=== PATIENT | male | born 1990 | race Caucasian/White ===

== ENCOUNTER → 2018-03-19 09:07 | Outpatient (CLI) | payer OTHER, SELFPAY ==
--- NOTE | 2018-03-19 09:13 | RAD_ITS ---
STUDY: X-RAY - LEFT FOOT CLINICAL: Male, 27 years old. Rolled ankle 2 days ago. Lateral bruising. TECHNIQUE: view(s) of the foot. COMPARISON: None. FINDINGS: Normal talus, calcaneus, and tarsal bones. Normal visualized subtalar, talonavicular, calcaneocuboid, tarsal and tarsometatarsal articulations. Normal metatarsi. Normal metatarsophalangeal joint of the great toe. There is a bipartite fibula sesamoid. Normal interphalangeal joint of the great toe. Normal phalanges of the great toe. Normal second through fifth metatarsophalangeal joints. Normal interphalangeal joints and phalanges of the lesser toes. The soft tissue structures are unremarkable. RAD/Foot min 3 Views IMPRESSION: Normal x-ray examination of the foot. Electronically Signed: Claus Montero DO at 23:45 EDT Tel [phone], Service support ,
--- NOTE | 2018-03-19 09:13 | RAD_ITS ---
STUDY: X-RAY - LEFT ANKLE REASON FOR EXAM: Male, 27 years old. Rolled ankle 2 days ago. Lateral bruising. TECHNIQUE: 3 view(s) of the ankle. COMPARISON: Left foot, March 19, 2018. FINDINGS: Normal visualized distal tibia and fibula. There are small bony densities along the medial aspect of the talus near the tip of the medial malleolus which appear well-corticated. Normal tibiotalar articulation and ankle mortise. Normal visualized talus and calcaneus. The visualized subtalar, talonavicular, calcaneocuboid and tarsal articulations are normal. Soft tissue swelling about the ankle. RAD/Ankle min 3 Views IMPRESSION: Soft tissue swelling of the ankle. There are small bony densities along the medial malleolus thought to represent secondary ossicles versus old evulsion fractures. The possibility of a current avulsion fracture cannot be completely ruled out. Electronically Signed: Claus Montero DO at 23:47 EDT Tel [phone], Service support ,
== END ==
PROVIDERS: Family Provider Internal Medicine; PCP Internal Medicine; Visit Provider Physician Assistant
DX: S93.402A Sprain of unspecified ligament of left ankle, initial encounter (principal); S93.602A Unspecified sprain of left foot, initial encounter; X58.XXXA Exposure to other specified factors, initial encounter; Y93.9 Activity, unspecified; Y92.9 Unspecified place or not applicable; Y99.9 Unspecified external cause status
CPT/HCPCS: 73610; 73630

== ENCOUNTER → 2019-07-19 10:04 | Outpatient (CLI) | payer OTHER, SELFPAY ==
[2019-07-19 15:28] VITALS: BMI 29.5
== END ==
PROVIDERS: PCP Internal Medicine; Referring Provider Physician Assistant; Visit Provider Physician Assistant
DX: J02.9 Acute pharyngitis, unspecified (principal)
CPT/HCPCS: 87070; 87077; 87186

== ENCOUNTER 2019-09-10 23:53 | Emergency (ER) | payer OTHER, SELFPAY ==
[2019-08-19 17:26] VITALS: BMI 29.5
[2019-09-10 23:54] VITALS: BP 142/76; PULSE 127; RESP 20; TEMP 36.6; O2SAT 97; BMI 34.6
--- NOTE | 2019-09-11 00:01 | EKG12_ITS ---
Test Reason : DYSRHYTHMIA Blood Pressure : / mmHG Vent. Rate : 120 BPM Atrial Rate : 120 BPM P-R Int : 154 ms QRS Dur : 090 ms QT Int : 320 ms P-R-T Axes : 036 053 012 degrees QTc Int : 452 ms Sinus tachycardia Otherwise normal ECG Confirmed by ROLANDO QUEZADA, RAFI ([id number]), purchasing expeditor DEBORAH HOANG ([id number]) on 09/13/2019 1:50:20 PM Referred By: TL Confirmed By:KALYAN MARSHALL MD
--- NOTE | 2019-09-11 00:02 | ED.VIS.GEN ---
History of Present Illness Chief Complaint: Substance Abuse Informant: Patient Onset: Today Narrative: Patient brought by EMS from bar for palpitations after smoking for what is told a cigarette. This was at 11 PM. States he was drinking, states he smoked unfiltered cigarette for which he thought. Suddenly had palpitations racing heart and states feeling of impending doom. Nausea and vomiting. Denies any past medical history. Denies any illicit drug use. Allergy to pertussis. EMS EKG reviewed with sinus tachycardia in the 120s. Prior similar symptoms: No Past Medical History - Allergies and Home Meds Allergies/Adverse Reactions: Allergies PERTUSIS VAC Allergy (Uncoded 09/10/19 23:57) Hives Primary Care Physician: Sommer العراقي DO [Primary Care Provider] - Past Medical History: None Smoking Status: Never smoker Review of Systems General: Denies: Chills, Fever, Sweats Eyes: Denies: Visual changes - bilaterally, Diplopia ENT: Denies: Rhinorrhea, Sore throat Cardiovascular: Reports: Palpitations, Heart racing. Denies: Chest pain Respiratory: Denies: Dyspnea, Cough, Dyspnea on exertion Gastrointestinal: Reports: Nausea, Vomiting. Denies: Abdominal pain, Diarrhea, Melena, Hematochezia Genitourinary: Denies: Dysuria, Hematuria, Frequency Musculoskeletal: Denies: Back pain, Extremity Pain Skin: Denies: Rash, Wounds Neurological: Denies: Headache, Weakness, Numbness Physical Exam Vital Signs/Narrative: Vital Signs Temp Pulse Resp BP Pulse Ox 09/10/19 23:54 98 F 127 H 20 H 142/76 H 97 Inital Vital Signs reviewed: Yes General: Well nourished, Well developed, - - Anxious, nontoxic, cooperative following commands. Head: Normocephalic, Atraumatic Eyes: Perrl, EOMI ENT: Moist mucous membranes, No rhinorrhea Neck: Supple, Nontender Cardiovascular: Regular rate, Regular rhythm, No murmurs, Tachycardia Respiratory: No distress, CTA bilaterally, Chest nontender Abdomen: Soft, Nontender, Nondistended, Normal bowel sounds Back: Nontender, Normal Inspection Extremities: Nontender, No edema Skin: Normal color, No rash Neurological: Alert, Oriented x3, Cranial nerves II-XII grossly intact, Normal Strength, Normal Sensation Psychological: Normal affect, Normal Mood Diagnostic/Tx/Re-eval - Medical Decision Making Patient's history I suspect drug ingestion with a stimulant causing his palpitations and tachycardia. He is anxious. IV is placed IV fluids, Ativan given. Did initially order for tox screen for further evaluation however unable to collect. He was monitored heart rate improved to the low 100s, clinically was improving. He is clinically stable. He is not suicidal homicidal. He will be discharged with outpatient follow-up. All questions were answered. ED Disposition - Plan for ED Patient: Disposition: Home or Assisted Living Diagnosis: Palpitations, likely drug inhalation Instructions: Palpitations Referrals: Sommer العراقي DO [Primary Care Provider] - 5-7 Days Additional Instructions: Suspect you smoked drug stimulant causing symptoms.
[2019-09-11] MEDS: Ondansetron 4 MG/2 ML Vial IV (00:24)
[2019-09-11] MEDS: 0.9% Normal Saline 1,000 ML 1000 ML IV (00:24)
[2019-09-11] MEDS: LORazepam 2 MG/ML Syringe 1 MG IV (00:26)
[2019-09-11 02:33] VITALS: PULSE 104; RESP 16; O2SAT 96
[2019-09-11 03:31] VITALS: BP 145/70; PULSE 107; RESP 16; O2SAT 96
== END 2019-09-11 03:32 | disposition home or self-care (01) ==
PROVIDERS: Emergency Provider Emergency Medicine; PCP Internal Medicine
DX: R00.2 Palpitations (principal); R00.0 Tachycardia, unspecified
CPT/HCPCS: 93005; 96361; 96374; 96375; 99285; J7030; J2405

== ENCOUNTER → 2024-12-15 | Outpatient (CLI) | payer SELFPAY ==
--- NOTE | 2024-12-15 07:30 | CT_ITS ---
PROCEDURE: LIMITED CHEST CT CARDIAC ONLY 12/15/2024 REASON FOR EXAM: MIXED HYPERLIPIDEMIA TECHNIQUE: LIMITED CHEST CT CARDIAC ONLY One or more dose reduction techniques were used (e.g., Automated exposure control, adjustment of the mA and/or kV according to patient size, use of iterative reconstruction technique). RADIATION DOSE SUMMARY: CTDlvol: 12.19 mGy DLP: 219.42 mGycm COMPARISON: None FINDINGS: Mild right coronary artery calcification. The lungs are clear. Fatty infiltration of the liver. Small hiatal hernia. CT/Limited Chest CT Cardiac Only IMPRESSION: Mild degree of coronary artery calcification. Reading Location: [place] [id number]
--- NOTE | 2024-12-15 09:46 | CA.SCORE ---
Calcium Scoring Date of Study:: 12/15/24 Indications Indications: Hyperlipidemia Coronary Calcium Scoring: High-resolution Computed Tomographic imaging of the chest was performed on [12/15/2024], with particular attention paid to the coronary arteries. Images from the examination were analyzed for the presence and extent of coronary artery calcification , using coronary calcium quantification software. The patient tolerated the procedure well and there were no complications. The results of the coronary calcification analysis are provided below. Findings Coronary Artery Left Main (LM): 0 Left Anterior Descending (LAD): 0 Left Circumflex (LCX): 0 Right Coronary Artery (RCA): 0 Total Agatston Score: 0 Percentile Rankin% Calcium Scoring Interpretation: Different methods to categorize the overall amount of coronary plaque. Overall amount CAC SIS Visual of coronary plaque P1 Mild -100 <2 1-2 vessels with mild amount of plaque P2 Moderate 101-300 3-4 1-2 vessels with moderate amount, 3 vessels with mild amount of plaque P3 Severe 301-999 5-7 3 vessels with moderate amount, 1 vessel with severe amount of plaque P4 Extensive >1000 >8 2-3 vessels with severe amount of plaque Conclusion: No atherosclerotic plaque
== END | disposition home or self-care (01) ==
LOC: CT 07:28
PROVIDERS: PCP Internal Medicine; Referring Provider Internal Medicine; Visit Provider Internal Medicine
DX: E78.2 Mixed hyperlipidemia (principal)
CPT/HCPCS: 75571; 76380

== ENCOUNTER → 2025-05-16 | Outpatient (CLI) | payer OTHER, SELFPAY ==
--- OUTSIDE RECORDS SUMMARY | 2025-05-16 19:18 | XMS RPT_ITS | CCD ---
Author Organization [facility] Team Providers Care Veterans Service Officer Name Role Phone Sommer العراقي Unavailable Dileep Kelley Unavailable Rosalba Cook Unavailable Lashae Solomon Unavailable Unavailable Lashae Stevens Unavailable Unavailable Magno Layne Unavailable Unavailable Unavailable Unavailable Sommer العراقي Unavailable Ruth Hope Unavailable Dileep Kelley Unavailable Rosalba Cook Unavailable Magno Knox Unavailable Unavailable [place] Unavailable Unavailable Unavailable Neda Baron Unavailable Unavailable Yessica Sims Unavailable Unavailable Sommer العراقي DO Unavailable Ruth Hope Unavailable Dr. Dileep Kelley Unavailable Rosalba Cook MD Unavailable Loraine FLORENCE Neda Unavailable Unavailable Magno Knox LPN Unavailable Unavailable Unavailable Unavailable Sommer العراقي DO Unavailable Sommer العراقي DO Attending Unavailable Sommer العراقي DO Referring Unavailable Sommer العراقي DO Consulting Unavailable Korina LUNA, Kayela Unavailable Unavailable Dr. Sommer العراقي DO Primary Care Provider Dr. Sommer العراقي DO Attending Provider Dr. Sommer العراقي DO Referring Provider Dr. Sommer العراقي DO Other Provider Angelina QUEZADA, Dr. Galaviz Attending Provider Sommer العراقي Primary Care Unavailable Guillaume Alfaro Attending Unavailable Sommer العراقي Referring Unavailable Sommer العراقي Consulting Unavailable Sommer العراقي Primary Care Unavailable Sommer العراقي Referring Unavailable Sommer العراقي Attending Unavailable Allergies Allergy Classification Reported Allergen(s) Allergy Type Date of Onset Reaction(s) Facility (15 sources) acellular pertussis vaccine, inactivated / diphtheria toxoid vaccine, inactivated / tetanus toxoid vaccine, inactivated; Translations: [DTP Toxoids Adsorbed *TOXOIDS*] Drug Allergy [facility] Work Phone: Comment on above: as childrash (1 source) Pertussis Vaccines Allergy to substance 2 [facility] (1 source) Pertussis Vaccine Drug Allergy 2 [facility] Repository Medications Current Medications Medication Drug Class(es) Dates Sig (Normalized) Sig (Original) amoxicillin 875 mg / clavulanate 125 mg oral tablet (17 sources) Penicillin-class Antibacterial Start: 08-01-2022 Amoxicillin-Pot Clavulanate 875-125 mg tablet Active 1 {tbl} PO TWICE A DAY August 01, 2022 1:00am Start: 06-24-2019 End: 07-19-2019 Amoxicillin-Pot Clavulanate 875-125 mg tablet Discontinued 1 {tbl} PO TWICE A DAY June 24, 2019 1:00am July 19, 2019 4:28pm Start: 03-27-2017 End: 04-10-2017 take 1 tablet by mouth twice daily at mealtime Amoxicillin-Pot Clavulanate 875-125 MG Oral Tablet 1 (one) Tablet BID for 14 days Quantity: 28 {Tablet} Refills: 0 Ordered: 27-Mar-2017 Lashae Solomon Start : 27-Mar-2017 End : 10-Apr-2017 Inactive Comments: Take with food. Comment on above: Take with food. Completed/Discontinued Medications Medication Drug Class(es) Dates Sig (Normalized) Sig (Original) amLODIPine 2.5 mg oral tablet (13 sources) Dihydropyridine Calcium Channel Karli Start: 03-28-2022 take 1 tablet by mouth once daily Norvasc 2.5 MG Oral Tablet 1 (one) Tablet qd for 0 days Quantity: 30 {Tablet} Refills: 4 Ordered: 28-Mar-2022 Dulce Maria DO, Sommer Dulce Maria DO, Sommer Start : 28-Mar-2022 Active Start: 10-09-2021 take 1 tablet by marianne th once daily Norvasc 2.5 MG Oral Tablet 1 (one) Tablet qd for 0 days Quantity: 30 {Tablet} Refills: 4 Ordered: 09-Oct-2021 Dulce Maria DO, Sommer Dulce Maria DO, Sommer Start : 09-Oct-2021 Active Start: 01-22-2021 take 1 tablet by marianne th once daily Norvasc 2.5 MG Oral Tablet 1 (one) Tablet qd for 0 days Quantity: 30 {Tablet} Refills: 4 Ordered: 22-Jan-2021 Dulce Maria DO, Sommer Dulce Maria DO, Sommer Start : 22-Jan-2021 Active Start: 08-18-2020 take 1 tablet by marianne th once daily Norvasc 2.5 MG Oral Tablet 1 (one) Tablet qd for 0 days Quantity: 30 {Tablet} Refills: 4 Ordered: 18-Aug-2020 Dulce Maria DO, Sommer Dulce Maria DO, Sommer Start : 18-Aug-2020 Active Start: 03-15-2020 take 1 tablet by marianne th once daily Norvasc 2.5 MG Oral Tablet 1 (one) Tablet qd for 0 days Quantity: 30 {Tablet} Refills: 4 Ordered: 15-Mar-2020 Dulce Maria DO, Sommer Dulce Maria DO, Sommer Start : 15-Mar-2020 Active busPIRone hydrochloride 15 mg oral tablet (9 sources) Start: 2021 End: 03-28-2022 take 1 tablet by mouth twice daily busPIRone HCl 15 MG Oral Tablet 1 (one) Tablet bid for 0 days Quantity: 60 {Tablet} Refills: 3 Ordered: 28-Mar-2022 Calvin Hui CMA Start : 23-Jul-2021 End : 28-Mar-2022 Inactive Start: 02-12-2021 take 1 tablet by marianne th twice daily busPIRone HCl 15 MG Oral Tablet 1 (one) Tablet bid for 0 days Quantity: 60 {Tablet} Refills: 3 Ordered: 12-Feb-2021 Dulce Maria DO, Sommer Dulce Maria DO, Sommer Start : 12-Feb-2021 Active Start: 11-08-2020 take 1 tablet by marianne th twice daily busPIRone HCl 15 MG Oral Tablet 1 (one) Tablet bid for 0 days Quantity: 60 {Tablet} Refills: 3 Ordered: 08-Nov-2020 Dulce Maria DO, Sommer Dulce Maria DO, Sommer Start : 08-Nov-2020 Active Start: 08-04-2020 take 1 tablet by marianne th twice daily busPIRone HCl 15 MG Oral Tablet 1 (one) Tablet bid for 0 days Quantity: 60 {Tablet} Refills: 3 Ordered: 04-Aug-2020 Neda Baron LPN Start : 04-Aug-2020 Active citalopram 20 mg oral tablet (20 sources) Serotonin Reuptake Inhibitor Start: 04-05-2022 take 1 tablet by mouth once daily at bedtime Citalopram Hydrobromide 20 MG Oral Tablet 1 (one) Tablet qhs for 90 days Quantity: 90 {Tablet} Refills: 3 Ordered: 05-Apr-2022 Dulce Maria DO, Sommer Dulce Maria DO, Sommer Start : 05-Apr-2022 Active Start: 12-21-2020 take 1 tablet by marianne th once daily at bedtime Citalopram Hydrobromide 20 MG Oral Tablet 1 (one) Tablet qhs for 90 days Quantity: 90 {Tablet} Refills: 3 Ordered: 21-Dec-2020 Dulce Maria DO, Sommer Dulce Maria DO, Sommer Start : 21-Dec-2020 Active Start: 08-04-2020 take 1 tablet by marianne th once daily at bedtime Citalopram Hydrobromide 20 MG Oral Tablet 1 (one) Tablet qhs for 0 days Quantity: 30 {Tablet} Refills: 6 Ordered: 04-Aug-2020 Dulce Maria DO, Sommer Dulce Maria DO, Sommer Start : 04-Aug-2020 Active Start: 05-12-2020 take 1 tablet by marianne th once daily at bedtime Citalopram Hydrobromide 20 MG Oral Tablet 1 (one) Tablet qhs for 0 days Quantity: 30 {Tablet} Refills: 6 Ordered: 12-May-2020 [place] CNP Start : 12-May-2020 Active Start: 11-29-2019 End: 05-12-2020 take 1 tablet by mouth once daily at bedtime Citalopram Hydrobromide 10 MG Oral Tablet 1 (one) Tablet qhs for 0 days Quantity: 90 {Tablet} Refills: 4 Ordered: 12-May-2020 [place] Start : 29-Nov-2019 End : 12-May-2020 Inactive Start: 08-18-2018 take 1 tablet by marianne th once daily at bedtime Citalopram Hydrobromide 10 MG Oral Tablet 1 (one) Tablet qhs for 0 days Quantity: 30 {Tablet} Refills: 1 Ordered: 18-Aug-2018 Sommer العراقي DO, DO, Kathleen Start : 18-Aug-2018 Active Start: 06-09-2018 take 1 tablet by marianne th once daily at bedtime Citalopram Hydrobromide 10 MG Oral Tablet 1 (one) Tablet qhs for 0 days Quantity: 30 {Tablet} Refills: 1 Ordered: 09-Jun-2018 Drea Quinn DO Start : 09-Jun-2018 Active Start: 03-19-2018 take 10 mg by mouth once daily Citalopram 20 mg tablet Active 10 mg PO DAILY March 19, 2018 12:00am doxycycline hyclate 100 mg oral capsule (1 source) Tetracycline-class Drug Start: 2019 End: 2019 take 1 capsule by mouth twice daily Doxycycline Hyclate 100 mg capsule Discontinued 100 mg PO TWICE A DAY 18 04July 23, 2019 1:00am August 01, 2019 1:00am 2019 12:29pm esomeprazole 20 mg delayed release oral tablet (15 sources) Proton Pump Inhibitor Start: 12-25-2017 End: 01-24-2018 take 1 tablet by mouth once daily before mealtime NexIUM 24HR 20 MG Oral Tablet Delayed Release 1 (one) Tablet PO Daily Take at least 30 before a meal. for 30 days Quantity: 30 {Tablet} Refills: 0 Ordered: 25-Dec-2017 Lashae Solomon Start : 25-Dec-2017 End : 24-Jan-2018 Inactive hydrOXYzine pamoate 25 mg oral capsule (16 sources) Antihistamine Start: 01-31-2017 End: 11-29-2019 take 1 capsule by mouth every eight hours as needed for anxiety Vistaril 25 MG Oral Capsule 1 (one) Capsule Capsule q 8 hr prn anxiety for 0 days Quantity: 60 {Capsule} Refills: 0 Ordered: 29-Nov-2019 Elza Dumont CMAin Start : 31-Jan-2017 End : 29-Nov-2019 Inactive Comments: may substitute generic Start: 12-25-2016 End: 03-19-2018 take 1 capsule by mouth four times daily as needed for anxiety Hydroxyzine Pamoate 25 MG capsule Discontinued 25 mg PO 4 TIMES DAILY NEEDED as needed for Anxiety December 25, 2016 12:00am March 19, 2018 9:09am Comment on above: may substitute gener ic loratadine 10 mg oral tablet (15 sources) Start: 8 End: 0 take 1 tablet by mouth once daily Claritin 10 MG Oral Tablet 1 (one) Tablet Tablet PO Daily for 0 days Quantity: 30 {Tablet} Refills: 0 Ordered: 29-Nov-2019 Elza Dumont CMAin Start : 18-Nov-2017 End : 29-Nov-2019 Inactive LORazepam 0.5 mg oral tablet (15 sources) Benzodiazepine Start: 0 End: 2 take 1 tablet by mouth once daily as needed LORazepam 0.5 MG Oral Tablet 1 (one) Tablet qd prn for 0 days Quantity: 5 {Tablet} Refills: 0 Ordered: 28-Mar-2022 Korina Calvin LUNA Start : 12-May-2020 End : 28-Mar-2022 Inactive Comments: [email or web address] rrs run Start: 12-26-2016 End: 11-29-2019 take 1 tablet by mouth once daily as needed LORazepam 0.5 MG Oral Tablet 1 (one) Tablet Tablet qd prn for 0 days Quantity: 5 {Tablet} Refills: 0 Ordered: 29-Nov-2019 Luigiambrose Elza LUNAin Start : 26-Dec-2016 End : 29-Nov-2019 Inactive Comments: five Comment on above: five [id number] s run oseltamivir 75 mg oral capsule (15 sources) Neuraminidase Inhibitor Start: 017 End: 017 take 1 capsule by mouth twice daily Tamiflu 75 MG Oral Capsule 1 (one) Capsule Capsule BID for 5 days Quantity: 10 {Capsule} Refills: 0 Ordered: 25-Mar-2017 Neda Baron LPN Start : 25-Mar-2017 End : 30-Mar-2017 Inactive sulfamethoxazole 800 mg / trimethoprim 160 mg oral tablet (1 source) Dihydrofolate Reductase Inhibitor Antibacterial, Sulfonamide Antimicrobial Start: End: Sulfamethoxazole-Tr imethoprim 800-160 mg tablet Discontinued 1 {tbl} PO TWICE A DAY July 22, 2019 1:00am August 19, 2019 6:14pm NEGATED: Highlighted row has not occurred!drug or medication (7 sources) No Known Histori rebecca Medications NEGATED: Highlighted row has not occurred!No Known Historical Medications (5 sources) No Known Histori rebecca Medications Problems Active Problems Problem Classification Problem Date Documented Da te Episodic/Chronic Acute bronchitis (1 source) Acute bronchitis; Translations: [Acute bronchitis, unspecified] 08-01-2022 Episodic Anxiety disorders (20 sources) Anxiety; Translations: [Anxiety] 12-25-2017 Chronic Comment on above: Burn's depression sc ore: 41- moderate depressionBeck anxiety index: 32- moderate anxietyPHQ-9: 16 Cardiac dysrhythmias (1 source) Palpitations; Translations: [Palpitations] 09-12-2019 Episodic Conditions associated with dizziness or vertigo (18 sources) Lightheadedness; Translations: [Lightheaded] 12-25-2017 Episodic Contraceptive and procreative management (20 sources) Patient encounter status; Translations: [Family planning] 09-18-2020 Episodic Disorders of lipid metabolism (2 sources) Mixed hyperlipidemia; Translations: [Mixed hyperlipidemia] Onset: Chronic Esophageal disorders (20 sources) Gastroesophageal reflux disease; Translations: [Acid reflux] 12-25-2017 Chronic Essential hypertension (15 sources) Benign hypertension; Translations: [HTN (hypertension), benign] 09-18-2020 Chronic Fever of unknown origin (20 sources) Fever with chills; Translations: [Fever and chills] Resolved: 8 09-12-2017 Episodic Headache; including migraine (20 sources) Headache; Translations: [Headache] Resolved: 8 09-12-2017 Episodic Influenza (6 sources) Influenza Malaise and fatigue (20 sources) Fatigue; Translations: [Fatigue] Resolved: 8 09-12-2017 Episodic Nutritional deficiencies (20 sources) Vitamin D deficiency; Translations: [Vitamin D deficiency] 05-12-2020 Chronic Nutritional deficiencies (20 sources) Cobalamin deficiency; Translations: [B12 deficiency] 12-25-2017 Episodic Other circulatory disease (20 sources) Elevated blood pressure; Translations: [Elevated blood pressure reading] Resolved: 1 05-12-2020 Episodic Other ear and sense organ disorders (19 sources) Impacted cerumen, bilateral; Translations: [Impacted cerumen of bilateral ears] Resolved: 8 09-12-2017 Episodic Comment on above: Will come back when feeling better to get ears irrigated. Other gastrointestinal disorders (18 sources) Burping; Translations: [Belching] Resolved: 0 12-25-2017 Episodic Other gastrointestinal disorders (20 sources) Heartburn; Translations: [Heartburn] 12-25-2017 Episodic Other lower respiratory disease (20 sources) Cough; Translations: [Cough] Resolved: 0 12-25-2017 Episodic Other lower respiratory disease (18 sources) Apnea; Translations: [Witnessed episode of apnea] 12-25-2017 Episodic Other lower respiratory disease (20 sources) Dyspnea; Translations: [SOB (shortness of breath)] Resolved: 7 02-21-2017 Episodic Other nervous system disorders (20 sources) Paresthesia; Translations: [Paresthesia] Resolved: 0 12-25-2017 Episodic Other nutritional; endocrine; and metabolic disorders (20 sources) Body mass index 30+ - obesity; Translations: [BMI 31.0-31.9,adult] Resolved: 2 09-12-2017 Chronic Other nutritional; endocrine; and metabolic disorders (7 sources) Body mass index 25-29 - overweight; Translations: [BMI 29.0-29.9,adult] Resolved: 8 09-12-2017 Episodic Other nutritional; endocrine; and metabolic disorders (4 sources) Overweight in adulthood with body mass index of 25 or more but less than 30; Translations: [BMI 29.0-29.9,adult] Resolved: 8 09-12-2017 Episodic Other skin disorders (2 sources) Alopecia areata; Translations: [Patchy loss of hair] 12-25-2017 Episodic Other skin disorders (20 sources) Loss of hair; Translations: [Patchy loss of hair] 05-12-2020 Episodic Comment on above: gre back but seals Other upper respiratory disease (18 sources) Allergic rhinitis due to pollen; Translations: [Seasonal allergic rhinitis due to pollen] 12-25-2017 Chronic Other upper respiratory disease (20 sources) Pain in throat Episodic Other upper respiratory disease (18 sources) Nasal discharge; Translations: [Nasal drainage] Resolved: 0 12-25-2017 Episodic Other upper respiratory disease (18 sources) Nasal sinus problem; Translations: [Sinus pressure] Resolved: 8 09-12-2017 Episodic Other upper respiratory infections (18 sources) Chronic sinusitis, unspecified; Translations: [Bacterial sinusitis] Resolved: 8 09-12-2017 Chronic Other upper respiratory infections (20 sources) Sore throat symptom; Translations: [Sore throat] 11-18-2017 Episodic Comment on above: Rapid strep done 03/01 6-negative, awaitng throat culture results. Residual codes; unclassified (18 sources) Generalized aches and pains; Translations: [Body aches] Resolved: 8 09-12-2017 Episodic Residual codes; unclassified (20 sources) Non-smoker; Translations: [Non-smoker] 09-18-2020 Episodic Residual codes; unclassified (6 sources) Influenza vaccination declined; Translations: [Influenza vaccination declined (Renamed from Refused influenza vaccine)] 03-28-2022 Episodic Sprains and strains (3 sources) Shoulder strain; Translations: [Strain of unspecified muscle, fascia and tendon at shoulder and upper arm level, right arm, initial encounter] 06-25-2019 Episodic Unclassified (20 sources) BMI 31.0-31.9,adult Unclassified (20 sources) Unclassified (20 sources) B12 deficiency Unclassified (20 sources) Patient encounter status; Translations: [Encounter for screening for lipid disorder] 12-25-2017 Unclassified (20 sources) Non-smoker; Translations: [Non-smoker] 12-25-2017 Unclassified (20 sources) Patchy loss of hair Unclassified (12 sources) Family planning Unclassified (12 sources) Witnessed episode of apnea Unclassified (20 sources) Elevated blood pressure reading Unclassified (20 sources) BMI 32.0-32.9,adult Unclassified (6 sources) HTN (hypertension), benign Unclassified (10 sources) Acid reflux Past or Other Problems Problem Classification Problem Date Documented Da te Episodic/Chronic Esophageal disorders (2 sources) Esophageal disorders Headache; including migraine (15 sources) Headache; including migraine Other ear and sense organ disorders (5 sources) Impacted cerumen of bilateral ears; Translations: [Bilateral impacted cerumen] Resolved: 09-12-2017 09-12-2017 Comment on above: Will come back when feeling better to get ears irrigated. Other nutritional; endocrine; and metabolic disorders (5 sources) Body mass index 25-29 - overweight; Translations: [BMI 29.0-29.9,adult] Resolved: 09-12-2017 09-12-2017 Chronic Residual codes; unclassified (2 sources) Increased body mass index; Translations: [BMI 29.0-29.9,adult] Resolved: 09-12-2017 09-12-2017 Episodic Unclassified (20 sources) Bilateral impacted cerumen Unclassified (12 sources) Body aches Unclassified (20 sources) BMI 30.0-30.9,adult Unclassified (12 sources) Sinusitis, bacterial Unclassified (12 sources) Lightheaded Unclassified (12 sources) BMI 29.0-29.9,adult Unclassified (12 sources) Sinus pressure Unclassified (12 sources) Belching Unclassified (12 sources) Seasonal allergic rhinitis due to pollen Unclassified (12 sources) Nasal drainage Unclassified (1 source) history of left shoulder repair 01-18-2022 Results Test Name Value Interpretation Reference Range Facility Coronary Angiography CTon Coronary Angiography [facility] Services [address] [place] [address] 12/15/24 0946 MR#: [id number] Acct: [id number] Name: SHEYLA LAWRENCE Rep #: [id number] : 1990 34 From: Guillaume Alfaro MD PCP: Dr. Sommer العراقي, DO Status:REG CLI Y Location: CT Calcium Scoring Date of Study:: 12/15/24 Indications Indications: Hyperlipidemia Coronary Calcium Scoring: High-resolution Computed Tomographic imaging of the chest was performed on [12/15/2024], with particular attention paid to the coronary arteries. Images from the examination were analyzed for the presence and extent of coronary artery calcification , using coronary calcium quantification software. The patient tolerated the procedure well and there were no complications. The results of the coronary calcification analysis are provided below. Findings Coronary Artery Left Main (LM): 0 Left Anterior Descending (LAD): 0 Left Circumflex (LCX): 0 Right Coronary Artery (RCA): 0 Total Agatston Score: 0 Percentile Rankin% Calcium Scoring Interpretation: Different methods to categorize the overall amount of coronary plaque. Overall amount CAC SIS Visual of coronary plaque P1 Mild -100 <2 1-2 vessels with mild amount of plaque P2 Moderate 101-300 3-4 1-2 vessels with moderate amount, 3 vessels with mild amount of plaque P3 Severe 301-999 5-7 3 vessels with moderate amount, 1 vessel with severe amount of plaque P4 Extensive >1000 >8 2-3 vessels with severe amount of plaque Conclusion: No atherosclerotic plaque 12/15/24 0948 Date Guillaume Alfaro MD Cosigner Signature (if applicable): Date CC: Dr. Guillaume Alfaro MD; Dr. Sommer العراقي DO Signed Normal [facility] Limited Chest CT Cardiac Onl yon 12-15-[address] Cardiac Only [facility] Imaging Services [address] [place] [id number] Cardiac Only MR#: [id number] Acct: [id number] Name: SHEYLA LAWRENCE Rep #: [id number] : 1990 M 34 From: Guicho montiel MD PCP: Dr. Sommer العراقي DO Status: REG CLI Study: Limited Chest CT Cardiac Only Date of Exam: Exam# [id number] Ordering Dr: Sommer العراقي DO PROCEDURE: LIMITED CHEST CT CARDIAC ONLY 12/15/2024 REASON FOR EXAM: MIXED HYPERLIPIDEMIA TECHNIQUE: LIMITED CHEST CT CARDIAC ONLY One or more dose reduction techniques were used (e.g., Automated exposure control, adjustment of the mA and/or kV according to patient size, use of iterative reconstruction technique). RADIATION DOSE SUMMARY: CTDlvol: 12.19 mGy DLP: 219.42 mGycm COMPARISON: None FINDINGS: Mild right coronary artery calcification. The lungs are clear. Fatty infiltration of the liver. Small hiatal hernia. CT/Limited Chest CT Cardiac Only IMPRESSION: Mild degree of coronary artery calcification. Reading Location: [place] [address] CC: Dr. Sommer العراقي DO Assistant Branch Operations Manager: Signed Normal [facility] CALCIFIDIOL ([id number]) VIT D 25 Ordered By: Airline Transport Pilot on 04-17-2022 25-hydroxyvitamin D [Mass/Vol] 31.8 ng/mL Normal 30.0-100.0 [facility]; [facility] Work Phone: Comment on above: Vitamin D deficiency has been defined by the [place] of[employer] and an Endocrine Society practice guideline as alevel of serum 25-OH vitamin D less than 20 ng/mL (1,2).The Endocrine Society went on to further define vitamin Dinsufficiency as a level between 21 and 29 ng/mL (2).1. IOM ([place] of [employer]). 2010. Dietary reference intakes for calcium and D. [place]: The National Academies Press.2. Sabrina MF, Lara [place], Gilmer JACOME, et al. Evaluation, treatment, and prevention of vitamin D deficiency: an Endocrine Society clinical practice guideline. JCEM. 2010; 96(7):1911-30. PATIENT WAS FASTINGP ERFORMED BY: [id number] [facility] [id number] CBC W/AUTO DIFF WBC (81181)O rdered By: Airline Transport Pilot on 04-17-2022 Basophils (Bld) [#/Vol] 0.0 10*3/uL Normal 0.0-0.2 [facility]; [facility] Work Phone: Comment on above: PATIENT WAS FASTINGP ERFORMED BY: [facility] [id number]Dublin [place] [id number] Basophils/100 WBC (Bld) 1 % Normal [facility]; [facility] Work Phone: Comment on above: PATIENT WAS FASTINGP ERFORMED BY: CB [facility] [id number]Dublin [place] [id number] Eosinophils (Bld) [#/Vol] 0.1 10*3/uL Normal 0.0-0.4 [facility]; [facility] Work Phone: Comment on above: PATIENT WAS FASTINGP ERFORMED BY: [facility] [id number]Dublin [place] [id number] Eosinophils/100 WBC (Bld) 1 % Normal [facility]; [facility] Work Phone: Comment on above: PATIENT WAS FASTINGP ERFORMED BY: [facility] [id number] [facility] [id number] Erythrocyte distribution width (RBC) [Ratio] 12.1 % Normal 11.6-15.4 [facility]; [facility] Work Phone: Comment on above: PATIENT WAS FASTINGP ERFORMED BY: [facility] [id number] RoadNovant Health [facility] Orthopaedic Hospitalin [place] [id number] Hematocrit (Bld) [Volume fraction] 49.4 % Normal 37.5-51.0 [facility]; [facility] Work Phone: Comment on above: PATIENT WAS FASTINGP ERFORMED BY: [facility] [id number]Dublin [place] [id number] Hemoglobin (Bld) [Mass/Vol] 17.0 g/dL Normal 13.0-17.7 [facility]; [facility] Work Phone: Comment on above: PATIENT WAS FASTINGP ERFORMED BY: CB [facility] [id number]Dublin [place] [id number] Immature granulocytes (Bld) [#/Vol] 0.0 10*3/uL Normal 0.0-0.1 [facility]; [facility] Work Phone: Comment on above: PATIENT WAS FASTINGP ERFORMED BY: BRUCE Lab[facility] Lazaro[address] [place] [id number] Immature granulocytes/100 WBC (Bld) 0 % Normal [facility]; [facility] Work Phone: Comment on above: PATIENT WAS FASTINGP ERFORMED BY: [facility] [id number] [place] [id number] Lymphocytes (Bld) [#/Vol] 1.7 10*3/uL Normal 0.7-3.1 [facility]; [facility] Work Phone: Comment on above: PATIENT WAS FASTINGP ERFORMED BY: BRUCE Cornelius [id number] [facility] [place] [id number] Lymphocytes/100 WBC (Bld) 39 % Normal [facility]; [facility] Work Phone: Comment on above: PATIENT WAS FASTINGP ERFORMED BY: [facility] Hnyzco[address] [facility]in [place] [id number] MCH (RBC) [Entitic mass] 30.4 pg Normal 26.6-33.0 [facility]; [facility] Work Phone: Comment on above: PATIENT WAS FASTINGP ERFORMED BY: [facility] Laevdm[address] [facility]blin [place] [id number] MCHC (RBC) [Mass/Vol] 34.4 g/dL Normal 31.5-35.7 [facility] prehensive Internal Medicine; [facility] Work Phone: Comment on above: PATIENT WAS FASTINGP ERFORMED BY: Labco Iqnuwy[address] [facility] HospitalDublin [place] [id number] MCV (RBC) [Entitic vol] 88 fL Normal 79-97 [facility]; [facility] Work Phone: Comment on above: PATIENT WAS FASTINGP ERFORMED BY: [facility] Ryqfzi5[address] RoadDublin [place] [id number] Monocytes (Bld) [#/Vol] 0.5 10*3/uL Normal 0.1-0.9 [facility]; [facility] Work Phone: Comment on above: PATIENT WAS FASTINGP ERFORMED BY: BRUCE [facility] Wwinsf3986 [address] RoadDublin [place] [id number] Monocytes/100 WBC (Bld) 13 % Normal [facility]; [facility] Work Phone: Comment on above: PATIENT WAS FASTINGP ERFORMED BY: CB [facility] Bbxlxi2842 [address] RoadDublin [place] [id number] Neutrophils (Bld) [#/Vol] 2.0 10*3/uL Normal 1.4-7.0 [facility]; [facility] Work Phone: Comment on above: PATIENT WAS FASTINGP ERFORMED BY: CB [facility] Lyardo2817 [address] RoadDublin [place] [id number] Neutrophils/100 WBC (Bld) 46 % Normal [facility]; [facility] Work Phone: Comment on above: PATIENT WAS FASTINGP ERFORMED BY: CB [facility] Bllohp7902 [address] RoadDublin [place] [id number] Platelets (Bld) [#/Vol] 236 10*3/uL Normal 150-450 [facility]; [facility] Work Phone: Comment on above: PATIENT WAS FASTINGP ERFORMED BY: CB [facility] Wpoyot3053 [address] RoadDublin [place] [id number] RBC (Bld) [#/Vol] 5.60 10*6/uL Normal 4.14-5.80 Compr ehensive Internal Medicine; [facility] Work Phone: Comment on above: PATIENT WAS FASTINGP ERFORMED BY: CB [facility] Cjeuce7989 [address] RoadDublin [place] [id number] WBC (Bld) [#/Vol] 4.3 10*3/uL Normal 3.4-10.8 Compre hensive Internal Medicine; [facility] Work Phone: Comment on above: PATIENT WAS FASTINGP ERFORMED BY: CB [facility] Cmnbka1148 [address] RoadDublin [place] [id number] GONORRHEA BY URINE ([id number])Or dered By: Airline Transport Pilot on 04-17-2022 C. trachomatis rRNA JEFF+probe Ql (Unsp spec) Negative Normal [facility]; [facility] Work Phone: Comment on above: PATIENT NOT FASTINGP ERFORMED BY: =G [facility] Hrhrqgwcak722 [facility] W [id number] Information: SRC:UR N. gonorrhoeae rRNA JEFF+probe Ql (Unsp spec) Negative Normal [facility]; [facility] Work Phone: Comment on above: PATIENT NOT FASTINGP ERFORMED BY: =G [facility] Qsgjnrmopb670 [facility] [place] [id number] Information: SRC:UR LIPID PANEL (97417)Ordered B y: Airline Transport Pilot on 04-17-2022 Cholesterol [Mass/Vol] 224 mg/dL Abnormal 100-199 Co cox northensive Internal Medicine; [facility] Work Phone: Comment on above: PATIENT WAS FASTINGP ERFORMED BY: BRUCE [facility] Izfsld0989 [address] RoadDublin [place] [id number] Cholesterol in HDL [Mass/Vol] 50 mg/dL Normal [facility]; [facility] Work Phone: Comment on above: PATIENT WAS FASTINGP ERFORMED BY: CB [facility] Jnygjl5024 [address] RoadDublin [place] [id number] Triglyceride [Mass/Vol] 100 mg/dL Normal 0-149 [facility]; [facility] Work Phone: Comment on above: PATIENT WAS FASTINGP ERFORMED BY: CB [facility] Iuwtcf1500 [address] RoadDublin [place] [id number] LIPID PANEL (72367) 18 mg/dL Normal 5-40 Compr ehensive Internal Medicine; [facility] Work Phone: Comment on above: PATIENT WAS FASTINGP ERFORMED BY: CB [facility] Azaoxa4027 [address] RoadDublin [place] [id number] LIPID PANEL (80815) 156 mg/dL Abnormal 0-99 Compr ehensive Internal Medicine; [facility] Work Phone: Comment on above: PATIENT WAS FASTINGP ERFORMED BY: CB [facility] Fxkrlr3107 [address] RoadDublin [place] [id number] LIPID PANEL (62959) 3.1 {ratio} Normal 0.0-3.6 [facility] Internal Medicine; [facility] Work Phone: Comment on above: LDL/HDL Ratio Men Wo men 1/2 Avg.Risk 1.0 1.5 Avg.Risk 3.6 3.2 2X Avg.Risk 6.2 5.0 3X Avg.Risk 8.0 6.1 PATIENT WAS FASTINGP ERFORMED BY: CB [facility] Qlqiam1632 [address] RoadDublin [place] [id number] METABOLIC PANEL, COMPREHENSI VE (70732)Ordered By: Airline Transport Pilot on 04-17-2022 Albumin [Mass/Vol] 4.7 g/dL Normal 4.0-5.0 [facility] Internal Medicine; [facility] Work Phone: Comment on above: PATIENT WAS FASTINGP ERFORMED BY: CB [facility] Vlqbin2420 [address] RoadDublin [place] [id number] Albumin/Globulin [Mass ratio] 2.0 {ratio} Normal 1.2-2.2 [facility]; [facility] Work Phone: Comment on above: PATIENT WAS FASTINGP ERFORMED BY: CB [facility] Juoglk4895 [address] RoadDublin [place] [id number] ALP [Catalytic activity/Vol] 90 U/L Normal 44-121 [facility]; [facility] Work Phone: Comment on above: PATIENT WAS FASTINGP ERFORMED BY: CB [facility] Bfkiye8408 [address] RoadDublin [place] [id number] ALT [Catalytic activity/Vol] 36 U/L Normal 0-44 [facility]; [facility] Work Phone: Comment on above: PATIENT WAS FASTINGP ERFORMED BY: CB [facility] Imokfb4678 [address] RoadDublin [place] [id number] AST [Catalytic activity/Vol] 46 U/L Abnormal 0-40 [facility]; [facility] Work Phone: Comment on above: PATIENT WAS FASTINGP ERFORMED BY: [facility] Pkmoqk4908 [address] RoadDublin [place] [id number] Bilirubin [Mass/Vol] 0.4 mg/dL Normal 0.0-1.2 Comp rehensive Internal Medicine; [facility] Work Phone: Comment on above: PATIENT WAS FASTINGP ERFORMED BY: CB [facility] Ofjtzg3897 [address] RoadDublin [place] [id number] Calcium [Mass/Vol] 9.3 mg/dL Normal 8.7-10.2 [facility] Internal [facility]; [facility] Work Phone: Comment on above: PATIENT WAS FASTINGP ERFORMED BY: [facility] Yzmwxf5881 [address] RoadDublin [place] [id number] Chloride [Moles/Vol] 102 mmol/L Normal 96-106 Comp rehensive Internal Medicine; [facility] Work Phone: Comment on above: PATIENT WAS FASTINGP ERFORMED BY: [facility] Szlmrr9265 [address] RoadDublin [place] [id number] CO2 [Moles/Vol] 24 mmol/L Normal 20-29 Com[facility]hen [facility]; [facility] Work Phone: Comment on above: PATIENT WAS FASTINGP ERFORMED BY: [facility] Tvozsw9621 [address] RoadDublin [place] [id number] Creatinine [Mass/Vol] 0.82 mg/dL Normal 0.76-1.27 [facility]erens[facility]; [facility] Work Phone: Comment on above: PATIENT WAS FASTINGP ERFORMED BY: [facility] Byarlm4622 [address] RoadDublin [place] [id number] GFR/1.73 sq M.predicted among non-blacks MDRD (S/P/Bld) [Vol rate/Area] 119 mL/min/{1.73_m2} Normal Comprehensi ve Internal Medicine; [facility] Work Phone: Comment on above: PATIENT WAS FASTINGP ERFORMED BY: [facility] Lothfc5711 [address] RoadDublin [place] [id number] Globulin (S) [Mass/Vol] 2.4 g/dL Normal 1.5-4.5 [facility] Internal Medicine; [facility] Work Phone: Comment on above: PATIENT WAS FASTINGP ERFORMED BY: BRUCE [facility]enssm [facility] Uscqtm3809 [facility] [id number] Glucose [Mass/Vol] 92 mg/dL Normal 70-99 [facility] Internal Medicine; [facility] Work Phone: Comment on above: PATIENT WAS FASTINGP ERFORMED BY: BRUCE LabHenry [facility]6370 [facility] [id number] Potassium [Moles/Vol] 4.5 mmol/L Normal 3.5-5.2 [facility]erens[facility]; [facility] Work Phone: Comment on above: PATIENT WAS FASTINGP ERFORMED BY: BRUCE [facility] Amftit4854 [facility] [id number] Protein [Mass/Vol] 7.1 g/dL Normal 6.0-8.5 [facility] Internal Medicine; [facility] Work Phone: Comment on above: PATIENT WAS FASTINGP ERFORMED BY: BRUCE [facility] Dadvmr4616 [facility] [id number] Sodium [Moles/Vol] 139 mmol/L Normal 134-144 [facility] Internal Medicine; [facility] Work Phone: Comment on above: PATIENT WAS FASTINGP ERFORMED BY: LabHenry [facility]6370 [facility] [id number] Urea nitrogen [Mass/Vol] 11 mg/dL Normal 6-20 [facility]; [facility] Work Phone: Comment on above: PATIENT WAS FASTINGP ERFORMED BY: BRUCE [facility]ss[facility] Wofpai5609 [facility] [id number] Urea nitrogen/Creatinine [Mass ratio] 13 mg/mg Normal 9-20 [facility]; [facility] Work Phone: Comment on above: PATIENT WAS FASTINGP ERFORMED BY: BRUCE Labcochika Pirevb9638 [address] RoadDublin [place] [id number] MICROALBUMINOrdered By: Syst em Nurse Educator on 04-17-2022 Albumin DL <= 20 mg/L (U) [Mass/Vol] mg/dL Normal [facility]; [facility] Work Phone: Comment on above: PATIENT WAS FASTINGP ERFORMED BY: BRUCE Labcochika Mydjas6486 [address] RoadDublin [place] [id number] Albumin/Creatinine (U) [Mass ratio] <5 Normal 0-29 [facility]; [facility] Work Phone: Comment on above: Normal: 0 - 29 Moder ately increased: 30 - 300 Severely increased: >300 PATIENT WAS FASTINGP ERFORMED BY: BRUCE Labmonique Wdhmzt4856 [address] RoadDublin [place] [id number] Creatinine (U) [Mass/Vol] 59.9 mg/dL Normal [facility]; [facility] Work Phone: Comment on above: PATIENT WAS FASTINGP ERFORMED BY: BRUCE Labmonique SalmonXtjwdy2721 [address] RoadDublin [place] [id number] URINALYSIS, W/ MICRO ([id number]) Ordered By: Airline Transport Pilot on 04-17-2022 Appearance (U) Clear Normal Comprehens charly Internal Medicine; [facility] Work Phone: Comment on above: PATIENT WAS FASTINGP ERFORMED BY: BRUCE Labmonique SalmonBmshll6760 [address] RoadDublin [place] [id number] Bilirubin Ql (U) Negative Normal Comprehe nsive Internal Medicine; [facility] Work Phone: Comment on above: PATIENT WAS FASTINGP ERFORMED BY: BRUCE [facility] Wfobri9585 [address] RoadDublin [place] [id number] Color (U) Yellow Normal [facility]; [facility] Work Phone: Comment on above: PATIENT WAS FASTINGP ERFORMED BY: BRUCE Labmonique Rpbkxd5910 [address] RoadDublin [place] [id number] Glucose Ql (U) Negative Normal Comprehens charly Internal Medicine; [facility] Work Phone: Comment on above: PATIENT WAS FASTINGP ERFORMED BY: BRUCE Salmonlin6370 [address] RoadDublin [place] [id number] Hemoglobin Ql (U) Negative Normal Compreh ensive Internal Medicine; [facility] Work Phone: Comment on above: PATIENT WAS FASTINGP ERFORMED BY: BRUCE Salmonlin6370 [address] RoadDublin [place] [id number] Ketones Ql (U) Negative Normal Comprehens charly Internal Medicine; [facility] Work Phone: Comment on above: PATIENT WAS FASTINGP ERFORMED BY: BRUCE Labmonique SalmonFbqxuy0581 [address] RoadDublin [place] [id number] Leukocyte esterase Test strip Ql (U) Trace Abnormal [facility]; [facility] Work Phone: Comment on above: PATIENT WAS FASTINGP ERFORMED BY: BRUCE Salmonlin6370 [address] RoadDublin [place] [id number] Microscopic observation LM Nom (Urine sed) See below: Normal [facility]; [facility] Work Phone: Comment on above: Microscopic was barb cated and was performed. PATIENT WAS FASTINGP ERFORMED BY: BRUCE Salmonlin6370 [address] RoadDublin [place] [id number] Nitrite Ql (U) Negative Normal Comprehens charly Internal Medicine; [facility] Work Phone: Comment on above: PATIENT WAS FASTINGP ERFORMED BY: BRUCE Salmonlin6370 [address] RoadDublin [place] [id number] pH (U) 7.5 [pH] Normal 5.0-7.5 [facility]; [facility] Work Phone: Comment on above: PATIENT WAS FASTINGP ERFORMED BY: BRUCE Labmonique SalmonVzbnka3792 [address] RoadDublin [place] [id number] Protein Ql (U) Negative Normal Comprehens charly Internal Medicine; [facility] Work Phone: Comment on above: PATIENT WAS FASTINGP ERFORMED BY: BRUCE Salmonlin6370 [address] RoadDublin [place] [id number] Specific gravity (U) [Rel density] 1.012 1 Normal 1.005-1.030 [facility]; [facility] Work Phone: Comment on above: PATIENT WAS FASTINGP ERFORMED BY: BRUCE Moneysoftryanne Khlgqo6770 [facility] [id number] Urobilinogen (U) [Mass/Vol] 0.2 mg/dL Normal 0.2-1.0 [facility]; [facility] Work Phone: Comment on above: PATIENT WAS FASTINGP ERFORMED BY: [employer] Grskbw0921 [facility] [id number] VITAMIN B-12 (CYANOCOBALAMIN ) (62212)Ordered By: Airline Transport Pilot on 04-17-2022 Cobalamin (Vitamin B12) [Mass/Vol] 413 pg/mL Normal 232-1245 [facility]; [facility] Work Phone: Comment on above: PATIENT WAS FASTINGP ERFORMED BY: [employer] Gaztbf8080 [facility] [id number] CALCIFEDIOL (90579)Ordered B y: Airline Transport Pilot on 09-14-2020 25-Hydroxyvitamin D2+25-Hydroxyvitamin D3 [Mass/Vol] 28.5 ng/mL Abnormal 30.0-100.0 [facility]; [facility] Work Phone: Comment on above: Vitamin D deficiency has been defined by the [place] [facility]cine and an Endocrine Society practice guideline as alevel of serum 25-OH vitamin D less than 20 ng/mL (1,2).The Endocrine Society went on to further define vitamin Dinsufficiency as a level between 21 and 29 ng/mL (2).1. IOM ([place] of Medicine). 2010. Dietary reference intakes for calcium and D. [place]: The National Academies Press.2. Sabrina MF, Lara ALDANA, Gilmer JACOME, et al. Evaluation, treatment, and prevention of vitamin D deficiency: an Endocrine Society clinical practice guideline. JCEM. 2010; 96(7):1911-30. PATIENT WAS FASTINGP ERFORMED BY: 3 day Blind[employer] Sffies2230 [facility] [id number] CBC W/AUTO DIFF WBC (51582)O rdered By: Airline Transport Pilot on 09-14-2020 Basophils (Bld) [#/Vol] 0.0 {x10E3/uL} Normal 0.0-0.2 [facility]; [facility] Work Phone: Comment on above: PATIENT WAS FASTINGP ERFORMED BY: LabHenry [facility]6370 [facility] [id number] Basophils (Bld) [#/Vol] 0.0 10*3/uL Normal 0.0-0.2 [facility]; [facility] Work Phone: Comment on above: PATIENT WAS FASTINGP ERFORMED BY: LabYolanda [place]ille 6638070 [facility] [id number] Basophils/100 WBC (Bld) 1 % Normal [facility]; [facility] Work Phone: Comment on above: PATIENT WAS FASTINGP ERFORMED BY: [facility]6370 [facility] [id number] Eosinophils (Bld) [#/Vol] 0.1 {x10E3/uL} Normal 0.0-0.4 [facility]; [facility] Work Phone: Comment on above: PATIENT WAS FASTINGP ERFORMED BY: LabHenry [facility]6370 [facility] [id number] Eosinophils (Bld) [#/Vol] 0.1 10*3/uL Normal 0.0-0.4 [facility]; [facility] Work Phone: Comment on above: PATIENT WAS FASTINGP ERFORMED BY: LabHenry [facility]6370 [facility] [id number] Eosinophils/100 WBC (Bld) 2 % Normal [facility]; [facility] Work Phone: Comment on above: PATIENT WAS FASTINGP ERFORMED BY: LabHenry [facility]6370 [facility] [id number] Erythrocyte distribution width (RBC) [Ratio] 12.4 % Normal 11.6-15.4 [facility]; [facility] Work Phone: Comment on above: PATIENT WAS FASTINGP ERFORMED BY: BRUCE Lazaro[address] [facility]in [place] [id number] Hematocrit (Bld) [Volume fraction] 46.9 % Normal 37.5-51.0 [facility]; [facility] Work Phone: Comment on above: PATIENT WAS FASTINGP ERFORMED BY: BRUCE Lazaro[address] [facility] [id number] Hemoglobin (Bld) [Mass/Vol] 16.4 g/dL Normal 13.0-17.7 [facility]; [facility] Work Phone: Comment on above: PATIENT WAS FASTINGP ERFORMED BY: BRUCE Lazaro[address] [facility] [id number] Immature granulocytes (Bld) [#/Vol] 0.0 {x10E3/uL} Normal 0.0-0.1 [facility]; [facility] Work Phone: Comment on above: PATIENT WAS FASTINGP ERFORMED BY: BRUCE Lazaro[address] [facility] [id number] Immature granulocytes (Bld) [#/Vol] 0.0 10*3/uL Normal 0.0-0.1 [facility]; [facility] Work Phone: Comment on above: PATIENT WAS FASTINGP ERFORMED BY: BRUCE Fish Akgqsq[address] [facility]in [place] [id number] Immature granulocytes/100 WBC (Bld) 0 % Normal [facility]; [facility] Work Phone: Comment on above: PATIENT WAS FASTINGP ERFORMED BY: BRUCE LabCochika SalmonUybzqg06[address] [facility]bl[facility] [place] [id number] Lymphocytes (Bld) [#/Vol] 1.7 {x10E3/uL} Normal 0.7-3.1 [facility]; [facility] Work Phone: Comment on above: PATIENT WAS FASTINGP ERFORMED BY: BRUCE LabCo Jipdpi1592 [facility] [id number] Lymphocytes (Bld) [#/Vol] 1.7 10*3/uL Normal 0.7-3.1 [facility] Internal Medicine; [facility] Work Phone: Comment on above: PATIENT WAS FASTINGP ERFORMED BY: BRUCE NguyenPemiscot Memorial [facility] Jedkpd5130 [facility] [id number] Lymphocytes/100 WBC (Bld) 38 % Normal [facility]; [facility] Work Phone: Comment on above: PATIENT WAS FASTINGP ERFORMED BY: [facility] Psfgxb0637 [facility] [id number] MCH (RBC) [Entitic mass] 29.9 pg Normal 26.6-33.0 [facility]; [facility] Work Phone: Comment on above: PATIENT WAS FASTINGP ERFORMED BY: [facility] Rlprmw9336 [facility] [id number] MCHC (RBC) [Mass/Vol] 35.0 g/dL Normal 31.5-35.7 [facility] prehensive Internal Medicine; [facility] Work Phone: Comment on above: PATIENT WAS FASTINGP ERFORMED BY: BRUCE NguyenPemiscot Memorial [facility] Systems Erwxbe5825 [facility] [id number] MCV (RBC) [Entitic vol] 86 fL Normal 79-97 [facility]; [facility] Work Phone: Comment on above: PATIENT WAS FASTINGP ERFORMED BY: [facility]6370 [facility] [id number] Monocytes (Bld) [#/Vol] 0.5 {x10E3/uL} Normal 0.1-0.9 [facility]; [facility] Work Phone: Comment on above: PATIENT WAS FASTINGP ERFORMED BY: LabHenry [facility]6370 [facility] [id number] Monocytes (Bld) [#/Vol] 0.5 10*3/uL Normal 0.1-0.9 [facility]; [facility] Work Phone: Comment on above: PATIENT WAS FASTINGP ERFORMED BY: [facility] Xqkxnx5575 [address] RoadDublin [place] [id number] Monocytes/100 WBC (Bld) 10 % Normal [facility]; [facility] Work Phone: Comment on above: PATIENT WAS FASTINGP ERFORMED BY: [facility] Mxzrlx6587 [address] RoadDublin [place] [id number] Neutrophils (Bld) [#/Vol] 2.1 {x10E3/uL} Normal 1.4-7.0 [facility]; [facility] Work Phone: Comment on above: PATIENT WAS FASTINGP ERFORMED BY: [facility] Rocnma8966 [address] RoadDublin [place] [id number] Neutrophils (Bld) [#/Vol] 2.1 10*3/uL Normal 1.4-7.0 [facility]; [facility] Work Phone: Comment on above: PATIENT WAS FASTINGP ERFORMED BY: [facility] Eaufkv7634 [address] RoadDublin [place] [id number] Neutrophils/100 WBC (Bld) 49 % Normal [facility]; [facility] Work Phone: Comment on above: PATIENT WAS FASTINGP ERFORMED BY: [facility] Tzqgtr3323 [address] RoadDublin [place] [id number] Platelets (Bld) [#/Vol] 241 {x10E3/uL} Normal 150-450 [facility]; [facility] Work Phone: Comment on above: PATIENT WAS FASTINGP ERFORMED BY: [facility] Ajjceh0717 [address] RoadDublin [place] [id number] Platelets (Bld) [#/Vol] 241 10*3/uL Normal 150-450 [facility]; [facility] Work Phone: Comment on above: PATIENT WAS FASTINGP ERFORMED BY: [facility] Gnwzox4737 [address] RoadDublin [place] [id number] RBC (Bld) [#/Vol] 5.48 {x10E6/uL} Normal 4.14-5.80 Co mprehensive Internal Medicine; [facility] Work Phone: Comment on above: PATIENT WAS FASTINGP ERFORMED BY: BRUCE LabMonique Lazaro6[address] Roadblin [place] [id number] RBC (Bld) [#/Vol] 5.48 10*6/uL Normal 4.14-5.80 [facility]; [facility] Work Phone: Comment on above: PATIENT WAS FASTINGP ERFORMED BY: BRUCE LabMonique Lazaro6[address] Roadbl[address] [place] [id number] WBC (Bld) [#/Vol] 4.4 {x10E3/uL} Normal 3.4-10.8 [facility] Internal Medicine; [facility] Work Phone: Comment on above: PATIENT WAS FASTINGP ERFORMED BY: BRUCE LabMonique Lazaro[address] [place] [id number] WBC (Bld) [#/Vol] 4.4 10*3/uL Normal 3.4-10.8 [facility] Internal Medicine; [facility] Work Phone: Comment on above: PATIENT WAS FASTINGP ERFORMED BY: BRUCE LabMonique Lazaro[address] [facility]in [place] [id number] LIPID PANEL ([id number])Ordered B y: Airline Transport Pilot on 09-14-2020 Cholesterol [Mass/Vol] 248 mg/dL Abnormal 100-199 [facility] Internal Medicine; [facility] Work Phone: Comment on above: PATIENT WAS FASTINGP ERFORMED BY: BRUCE LabRyanne Kafmpl[address] [facility]in [place] [id number] Cholesterol in HDL [Mass/Vol] 49 mg/dL Normal [facility]; [facility] Work Phone: Comment on above: PATIENT WAS FASTINGP ERFORMED BY: BRUCE LabMonique SalmonZoaymx[address] [facility]bl[facility] [place] [id number] Cholesterol in LDL/Cholesterol in HDL [Mass ratio] 3.7 {ratio} Abnormal 0.0-3.6 [facility]; [facility] Work Phone: Comment on above: LDL/HDL Ratio Men Wo men 1/2 Avg.Risk 1.0 1.5 Avg.Risk 3.6 3.2 2X Avg.Risk 6.2 5.0 3X Avg.Risk 8.0 6.1 PATIENT WAS FASTINGP ERFORMED BY: BRUCE LabCochika Wdtbfi[address] RoadDublin [place] [id number] Triglyceride [Mass/Vol] 90 mg/dL Normal 0-149 [facility]; [facility] Work Phone: Comment on above: PATIENT WAS FASTINGP ERFORMED BY: BRUCE [facility] Wjyywo8841 [address] RoadDublin [place] [id number] LIPID PANEL (19757) 16 mg/dL Normal 5-40 [facility]; [facility] Work Phone: Comment on above: PATIENT WAS FASTINGP ERFORMED BY: BRUCE [facility] Xmhbme6397 [address] RoadDuin [place] [id number] LIPID PANEL (65092) 183 mg/dL Abnormal 0-99 [facility]; [facility] Work Phone: Comment on above: PATIENT WAS FASTINGP ERFORMED BY: BRUCE [facility] Jifvlg4651 [address] RoadDuin [place] [id number] LIPID PANEL (05226) 3.7 {ratio} Abnormal 0.0-3.6 [facility]; [facility] Work Phone: Comment on above: LDL/HDL Ratio Men Wo men 1/2 Avg.Risk 1.0 1.5 Avg.Risk 3.6 3.2 2X Avg.Risk 6.2 5.0 3X Avg.Risk 8.0 6.1 PATIENT WAS FASTINGP ERFORMED BY: BRUCE [facility] Drtutv3518 [address] RoadDublin [place] [id number] METABOLIC PANEL, COMPREHENSI VE (27034)Ordered By: Airline Transport Pilot on 09-14-2020 Albumin [Mass/Vol] 4.6 g/dL Normal 4.0-5.0 [facility]; [facility] Work Phone: Comment on above: PATIENT WAS FASTINGP ERFORMED BY: CB [facility] Hhlfbc4782 [address] RoadDublin [place] [id number] Albumin/Globulin [Mass ratio] 1.8 {ratio} Normal 1.2-2.2 [facility]; [facility] Work Phone: Comment on above: PATIENT WAS FASTINGP ERFORMED BY: BRUCE Lazaro6370 [address] RoadDublin [place] [id number] ALP [Catalytic activity/Vol] 89 [iU]/L Normal 39-117 [facility]; [facility] Work Phone: Comment on above: PATIENT WAS FASTINGP ERFORMED BY: BRUCE Salmonlin6370 [address] RoadDublin [place] [id number] ALP [Catalytic activity/Vol] 89 U/L Normal 39-117 [facility]; [facility] Work Phone: Comment on above: PATIENT WAS FASTINGP ERFORMED BY: BRUCE Kandice Lazaro[address] RoadDublin [place] [id number] ALT [Catalytic activity/Vol] 15 [iU]/L Normal 0-44 [facility]; [facility] Work Phone: Comment on above: PATIENT WAS FASTINGP ERFORMED BY: BRUCE Kandice Salmonlin[address] RoadDublin [place] [id number] ALT [Catalytic activity/Vol] 15 U/L Normal 0-44 [facility]; [facility] Work Phone: Comment on above: PATIENT WAS FASTINGP ERFORMED BY: BRUCE Salmonlin[address] RoadDublin [place] [id number] AST [Catalytic activity/Vol] 22 [iU]/L Normal 0-40 [facility]; [facility] Work Phone: Comment on above: PATIENT WAS FASTINGP ERFORMED BY: BRUCE Lab[facility] Ljcsyc1276 [address] RoadDublin [place] [id number] AST [Catalytic activity/Vol] 22 U/L Normal 0-40 [facility]; [facility] Work Phone: Comment on above: PATIENT WAS FASTINGP ERFORMED BY: BRUCE [facility] Yywndg8729 [address] RoadDublin [place] [id number] Bilirubin [Mass/Vol] 0.5 mg/dL Normal 0.0-1.2 Comp rehensive Internal Medicine; [facility] Work Phone: Comment on above: PATIENT WAS FASTINGP ERFORMED BY: CB [facility] Xvgpfc8412 [address] RoadDublin [place] [id number] Calcium [Mass/Vol] 9.3 mg/dL Normal 8.7-10.2 [facility]; [facility] Work Phone: Comment on above: PATIENT WAS FASTINGP ERFORMED BY: CB [facility] Apwfkp4212 [address] RoadDublin [place] [id number] Chloride [Moles/Vol] 104 mmol/L Normal 96-106 [facility] rehensive Internal Medicine; [facility] Work Phone: Comment on above: PATIENT WAS FASTINGP ERFORMED BY: [facility] Mytpaa6193 [address] RoadDublin [place] [id number] CO2 [Moles/Vol] 23 mmol/L Normal 20-29 [facility] Internal Medicine; [facility] Work Phone: Comment on above: PATIENT WAS FASTINGP ERFORMED BY: [facility] Dqiemo3060 [address] RoadDublin [place] [id number] Creatinine [Mass/Vol] 0.89 mg/dL Normal 0.76-1.27 [facility]; [facility] Work Phone: Comment on above: PATIENT WAS FASTINGP ERFORMED BY: [facility] Wgilov5026 [address] RoadDublin [place] [id number] GFR/1.73 sq M predicted among blacks CKD-EPI (S/P/Bld) [Vol rate/Area] 131 mL/min/1.73 Normal [facility]; [facility] Work Phone: Comment on above: PATIENT WAS FASTINGP ERFORMED BY: CB [facility] Pzfxhf0350 [address] RoadDublin [place] [id number] GFR/1.73 sq M predicted among non-blacks CKD-EPI (S/P/Bld) [Vol rate/Area] 113 mL/min/1.73 Normal [facility]; [facility] Work Phone: Comment on above: PATIENT WAS FASTINGP ERFORMED BY: BRUCE [facility] Wzzfxb0389 [address] RoadDublin [place] [id number] Globulin (S) [Mass/Vol] 2.5 g/dL Normal 1.5-4.5 [facility]; [facility] Work Phone: Comment on above: PATIENT WAS FASTINGP ERFORMED BY: CB [facility] Nfomho7158 [address] RoadDublin [place] [id number] Glucose [Mass/Vol] 95 mg/dL Normal 65-99 [facility]; [facility] Work Phone: Comment on above: PATIENT WAS FASTINGP ERFORMED BY: CB [facility] Hheutq3391 [address] RoadDublin [place] [id number] Potassium [Moles/Vol] 4.6 mmol/L Normal 3.5-5.2 [facility] prehensive Internal Medicine; [facility] Work Phone: Comment on above: PATIENT WAS FASTINGP ERFORMED BY: BRUCE [facility] Kexqsa0144 [address] RoadDublin [place] [id number] Protein [Mass/Vol] 7.1 g/dL Normal 6.0-8.5 [facility]; [facility] Work Phone: Comment on above: PATIENT WAS FASTINGP ERFORMED BY: [facility] Mswvxz3146 [address] RoadDublin [place] [id number] Sodium [Moles/Vol] 141 mmol/L Normal 134-144 [facility]; [facility] Work Phone: Comment on above: PATIENT WAS FASTINGP ERFORMED BY: CB [facility] Tjgpwd0516 [address] RoadDublin [place] [id number] Urea nitrogen [Mass/Vol] 12 mg/dL Normal 6-20 [facility]; [facility] Work Phone: Comment on above: PATIENT WAS FASTINGP ERFORMED BY: CB [facility] Nrbqag9248 [address] RoadDublin [place] [id number] Urea nitrogen/Creatinine [Mass ratio] 13 mg/mg Normal 9-20 [facility]; [facility] Work Phone: Comment on above: PATIENT WAS FASTINGP ERFORMED BY: BRUCE Kandice Lazaro6[address] RoadDublin [place] [id number] MICROALBUMINOrdered By: Syst em Nurse Educator on 09-14-2020 Albumin DL <= 20 mg/L (U) [Mass/Vol] mg/dL Normal [facility]; [facility] Work Phone: Comment on above: Verified by repeat analysis PATIENT WAS FASTINGP ERFORMED BY: BRUCE Kandice Gdptxe2522 [address] RoadDublin [place] [id number] Albumin DL <= 20 mg/L (U) [Mass/Vol] mg/dL Normal [facility]; [facility] Work Phone: Comment on above: Verified by repeat analysis PATIENT WAS FASTINGP ERFORMED BY: BRUCE Corneliuschika Xjevwc4918 [address] RoadDublin [place] [id number] Albumin/Creatinine (U) [Mass ratio] <5 Normal 0-29 [facility]; [facility] Work Phone: Comment on above: Normal: 0 - 29 Moder ately increased: 30 - 300 Severely increased: >300 PATIENT WAS FASTINGP ERFORMED BY: BRUCE Salmonlin6370 [address] RoadDublin [place] [id number] Creatinine (U) [Mass/Vol] 60.4 mg/dL Normal [facility]; [facility] Work Phone: Comment on above: PATIENT WAS FASTINGP ERFORMED BY: BRUCE LabRyannerp Nbflrp7994 [address] RoadDublin [place] [id number] VITAMIN B-12 (CYANOCOBALAMIN ) (66055)Ordered By: Airline Transport Pilot on 09-14-2020 Cobalamin (Vitamin B12) [Mass/Vol] 447 pg/mL Normal 232-1245 [facility]; [facility] Work Phone: Comment on above: PATIENT WAS FASTINGP ERFORMED BY: BRUCE [facility] Hagajc6585 [address] RoadDublin [place] [id number] CALCIFEDIOL (89579)Ordered B y: Airline Transport Pilot on 05-12-2020 25-Hydroxyvitamin D2+25-Hydroxyvitamin D3 [Mass/Vol] 28.0 ng/mL Abnormal 30.0-100.0 [facility] Work Phone: Comment on above: Vitamin D deficiency has been defined by the [place] of[place]icine and an Endocrine Society practice guideline as alevel of serum 25-OH vitamin D less than 20 ng/mL (1,2).The Endocrine Society went on to further define vitamin Dinsufficiency as a level between 21 and 29 ng/mL (2).1. IOM ([place] of Medicine). 2010. Dietary reference intakes for calcium and D. [place]: The National Academies Press.2. Sabrina MF, Lara ALDANA, Gilmer JACOME, et al. Evaluation, treatment, and prevention of vitamin D deficiency: an Endocrine Society clinical practice guideline. JCEM. 2010; 96(7):1911-30. PATIENT NOT FASTINGP ERFORMED BY: OBOOK LabMeijob[address] [facility] [place] [id number] CBC, Platelets & Auto Diff ( 72942)Ordered By: Airline Transport Pilot on 05-12-2020 Basophils (Bld) [#/Vol] 0.0 {x10E3/uL} Normal 0.0-0.2 [facility] Work Phone: Comment on above: PATIENT NOT FASTINGP ERFORMED BY: OBOOK [facility] Bipbsv[address] Gamzoo MediaDublin [place] [id number] Basophils (Bld) [#/Vol] 0.0 10*3/uL Normal 0.0-0.2 [facility]; [facility] Work Phone: Comment on above: PATIENT NOT FASTINGP ERFORMED BY: OBOOK [facility] Bmoxpq8519 [address] RoadDublin [place] [id number] Basophils/100 WBC (Bld) 1 % Normal [facility] Work Phone: Comment on above: PATIENT NOT FASTINGP ERFORMED BY: OBOOK [facility] Rogmii[address] Gamzoo MediaDublin [place] [id number] Eosinophils (Bld) [#/Vol] 0.0 {x10E3/uL} Normal 0.0-0.4 [facility] Work Phone: Comment on above: PATIENT NOT FASTINGP ERFORMED BY: BRUCE [facility] Gafcir5634 [address] RoadDublin [place] [id number] Eosinophils (Bld) [#/Vol] 0.0 10*3/uL Normal 0.0-0.4 [facility]; [facility] Work Phone: Comment on above: PATIENT NOT FASTINGP ERFORMED BY: CB [facility] Wjnaqx6341 [address] RoadDublin [place] [id number] Eosinophils/100 WBC (Bld) 0 % Normal [facility] Work Phone: Comment on above: PATIENT NOT FASTINGP ERFORMED BY: BRUCE [facility] Wehsmu6450 [address] RoadD[place] [id number] Erythrocyte distribution width (RBC) [Ratio] 12.2 % Normal 11.6-15.4 [facility] Work Phone: Comment on above: PATIENT NOT FASTINGP ERFORMED BY: CB [facility] Gurdtj3159 [address] RoadDuin [place] [id number] Hematocrit (Bld) [Volume fraction] 48.1 % Normal 37.5-51.0 [facility] Work Phone: Comment on above: PATIENT NOT FASTINGP ERFORMED BY: CB [facility] Wvgcsm0770 [address] RoadDublin [place] [id number] Hemoglobin (Bld) [Mass/Vol] 16.9 g/dL Normal 13.0-17.7 [facility] Work Phone: Comment on above: PATIENT NOT FASTINGP ERFORMED BY: CB [facility] Ayjsoq4533 [address] RoadDublin [place] [id number] Immature granulocytes (Bld) [#/Vol] 0.0 {x10E3/uL} Normal 0.0-0.1 [facility] Work Phone: Comment on above: PATIENT NOT FASTINGP ERFORMED BY: CB [facility] Khpdti6544 [address] RoadDublin [place] [id number] Immature granulocytes (Bld) [#/Vol] 0.0 10*3/uL Normal 0.0-0.1 [facility]; [facility] Work Phone: Comment on above: PATIENT NOT FASTINGP ERFORMED BY: BRUCE LabC[facility] LazaroSegpdf[address] [facility]in [place] [id number] Immature granulocytes/100 WBC (Bld) 0 % Normal [facility] Work Phone: Comment on above: PATIENT NOT FASTINGP ERFORMED BY: BRUCE [facility] Kxhimg[address] [facility] [id number] Lymphocytes (Bld) [#/Vol] 1.1 {x10E3/uL} Normal 0.7-3.1 [facility] Work Phone: Comment on above: PATIENT NOT FASTINGP ERFORMED BY: BRUCE [facility] Dlserf[address] [facility] [id number] Lymphocytes (Bld) [#/Vol] 1.1 10*3/uL Normal 0.7-3.1 [facility]; [facility] Work Phone: Comment on above: PATIENT NOT FASTINGP ERFORMED BY: [facility] Sfjqtg2988 [facility] [id number] Lymphocytes/100 WBC (Bld) 33 % Normal [facility] Internal Medicine Work Phone: Comment on above: PATIENT NOT FASTINGP ERFORMED BY: BRUCE [facility] Cbtjgm7298 [facility] [id number] MCH (RBC) [Entitic mass] 30.4 pg Normal 26.6-33.0 [facility] Internal Medicine Work Phone: Comment on above: PATIENT NOT FASTINGP ERFORMED BY: LabCoMountainside HospitalFupcpf[address] [facility] [id number] MCHC (RBC) [Mass/Vol] 35.1 g/dL Normal 31.5-35.7 [facility] Internal Medicine Work Phone: Comment on above: PATIENT NOT FASTINGP ERFORMED BY: LabCoMountainside HospitalTscjmf[address] [facility] [id number] MCV (RBC) [Entitic vol] 87 fL Normal 79-97 [facility] Work Phone: Comment on above: PATIENT NOT FASTINGP ERFORMED BY: CB [facility] Wkphkg9065 [address] RoadDublin [place] [id number] Monocytes (Bld) [#/Vol] 0.7 {x10E3/uL} Normal 0.1-0.9 [facility] Work Phone: Comment on above: PATIENT NOT FASTINGP ERFORMED BY: CB [facility] Hkqyic2037 [address] RoadDublin [place] [id number] Monocytes (Bld) [#/Vol] 0.7 10*3/uL Normal 0.1-0.9 [facility]; [facility] Work Phone: Comment on above: PATIENT NOT FASTINGP ERFORMED BY: CB [facility] Mqppud2545 [address] RoadDublin [place] [id number] Monocytes/100 WBC (Bld) 22 % Normal [facility] Work Phone: Comment on above: PATIENT NOT FASTINGP ERFORMED BY: CB [facility] Rmucph2406 [address] RoadDublin [place] [id number] Morphology Andrae (Bld) [Interp] Note: Normal [facility] Work Phone: Comment on above: Verified by microsco pic examination. PATIENT NOT FASTINGP ERFORMED BY: CB [facility] Ubrnrd2387 [address] RoadDublin [place] [id number] Neutrophils (Bld) [#/Vol] 1.5 {x10E3/uL} Normal 1.4-7.0 [facility] Work Phone: Comment on above: PATIENT NOT FASTINGP ERFORMED BY: CB [facility] Urleth4896 [address] RoadDublin [place] [id number] Neutrophils (Bld) [#/Vol] 1.5 10*3/uL Normal 1.4-7.0 [facility]; [facility] Work Phone: Comment on above: PATIENT NOT FASTINGP ERFORMED BY: CB [facility] Gqlavg7929 [address] RoadDublin [place] [id number] Neutrophils/100 WBC (Bld) 44 % Normal [facility] Work Phone: Comment on above: PATIENT NOT FASTINGP ERFORMED BY: CB [facility] Xxtvjj9708 [address] RoadDublin [place] [id number] Platelets (Bld) [#/Vol] 249 {x10E3/uL} Normal 150-450 [facility] Work Phone: Comment on above: Platelets appear clu mped. PATIENT NOT FASTINGP ERFORMED BY: CB [facility] Xxkatw9329 [address] RoadDublin [place] [id number] Platelets (Bld) [#/Vol] 249 10*3/uL Normal 150-450 [facility]; [facility] Work Phone: Comment on above: Platelets appear clu mped. PATIENT NOT FASTINGP ERFORMED BY: CB [facility] Yfvboo7609 [address] RoadDublin [place] [id number] RBC (Bld) [#/Vol] 5.56 {x10E6/uL} Normal 4.14-5.80 [facility] Internal Medicine Work Phone: Comment on above: PATIENT NOT FASTINGP ERFORMED BY: CB [facility] Tvgmug5317 [address] RoadDublin [place] [id number] RBC (Bld) [#/Vol] 5.56 10*6/uL Normal 4.14-5.80 [facility] Internal Medicine; [facility] Work Phone: Comment on above: PATIENT NOT FASTINGP ERFORMED BY: CB [facility] Hecxqo9777 [address] RoadDublin [place] [id number] WBC (Bld) [#/Vol] 3.4 {x10E3/uL} Normal 3.4-10.8 [facility] Internal Medicine Work Phone: Comment on above: PATIENT NOT FASTINGP ERFORMED BY: CB [facility] Ylbhfi0716 [address] RoadDublin [place] [id number] WBC (Bld) [#/Vol] 3.4 10*3/uL Normal 3.4-10.8 [facility] Internal Medicine; [facility] Work Phone: Comment on above: PATIENT NOT FASTINGP ERFORMED BY: CB [facility] Cwcigo3369 [address] RoadDublin [place] [id number] Metabolic Panel, Comprehensi chivo (03574)Ordered By: Airline Transport Pilot on 05-12-2020 Albumin [Mass/Vol] 4.7 g/dL Normal 4.0-5.0 [facility] Internal Medicine Work Phone: Comment on above: PATIENT NOT FASTINGP ERFORMED BY: CB [facility] Ynczjt7970 [address] RoadDublin [place] [id number] Albumin/Globulin [Mass ratio] 1.7 {ratio} Normal 1.2-2.2 [facility] Work Phone: Comment on above: PATIENT NOT FASTINGP ERFORMED BY: CB [facility] Xpzglr1945 [address] RoadDublin [place] [id number] ALP [Catalytic activity/Vol] 104 [iU]/L Normal 39-117 [facility] Work Phone: Comment on above: PATIENT NOT FASTINGP ERFORMED BY: CB [facility] Fmjwkm9536 [address] RoadDublin [place] [id number] ALP [Catalytic activity/Vol] 104 U/L Normal 39-117 [facility]; [facility] Work Phone: Comment on above: PATIENT NOT FASTINGP ERFORMED BY: CB [facility] Uqiuod9832 [address] RoadDublin [place] [id number] ALT [Catalytic activity/Vol] 31 [iU]/L Normal 0-44 [facility] Work Phone: Comment on above: PATIENT NOT FASTINGP ERFORMED BY: CB [facility] Wopdmr1245 [address] RoadDublin [place] [id number] ALT [Catalytic activity/Vol] 31 U/L Normal 0-44 [facility]; [facility] Work Phone: Comment on above: PATIENT NOT FASTINGP ERFORMED BY: CB [facility] Tptckd1677 [address] RoadDublin [place] [id number] AST [Catalytic activity/Vol] 39 [iU]/L Normal 0-40 [facility] Work Phone: Comment on above: PATIENT NOT FASTINGP ERFORMED BY: CB [facility] Fmdqko3661 [address] RoadDublin [place] [id number] AST [Catalytic activity/Vol] 39 U/L Normal 0-40 [facility]; [facility] Work Phone: Comment on above: PATIENT NOT FASTINGP ERFORMED BY: CB [facility] Kfsjjf6988 [address] RoadDublin [place] [id number] Bilirubin [Mass/Vol] 0.6 mg/dL Normal 0.0-1.2 Comp rehensive Internal Medicine Work Phone: Comment on above: PATIENT NOT FASTINGP ERFORMED BY: CB [facility] Wdbvdx4143 [address] RoadDublin [place] [id number] Calcium [Mass/Vol] 9.9 mg/dL Normal 8.7-10.2 [facility] Internal Medicine Work Phone: Comment on above: PATIENT NOT FASTINGP ERFORMED BY: CB [facility] Ckadak1144 [address] RoadDublin [place] [id number] Chloride [Moles/Vol] 102 mmol/L Normal 96-106 [facility] Work Phone: Comment on above: PATIENT NOT FASTINGP ERFORMED BY: CB [facility] Srihag1830 [address] RoadDublin [place] [id number] CO2 [Moles/Vol] 22 mmol/L Normal 20-29 [facility] Internal Medicine Work Phone: Comment on above: PATIENT NOT FASTINGP ERFORMED BY: CB [facility] Ajfcih4832 [address] RoadDublin [place] [id number] Creatinine [Mass/Vol] 0.99 mg/dL Normal 0.76-1.27 [facility] Work Phone: Comment on above: PATIENT NOT FASTINGP ERFORMED BY: CB [facility] Ssuyid9406 [address] RoadDublin [place] [id number] GFR/1.73 sq M predicted among blacks CKD-EPI (S/P/Bld) [Vol rate/Area] 117 mL/min/1.73 Normal [facility] Work Phone: Comment on above: PATIENT NOT FASTINGP ERFORMED BY: CB [facility] Mrzklx4581 [address] RoadDublin [place] [id number] GFR/1.73 sq M predicted among non-blacks CKD-EPI (S/P/Bld) [Vol rate/Area] 101 mL/min/1.73 Normal [facility] Internal Medicine Work Phone: Comment on above: PATIENT NOT FASTINGP ERFORMED BY: CB [facility] Coohfq0722 [address] RoadDublin [place] [id number] Globulin (S) [Mass/Vol] 2.7 g/dL Normal 1.5-4.5 [facility] Internal Medicine Work Phone: Comment on above: PATIENT NOT FASTINGP ERFORMED BY: CB [facility] Hanxad8576 [address] RoadDublin [place] [id number] Glucose [Mass/Vol] 83 mg/dL Normal 65-99 [facility] Internal Medicine Work Phone: Comment on above: PATIENT NOT FASTINGP ERFORMED BY: CB [facility] Xinjqg3029 [address] RoadDublin [place] [id number] Potassium [Moles/Vol] 4.2 mmol/L Normal 3.5-5.2 [facility] Internal Medicine Work Phone: Comment on above: PATIENT NOT FASTINGP ERFORMED BY: CB [facility] Kyzutj3660 [address] RoadDublin [place] [id number] Protein [Mass/Vol] 7.4 g/dL Normal 6.0-8.5 [facility] Internal Medicine Work Phone: Comment on above: PATIENT NOT FASTINGP ERFORMED BY: CB [facility] Xjvehc0898 [address] RoadDublin [place] [id number] Sodium [Moles/Vol] 139 mmol/L Normal 134-144 [facility] Internal Medicine Work Phone: Comment on above: PATIENT NOT FASTINGP ERFORMED BY: CB [facility] Gbxuvn3767 [address] RoadDublin [place] [id number] Urea nitrogen [Mass/Vol] 12 mg/dL Normal 6-20 [facility] Internal Medicine Work Phone: Comment on above: PATIENT NOT FASTINGP ERFORMED BY: CB [facility] Mizmsx8801 [address] RoadDublin [place] [id number] Urea nitrogen/Creatinine [Mass ratio] 12 mg/mg Normal 9-20 [facility] Work Phone: Comment on above: PATIENT NOT FASTINGP ERFORMED BY: CB [facility] Ixrimw4844 [address] RoadDublin [place] [id number] TSH ([id number])Ordered By: Tagbrande m Nurse Educator on 05-12-2020 TSH Qn 1.070 {uIU/mL} Normal 0.450-4.500 [facility] Internal [facility] Work Phone: Comment on above: PATIENT NOT FASTINGP ERFORMED BY: CB [facility] Fardxb3583 [address] RoadDublin [place] [id number] VITAMIN B12 AND FOLATES (826 07)Ordered By: Airline Transport Pilot on 05-12-2020 Cobalamin (Vitamin B12) [Mass/Vol] 463 pg/mL Normal 232-1245 [facility] Work Phone: Comment on above: PATIENT NOT FASTINGP ERFORMED BY: CB [facility] Zuvnlq0417 [address] RoadDublin [place] [id number] Folate [Mass/Vol] 13.0 ng/mL Normal Compreh ensive Internal Medicine Work Phone: Comment on above: A serum folate marcelino ntration of less than 3.1 ng/mL isconsidered to represent clinical deficiency. PATIENT NOT FASTINGP ERFORMED BY: OBOOK [facility] Fdpfzo4552 [address] RoadDublin [place] [id number] Rapid Strep Test, Office (05 388)Ordered By: Magno Knox on 11-18-2017 S. pyogenes Ag EIA Ql (Throat) Negative Normal [facility]; [facility] Work Phone: Rapid Strep Test, Office (03 282)Ordered By: Magno Layne on 11-18-2017 S. pyogenes Ag IA Ql (Unsp spec) Negative Normal [facility] Work Phone: THROAT CULTURE (13101)on Bacteria identified Respiratory culture Nom (Unsp spec) Final report Normal [facility] Work Phone: Comment on above: PATIENT NOT FASTINGP ERFORMED BY: BRUCE [facility] Bkqsxf6193 [address] RoadDublin [place] [id number] Information: SRC:TH Bacteria identified Respiratory culture Nom (Unsp spec) RRF Normal [facility] Work Phone: Comment on above: Routine respiratory idalia PATIENT NOT FASTINGP ERFORMED BY: BRUCE [facility] Xjwvkp6945 [address] RoadDublin [place] [id number] Information: SRC:TH LIPID PANEL (61884)on 2017 Cholesterol in HDL mass conc 38 mg/dL Abnormal [facility] Work Phone: Comment on above: PATIENT WAS FASTINGP ERFORMED BY: BRUCE LabCochika Jngjln0314 [address] RoadDublin [place] [id number] Cholesterol in VLDL mass conc VLDLCH Normal 5-40 [facility] Work Phone: Comment on above: The calculation for the VLDL cholesterol is not valid whentriglyceride level is >400 mg/dL.Triglyceride result indicated is too high for an accurate LDLcholesterol estimation. PATIENT WAS FASTINGP ERFORMED BY: BRUCE [facility] Uklawa6071 [address]oddard RoadDublin [place] [id number] Cholesterol mass conc 223 mg/dL Abnormal 100-199 Com prehensive Internal Medicine Work Phone: Comment on above: PATIENT WAS FASTINGP ERFORMED BY: BRUCE [facility] Pyaaml4751 [address] RoadDublin [place] [id number] Triglyceride mass conc 434 mg/dL Abnormal 0-149 Co cox northensive Internal Medicine Work Phone: Comment on above: PATIENT WAS FASTINGP ERFORMED BY: BRUCE [facility] Yckzsq2178 [address]oddard RoadDublin [place] [id number] VITAMIN B-12 (CYANOCOBALAMIN ) (45919)on 10-09-2017 Cobalamin (Vitamin B12) mass conc 454 pg/mL Normal 232-1245 [facility] Work Phone: Comment on above: PATIENT WAS FASTINGP ERFORMED BY: CB [facility] Uzlqjt9719 [address]ard RoadDublin [place] [id number] Influenza A&B Viral Culture (46503)on 03-25-2017 FLUV identified Org specific cx Nom (Unsp spec) FLUABN Normal [facility] Work Phone: Comment on above: Negative:No Influenz a A or B detected. PATIENT NOT FASTINGP ERFORMED BY: BRUCE 3 day Blinds Nwafqm[address] [facility] MediaAt[facility] Health Hunters[facility] [id number] Rapid Flu (61903 x 2)Ordered By: Neda Baron on 03-25-2017 FLUAV Ag IA Ql (Throat) neg a/b Normal [facility] Work Phone: Rapid Strep Test, Office ([phone])Ordered By: Neda Baron on 03-25-2017 S. pyogenes Ag EIA Ql (Throat) Negative Normal [facility]; [facility] Work Phone: S. pyogenes Ag IA Ql (Unsp spec) Negative Normal [facility] Work Phone: THROAT CULTURE (31215)on Bacteria identified Respiratory culture Nom (Unsp spec) Final report Abnormal [facility] Work Phone: Comment on above: PATIENT NOT FASTINGP ERFORMED BY: BRUCE 3 day Blinds Xumii [facility] [id number] Information: SRC:NL SRC:TH Bacteria identified Respiratory culture Nom (Unsp spec) BETAGC Abnormal [facility] Work Phone: Comment on above: Beta hemolytic Strep tococcus, group CLight growthPenicillin and ampicillin are drugs of choice for treatment ofbeta-hemolytic streptococcal infections. Susceptibility testing ofpenicillins and other beta-lactam agents approved by the FDA fortreatment of beta-hemolytic streptococcal infections need not beperformed routinely because nonsusceptible isolates are extremelyrare in any beta-hemolytic streptococcus and have not been reportedfor Streptococcus pyogenes (group A). (CLSI 2010) PATIENT NOT FASTINGP ERFORMED BY: 3 day Blinds Ztlpmi4926 [facility] [id number] Information: SRC:NL SRC:TH CBC & PLATELETS (AUTO) (8502 7)on 02-21-2017 Erythrocyte distribution width Auto Ratio (RBC) 13.0 % Normal 12.3-15.4 [facility] Work Phone: Erythrocyte distribution width Ratio (RBC) 13.0 % Normal 12.3-15.4 [facility] Work Phone: Comment on above: PATIENT NOT FASTINGP ERFORMED BY: BRUCE [facility] Lzaqqy1207 [facility] [id number] BY: [address] [id number] Hematocrit Auto Volume Fraction (Bld) 48.9 % Normal 37.5-51.0 [facility] Work Phone: Hematocrit Volume Fraction (Bld) 48.9 % Normal 37.5-51.0 [facility] Work Phone: Comment on above: PATIENT NOT FASTINGP ERFORMED BY: BRUCE [facility] Wtsyvn9169 [facility] [id number] BY: [address] [id number] Hemoglobin mass conc (Bld) 16.9 g/dL Normal 12.6-17.7 [facility] Work Phone: Comment on above: PATIENT NOT FASTINGP ERFORMED BY: BRUCE [facility] Zxvpqv5957 [facility] [id number] BY: [address] [id number] MCH Auto Entitic mass (RBC) 30.3 pg Normal 26.6-33.0 [facility] Internal Medicine Work Phone: MCH Entitic mass (RBC) 30.3 pg Normal 26.6-33.0 [facility] Internal Medicine Work Phone: Comment on above: PATIENT NOT FASTINGP ERFORMED BY: BRUCE [facility] Havrcq4962 [facility] [id number] BY: [address] [id number] MCHC Auto mass conc (RBC) 34.6 g/dL Normal 31.5-35.7 [facility] Work Phone: MCHC mass conc (RBC) 34.6 g/dL Normal 31.5-35.7 Comp rehensive Internal Medicine Work Phone: Comment on above: PATIENT NOT FASTINGP ERFORMED BY: BRUCE [employer] Kjzniy0634 [facility] [id number] BY: [address] [id number] MCV Auto Entitic volume (RBC) 88 fL Normal 79-97 [facility] Work Phone: MCV Entitic volume (RBC) 88 fL Normal 79-97 [facility] Work Phone: Comment on above: PATIENT NOT FASTINGP ERFORMED BY: BRUCE [employer] Cziqka8635 [facility] [id number] BY: [address] [id number] Platelets #/vol (Bld) 241 {x10E3/uL} Normal 150-379 [facility] Work Phone: Comment on above: PATIENT NOT FASTINGP ERFORMED BY: BRUCE [address] [id number] BY: [address] [id number] Platelets Auto #/vol (Bld) 241 {x10E3/uL} Normal 150-379 [facility] Work Phone: RBC #/vol (Bld) 5.58 {x10E6/uL} Normal 4.14-5.80 Comp rehensive Internal Medicine Work Phone: Comment on above: PATIENT NOT FASTINGP ERFORMED BY: BRUCE [facility] HospitalM[facility] Software[address] [id number] BY: [address] [id number] RBC Auto #/vol (Bld) 5.58 {x10E6/uL} Normal 4.14-5.80 [facility] Work Phone: WBC #/vol (Bld) 4.4 {x10E3/uL} Normal 3.4-10.8 [facility] Work Phone: Comment on above: PATIENT NOT FASTINGP ERFORMED BY: BRUCE [facility] Mqauhn4750 [facility] [id number] BY: [address] [id number] WBC Auto #/vol (Bld) 4.4 {x10E3/uL} Normal 3.4-10.8 [facility] Work Phone: CBC & PLATELETS (AUTO) (0898 8)Ordered By: Airline Transport Pilot on 02-21-2017 Platelets (Bld) [#/Vol] 241 10*3/uL Normal 150-379 [facility]; [facility] Work Phone: Comment on above: PATIENT NOT FASTINGP ERFORMED BY: BRUCE [facility] Lmxejp1840 [facility] [id number] BY: [employer] [id number] RBC (Bld) [#/Vol] 5.58 10*6/uL Normal 4.14-5.80 [facility] Internal Medicine; [facility] Work Phone: Comment on above: PATIENT NOT FASTINGP ERFORMED BY: BRUCE [facility] Txtoqv4596 [facility] [id number] BY: [address] [id number] WBC (Bld) [#/Vol] 4.4 10*3/uL Normal 3.4-10.8 [facility] Internal Medicine; [facility] Work Phone: Comment on above: PATIENT NOT FASTINGP ERFORMED BY: BRUCE [facility] Pniejj4806 [facility] [id number] BY: [address] [id number] FERRITIN (49992)on 7 Ferritin mass conc 194 ng/mL Normal 30-400 [facility] Internal Medicine Work Phone: Comment on above: PATIENT NOT FASTINGP ERFORMED BY: CB [facility] Jusveh0536 [address] RoadDublin [place] [id number] BY: Lab[address] [id number] IRON (92578)on 02-21-2017 Iron mass conc 121 ug/dL Normal 38-169 Comprehens charly Internal Medicine Work Phone: Comment on above: PATIENT NOT FASTINGP ERFORMED BY: CB [facility] Amubsa5141 [address] RoadDublin [place] [id number] BY: Lab[address] [id number] Metabolic Panel, Comprehcobalt rehabilitation (tbi) hospitali ve (99971)on 02-21-2017 Albumin mass conc 4.9 g/dL Normal 3.5-5.5 Compreh [facility] Internal Medicine Work Phone: Comment on above: PATIENT NOT FASTINGP ERFORMED BY: CB [facility] Nvywkj7024 [address] RoadDublin [place] [id number] BY: Lab[address] [id number] Albumin/Globulin mass ratio 1.9 {ratio} Normal 1.2-2.2 [facility] Internal Medicine Work Phone: Comment on above: PATIENT NOT FASTINGP ERFORMED BY: CB [facility] Foyrnm0466 [address] RoadDublin [place] [id number] BY: [facility] [address] [id number] ALP enzyme act/vol 88 [iU]/L Normal 39-117 [facility] Internal Medicine Work Phone: Comment on above: PATIENT NOT FASTINGP ERFORMED BY: CB [facility] Irxuwe9879 [address] RoadDublin [place] [id number] BY: Lab[address] [id number] ALT enzyme act/vol 9 [iU]/L Normal 0-44 [facility] Internal Medicine Work Phone: Comment on above: PATIENT NOT FASTINGP ERFORMED BY: CB [facility] Kovxhh9094 [address] RoadDublin [place] [id number] BY: [facility] [address] [id number] AST enzyme act/vol 19 [iU]/L Normal 0-40 Compre [facility] Internal Medicine Work Phone: Comment on above: PATIENT NOT FASTINGP ERFORMED BY: CB [facility] Dmhjhn7613 [address] RoadDublin [place] [id number] BY: LabCo[address] [id number] Bilirubin mass conc 0.5 mg/dL Normal 0.0-1.2 Compr ensive Internal Medicine Work Phone: Comment on above: PATIENT NOT FASTINGP ERFORMED BY: CB [facility] Vraiof5124 [address] RoadDublin [place] [id number] BY: LabCo[address] [id number] Calcium mass conc 9.7 mg/dL Normal 8.7-10.2 Compreh [facility] hospitalive Internal Medicine Work Phone: Comment on above: PATIENT NOT FASTINGP ERFORMED BY: CB [facility] Kvbgbf0744 [address] RoadDublin [place] [id number] BY: [facility] [address] [id number] Chloride molar conc 99 mmol/L Normal 96-106 Compr ensive Internal Medicine Work Phone: Comment on above: PATIENT NOT FASTINGP ERFORMED BY: CB [facility] Yadsmy7975 [address] RoadDublin [place] [id number] BY: [facility] [address] [id number] CO2 molar conc 23 mmol/L Normal 18-29 Comprehens charly Internal Medicine Work Phone: Comment on above: PATIENT NOT FASTINGP ERFORMED BY: CB [facility] Xktgqx3659 [address] RoadDublin [place] [id number] BY: [address] [id number] Creatinine mass conc 0.88 mg/dL Normal 0.76-1.27 Comp [facility] centerensive Internal Medicine Work Phone: Comment on above: PATIENT NOT FASTINGP ERFORMED BY: CB [facility] Rsijxo8140 [facility] [id number] BY: [address] [id number] GFR/1.73 sq M predicted among blacks CKD-EPI vol rate/area (S/P/Bld) 135 mL/min/1.73 Normal [facility] Work Phone: Comment on above: PATIENT NOT FASTINGP ERFORMED BY: CB [facility] Yhgjkw2559 [facility] [id number] BY: [employer] [id number] GFR/1.73 sq M predicted among non-blacks CKD-EPI vol rate/area (S/P/Bld) 117 mL/min/1.73 Normal Comprehensiv e Internal Medicine Work Phone: Comment on above: PATIENT NOT FASTINGP ERFORMED BY: CB [facility] Rdukrg2078 [facility] [id number] BY: [address] [id number] Globulin Calculated mass conc (S) 2.6 g/dL Normal 1.5-4.5 [facility] Work Phone: Globulin mass conc (S) 2.6 g/dL Normal 1.5-4.5 Co cox northensive Internal Medicine Work Phone: Comment on above: PATIENT NOT FASTINGP ERFORMED BY: CB [facility] Tuuztb8735 [facility] [id number] BY: [employer] [id number] Glucose mass conc 88 mg/dL Normal 65-99 Compreh ensive Internal Medicine Work Phone: Comment on above: PATIENT NOT FASTINGP ERFORMED BY: CB [facility] Itbcvf0707 [address] RoadDublin [place] [id number] BY: [facility] [address] [id number] Potassium molar conc 4.5 mmol/L Normal 3.5-5.2 Comp rehensive Internal Medicine Work Phone: Comment on above: PATIENT NOT FASTINGP ERFORMED BY: CB [facility] Aibiar8669 [address] RoadNovant Health Charlotte Orthopaedic Hospitalin [place] [id number] BY: LabCo[address] [id number] Protein mass conc 7.5 g/dL Normal 6.0-8.5 Compreh ensive Internal Medicine Work Phone: Comment on above: PATIENT NOT FASTINGP ERFORMED BY: CB [facility] Nwgjjo3101 Stoddard RoadDuin [place] [id number] BY: LabCo[address] [id number] Sodium molar conc 142 mmol/L Normal 134-144 Compreh ensive Internal Medicine Work Phone: Comment on above: PATIENT NOT FASTINGP ERFORMED BY: CB [facility] Bjlxab1702 [address] [facility]in [place] [id number] BY: Lab[address] [id number] Urea nitrogen mass conc 13 mg/dL Normal 6-20 [facility] Work Phone: Comment on above: PATIENT NOT FASTINGP ERFORMED BY: CB [facility] Wizqyq9[address] [facility]in [place] [id number] BY: LabCo[address] [id number] Urea nitrogen/Creatinine mass ratio 15 mg/mg Normal 9-20 [facility] Work Phone: Comment on above: PATIENT NOT FASTINGP ERFORMED BY: CB [facility] Vzfgpx035[address] [facility] [id number] BY: Lab[address] [id number] Metabolic Panel, Comprehensi ve (65819)Ordered By: Airline Transport Pilot on 02-21-2017 ALP [Catalytic activity/Vol] 88 U/L Normal 39-117 [facility]; [facility] Work Phone: Comment on above: PATIENT NOT FASTINGP ERFORMED BY: BRUCE [facility] Mscfqi[address] [facility] [id number] BY: Lab[address] [id number] ALT [Catalytic activity/Vol] 9 U/L Normal 0-44 [facility]; [facility] Work Phone: Comment on above: PATIENT NOT FASTINGP ERFORMED BY: [facility] Opmrgx[address] [facility] [id number] BY: [address] [id number] AST [Catalytic activity/Vol] 19 U/L Normal 0-40 [facility]; [facility] Work Phone: Comment on above: PATIENT NOT FASTINGP ERFORMED BY: BRUCE [facility] Eumcuc4718 [facility] [id number] BY: [address] [id number] Methymalonic Acid, Serum (83 921)on 02-21-2017 Methylmalonate molar conc 194 nmol/L Normal 0-378 [facility] Work Phone: Comment on above: PATIENT NOT FASTINGP ERFORMED BY: [facility] Afbceu7422 [facility] [id number] BY: [address] [id number] T3, FREE (TRIDOTHYRONINE) (1 8667)on 02-21-2017 T3 free mass conc 4.3 pg/mL Normal 2.0-4.4 Compreh ensive Internal Medicine Work Phone: Comment on above: PATIENT NOT FASTINGP ERFORMED BY: [facility] Woadqq[address] [facility] [id number] BY: [employer] [id number] T4, FREE (THYROXINE) (89281) on 02-21-2017 T4 free mass conc 1.39 ng/dL Normal 0.82-1.77 Compreh ensive Internal Medicine Work Phone: Comment on above: PATIENT NOT FASTINGP ERFORMED BY: [facility] Iwruag[address] [facility] [id number] BY: [address] [id number] TSH (89556)on 02-21-2017 Thyrotropin Qn 1.360 {uIU/mL} Normal 0.450-4.500 Compr [facility] Internal Medicine Work Phone: Comment on above: PATIENT NOT FASTINGP ERFORMED BY: 3 day BlindsMountainside HospitalWkdsre0851 [facility] [id number] BY: [employer] [id number] VITAMIN B12 AND FOLATES (826 07)on 02-21-2017 Cobalamin (Vitamin B12) mass conc 365 pg/mL Normal 211-946 [facility] Work Phone: Comment on above: PATIENT NOT FASTINGP ERFORMED BY: 3 day BlindsMountainside HospitalYeovki5965 [facility] [id number] BY: [address] [id number] Folate mass conc 11.9 ng/mL Normal Comprehe ive Internal Medicine Work Phone: Comment on above: A serum folate marcelino ntration of less than 3.1 ng/mL isconsidered to represent clinical deficiency. PATIENT NOT FASTINGP ERFORMED BY: 3 day Blinds Bxyulm4275 [facility] [id number] BY: [address] [id number] Serum Protein Electrophoresi s (SPEP) (41161)on 12-26-2016 Albumin mass conc 4.5 g/dL Abnormal 2.9-4.4 Compreh ensive Internal Medicine Work Phone: Comment on above: PATIENT NOT FASTINGP ERFORMED BY: CB [facility] Sjktnn7258 [address] RoadDublin [place] [id number] Albumin/Globulin mass ratio 1.7 {ratio} Normal 0.7-1.7 [facility] Work Phone: Comment on above: PATIENT NOT FASTINGP ERFORMED BY: CB [facility] Qmltvk9200 [address] Roadblin [place] [id number] Alpha 1 globulin Elph mass conc 0.2 g/dL Normal 0.0-0.4 [facility] Work Phone: Comment on above: PATIENT NOT FASTINGP ERFORMED BY: CB [facility] Citapl4805 [address]oddard RoadNovant Health Charlotte Orthopaedic Hospitalin [place] [id number] Alpha 2 globulin Elph mass conc 0.7 g/dL Normal 0.4-1.0 [facility] Work Phone: Comment on above: PATIENT NOT FASTINGP ERFORMED BY: CB [facility] Pwqofr3352 Stoddard RoadNovant Health Charlotte Orthopaedic Hospitalin [place] [id number] Beta globulin Elph mass conc 1.0 g/dL Normal 0.7-1.3 [facility] Work Phone: Comment on above: PATIENT NOT FASTINGP ERFORMED BY: CB [facility] Rtjypf2110 [address] Roadblin [place] [id number] Gamma globulin Elph mass conc 0.8 g/dL Normal 0.4-1.8 [facility] Work Phone: Comment on above: PATIENT NOT FASTINGP ERFORMED BY: CB [facility] Pneyvs3293 [address] Roadblin [place] [id number] Globulin Calculated mass conc (S) 2.7 g/dL Normal 2.2-3.9 [facility] Work Phone: Globulin mass conc (S) 2.7 g/dL Normal 2.2-3.9 Co [facility] Internal Medicine Work Phone: Comment on above: PATIENT NOT FASTINGP ERFORMED BY: CB [facility] Datoag7270 [address] RoadDublin [place] [id number] Laboratory comment Andrae (Report) SPRCS Normal [facility] Work Phone: Comment on above: Protein electrophore sis scan will follow via computer, mail, orcourier delivery. PATIENT NOT FASTINGP ERFORMED BY: CB [facility] Zbyqhx6934 [address] RoadDublin [place] [id number] Protein mass conc 7.2 g/dL Normal 6.0-8.5 Compreh ensive Internal Medicine Work Phone: Comment on above: PATIENT NOT FASTINGP ERFORMED BY: CB [facility] Qjhfqh5369 [address] RoadDublin [place] [id number] Protein.monoclonal Elph mass conc Not Observed Normal [facility] Work Phone: Comment on above: PATIENT NOT FASTINGP ERFORMED BY: CB [facility] Titynt3343 [address] RoadDublin [place] [id number] VITAMIN B-12 (CYANOCOBALAMIN ) (09117)on 12-26-2016 Cobalamin (Vitamin B12) mass conc 385 pg/mL Normal 211-946 [facility] Work Phone: Comment on above: PATIENT NOT FASTINGP ERFORMED BY: CB [facility] Vpgifj3325 [address] RoadDublin [place] [id number] Vital Signs Date Time Vital Sign Value Performing Clinician Facility 03-28-2022 11:56-0400 Body height 175.26 cm [facility]; [facility] Work Phone: 03-28-2022 11:56-0400 Body mass index (BMI) [Ratio] 33.13 kg/m2 [facility]; [facility] Work Phone: 03-28-2022 11:56-0400 Body surface area Derived from formula 2.17 m2 [facility]; [facility] Work Phone: 03-28-2022 11:56-0400 Body temperature 97.1 [degF] [facility] Comprehensiv e Internal Medicine; [facility] Work Phone: 03-28-2022 11:56-0400 Body weight 101.78 kg Calvin Hui [facility]; [facility] Work Phone: 03-28-2022 11:56-0400 Diastolic blood pressure 80 mm[Hg] Calvin Hui [facility]; [facility] Work Phone: Comment on above: Patient Position: Sitting; Cuff Location : Left Arm; Cuff Size: Standard 03-28-2022 11:56-0400 Heart rate 73 /min Calvin Hui [facility]; [facility] Work Phone: Comment on above: Pattern: Regular 03-28-2022 11:56-0400 Respiratory rate 16 /min Calvin Hui [facility] Comprehensiv e Internal Medicine; [facility] Work Phone: Comment on above: Pattern: Unlabored 03-28-2022 11:56-0400 SaO2% (BldA) [Mass fraction] 96 % Calvin Hui [facility]; [facility] Work Phone: Comment on above: Room air 03-28-2022 11:56-0400 Systolic blood pressure 138 mm[Hg] Calvin Hui [facility]; [facility] Work Phone: Comment on above: Patient Position: Sitting; Cuff Location : Left Arm; Cuff Size: Standard 09-18-2020 10:17-0400 BMI (Body Mass Index) 31.01 kg/m2 Neda Baron [facility]; [facility] Work Phone: Comment on above: pt did not report 09-18-2020 10:17-0400 Body weight 95.27 kg Neda Childresstl [facility]; [facility] Work Phone: Comment on above: pt did not report 09-18-2020 10:17-0400 BSA (Body Surface Area) 2.11 m2 Neda Slarb ELECTROPHYSIOLOGY TECHNOLOGIST [facility]; [facility] Work Phone: Comment on above: pt did not report 09-18-2020 10:17-0400 Height 175.26 cm Neda Slarb ELECTROPHYSIOLOGY TECHNOLOGIST [facility]; [facility] Work Phone: Comment on above: pt did not report 08-04-2020 10:34-0500 BMI (Body Mass Index) 31.01 kg/m2 Neda Slarb ELECTROPHYSIOLOGY TECHNOLOGIST [facility]; [facility] Work Phone: Comment on above: pt repoprted 08-04-2020 10:34-0500 Body weight 95.27 kg Neda Slarb ELECTROPHYSIOLOGY TECHNOLOGIST [facility]; [facility] Work Phone: Comment on above: pt repoprted 08-04-2020 10:34-0500 BP Diastolic 98 mm[Hg] Neda Slarb ELECTROPHYSIOLOGY TECHNOLOGIST [facility]; [facility] Work Phone: Comment on above: Patient Position: Sitting; Cuff Location : Left Arm; Cuff Size: Standard pt repoprted 08-04-2020 10:34-0500 BP Systolic 146 mm[Hg] Neda Slarb ELECTROPHYSIOLOGY TECHNOLOGIST [facility]; [facility] Work Phone: Comment on above: Patient Position: Sitting; Cuff Location : Left Arm; Cuff Size: Standard pt repoprted 08-04-2020 10:34-0500 BSA (Body Surface Area) 2.11 m2 Neda Slarb ELECTROPHYSIOLOGY TECHNOLOGIST [facility]; [facility] Work Phone: Comment on above: pt repoprted 08-04-2020 10:34-0500 Height 175.26 cm Neda Slarb ELECTROPHYSIOLOGY TECHNOLOGIST [facility]; [facility] Work Phone: Comment on above: pt repoprted 08-04-2020 10:34-0500 Pulse (Heart Rate) 100 /min Neda Slarb ELECTROPHYSIOLOGY TECHNOLOGIST Comprehensiv e Internal Medicine; [facility] Work Phone: Comment on above: Pattern: Regular pt repoprted 07-17-2020 10:46-0500 BMI (Body Mass Index) 31.01 kg/m2 Sommer Hollowayon DO Work Phone: [facility]; [facility] Work Phone: Comment on above: vs taken by pt as this is phone encounte r due to covid 07-17-2020 10:46-0500 Body weight 95.27 kg Sommer العراقي DO Work Phone: [facility]; [facility] Work Phone: Comment on above: vs taken by pt as this is phone encounte r due to covid 07-17-2020 10:46-0500 BP Diastolic 84 mm[Hg] Sommer Dulce Maria DO Work Phone: [facility]; [facility] Work Phone: Comment on above: Patient Position: Sitting vs taken by pt as th is is phone encounter due to covid 07-17-2020 10:46-0500 BP Systolic 128 mm[Hg] Sommer Hollowayon DO Work Phone: Comprehensive Internal Medicine; [facility] Work Phone: Comment on above: Patient Position: Sitting vs taken by pt as th is is phone encounter due to covid 07-17-2020 10:46-0500 BSA (Body Surface Area) 2.11 m2 Sommer Hollowayon DO Work Phone: [facility]; [facility] Work Phone: Comment on above: vs taken by pt as this is phone encounte r due to covid 07-17-2020 10:46-0500 Height 175.26 cm Sommer العراقي DO Work Phone: [facility]; [facility] Work Phone: Comment on above: vs taken by pt as this is phone encounte r due to covid 05-12-2020 09:10-0500 BMI (Body Mass Index) 31.01 kg/m2 Magno Knox LPN [facility] Work Phone: 05-12-2020 09:10-0500 Body Temperature 96.9 [degF] Magno Knox LPN [facility] Work Phone: Comment on above: Method: Infrared 05-12-2020 09:10-0500 Body weight 95.27 kg Magno Knox LPN [facility] Internal Medicine Work Phone: 05-12-2020 09:10-0500 BP Diastolic 80 mm[Hg] Magno Knox ELECTROPHYSIOLOGY TECHNOLOGIST [facility] Internal Medicine Work Phone: Comment on above: Patient Position: Sitting; Cuff Location : Left Arm; Cuff Size: Standard 05-12-2020 09:10-0500 BP Systolic 132 mm[Hg] Magno Knox [facility] Internal Medicine Work Phone: Comment on above: Patient Position: Sitting; Cuff Location : Left Arm; Cuff Size: Standard 05-12-2020 09:10-0500 BSA (Body Surface Area) 2.11 m2 Magno Knox [facility] Internal Medicine Work Phone: 05-12-2020 09:10-0500 Height 175.26 cm Magno Knox [facility] Internal Medicine Work Phone: 05-12-2020 09:10-0500 Pulse (Heart Rate) 91 /min Magno Knox LPN [facility] Work Phone: Comment on above: Pattern: Regular 05-12-2020 09:10-0500 Pulse Oximetry 99 % Sommer العراقي [facility] Internal Medicine Work Phone: Comment on above: Room air 05-12-2020 09:10-0500 Respiratory Rate 16 /min Magno Knox [facility] Internal Medicine Work Phone: Comment on above: Pattern: Unlabored 05-12-2020 09:10-0500 SaO2% (BldA) [Mass fraction] 99 % Magno Knox [facility] Internal Medicine; [facility] Work Phone: Comment on above: Room air 03-15-2020 15:44-0400 BMI (Body Mass Index) 32.52 kg/m2 Yessica Sims [facility] Internal Medicine Work Phone: 03-15-2020 15:44-0400 Body weight 99.91 kg Yessica Sims [facility] Internal Medicine Work Phone: 03-15-2020 15:44-0400 BSA (Body Surface Area) 2.15 m2 Yessica Sims [facility] Internal Medicine Work Phone: 03-15-2020 15:44-0400 Height 175.26 cm Yessica Levi ELECTROPHYSIOLOGY TECHNOLOGIST [facility] Work Phone: 03-15-2020 15:42-0400 BMI (Body Mass Index) 32.52 kg/m2 Sommer Dulce Maria DO Work Phone: [facility] Work Phone: 03-15-2020 15:42-0400 Body weight 99.91 kg Sommer Dulce Maria DO Work Phone: [facility] Work Phone: 03-15-2020 15:42-0400 BP Diastolic 72 mm[Hg] Sommer Dulce Maria DO Work Phone: [facility] Work Phone: Comment on above: Patient Position: Sitting 03-15-2020 15:42-0400 BP Systolic 130 mm[Hg] Sommer Dulce Maria DO Work Phone: [facility] Work Phone: Comment on above: Patient Position: Sitting 03-15-2020 15:42-0400 BSA (Body Surface Area) 2.15 m2 Sommer Dulce Maria DO Work Phone: [facility] Work Phone: 03-15-2020 15:42-0400 Height 175.26 cm Sommer Dulce Maria DO Work Phone: [facility] Work Phone: 12-13-2019 14:56-0400 BMI (Body Mass Index) 32.52 kg/m2 Lashae Stevens RN [facility] Work Phone: Comment on above: Vital signs not obtained d/t call or vir tual visit 12-13-2019 14:56-0400 Body weight 99.91 kg Lashae Stevens RN [facility] Work Phone: Comment on above: Vital signs not obtained d/t call or vir tual visit 12-13-2019 14:56-0400 BSA (Body Surface Area) 2.15 m2 Lashae Stevens RN [facility] Work Phone: Comment on above: Vital signs not obtained d/t call or vir tual visit 12-13-2019 14:56-0400 Height 175.26 cm Lashae Stevens RN [facility] Work Phone: Comment on above: Vital signs not obtained d/t call or vir tual visit 11-29-2019 15:47-0400 BMI (Body Mass Index) 32.52 kg/m2 Argenis Dumont ECONOMIC ADVISER [facility] Work Phone: 11-29-2019 15:47-0400 Body Temperature 96.4 [degF] Argenis Dumont CMA [facility] Work Phone: Comment on above: Method: Temporal 11-29-2019 15:47-0400 Body weight 99.91 kg Argenis Dumont CMA [facility] Work Phone: 11-29-2019 15:47-0400 BP Diastolic 100 mm[Hg] Argenis Dumont [facility] Work Phone: Comment on above: Patient Position: Sitting; Cuff Location : Left Arm; Cuff Size: Standard 11-29-2019 15:47-0400 BP Systolic 158 mm[Hg] Argenis Dumont [facility] Work Phone: Comment on above: Patient Position: Sitting; Cuff Location : Left Arm; Cuff Size: Standard 11-29-2019 15:47-0400 BSA (Body Surface Area) 2.15 m2 Argenis Dumont [facility] Work Phone: 11-29-2019 15:47-0400 Height 175.26 cm Argenis Dumont [facility] Work Phone: 11-29-2019 15:47-0400 Pulse (Heart Rate) 108 /min Argenis Dumont CMA Comprehens charly Internal Medicine Work Phone: Comment on above: Pattern: Regular 11-29-2019 15:47-0400 Pulse Oximetry 98 % Sommer العراقي [facility] Work Phone: Comment on above: Room air 11-29-2019 15:47-0400 Respiratory Rate 16 /min Argenis Dumont CMA Com[facility] Work Phone: Comment on above: Pattern: Unlabored 11-29-2019 15:47-0400 SaO2% (BldA) [Mass fraction] 98 % Argenis Tim LUNA [facility]; [facility] Work Phone: Comment on above: Room air 12-25-2017 09:53-0400 BMI (Body Mass Index) 31.93 kg/m2 Lashae Stevens RN [facility] Work Phone: 12-25-2017 09:53-0400 Body Temperature 97.7 [degF] Lashae Stevens RN [facility] Work Phone: Comment on above: Method: Temporal 12-25-2017 09:53-0400 Body weight 98.09 kg Lashae Stevens RN [facility] Work Phone: 12-25-2017 09:53-0400 BP Diastolic 88 mm[Hg] Lashae Stevens RN [facility] Work Phone: Comment on above: Patient Position: Sitting; Cuff Location : Left Arm; Cuff Size: Large 12-25-2017 09:53-0400 BP Systolic 142 mm[Hg] Lashae Stevens RN [facility] Work Phone: Comment on above: Patient Position: Sitting; Cuff Location : Left Arm; Cuff Size: Large 12-25-2017 09:53-0400 BSA (Body Surface Area) 2.14 m2 Lashae Stevens RN [facility] Work Phone: 12-25-2017 09:53-0400 Height 175.26 cm Lashae Setvens RN [facility] Work Phone: 12-25-2017 09:53-0400 Pulse (Heart Rate) 89 /min Lashae Stevens RN [facility] Work Phone: Comment on above: Pattern: Regular 12-25-2017 09:53-0400 Pulse Oximetry 97 % Sommer العراقي [facility] Work Phone: Comment on above: Room air 12-25-2017 09:53-0400 Respiratory Rate 17 /min Lashae Stevens RN [facility] Work Phone: Comment on above: Pattern: Labored 12-25-2017 09:53-0400 SaO2% (BldA) [Mass fraction] 97 % Lashae Stevens RN [facility]; [facility] Work Phone: Comment on above: Room air 12-25-2017 09:53-0400 Weight 98.09 kg Sommer Dulce Maria [facility] Work Phone: 11-18-2017 11:25-0400 BMI (Body Mass Index) 31.93 kg/m2 Magno Knox LPN [facility] Work Phone: 11-18-2017 11:25-0400 Body Temperature 97 [degF] Magno Knox LPN [facility] Work Phone: 11-18-2017 11:25-0400 Body weight 98.09 kg Magno Knox LPN [facility] Work Phone: 11-18-2017 11:25-0400 BP Diastolic 78 mm[Hg] Magno Knox LPN [facility] Work Phone: Comment on above: Patient Position: Sitting; Cuff Location : Left Arm; Cuff Size: Standard 11-18-2017 11:25-0400 BP Systolic 118 mm[Hg] Magno Knox LPN [facility] Internal Medicine Work Phone: Comment on above: Patient Position: Sitting; Cuff Location : Left Arm; Cuff Size: Standard 11-18-2017 11:25-0400 BSA (Body Surface Area) 2.14 m2 Magno Knox LPN [facility] Work Phone: 11-18-2017 11:25-0400 Height 175.26 cm Magno Knox LPN [facility] Work Phone: 11-18-2017 11:25-0400 Pulse (Heart Rate) 75 /min Magno Knox LPN [facility] Work Phone: Comment on above: Pattern: Regular 11-18-2017 11:25-0400 Pulse Oximetry 97 % Sommer العراقي [facility] Internal Medicine Work Phone: Comment on above: Room air 11-18-2017 11:25-0400 SaO2% (BldA) [Mass fraction] 97 % Magno Knox LPN [facility]; [facility] Work Phone: Comment on above: Room air 11-18-2017 11:25-0400 Weight 98.09 kg Sommer العراقي [facility] Work Phone: 09-17-2017 15:17-0400 BMI (Body Mass Index) 31.93 kg/m2 Lashae Stevens RN [facility] Work Phone: 09-17-2017 15:17-0400 Body weight 98.09 kg Lashae Stevens RN [facility] Work Phone: 09-17-2017 15:17-0400 BP Diastolic 90 mm[Hg] Lashae Stevens RN [facility] Work Phone: Comment on above: Patient Position: Sitting; Cuff Location : Left Arm; Cuff Size: Large 09-17-2017 15:17-0400 BP Systolic 128 mm[Hg] Lashae Stevens RN [facility] Work Phone: Comment on above: Patient Position: Sitting; Cuff Location : Left Arm; Cuff Size: Large 09-17-2017 15:17-0400 BSA (Body Surface Area) 2.14 m2 Lashae Stevens RN [facility] Work Phone: 09-17-2017 15:17-0400 Height 175.26 cm Lashae Stevens RN [facility] Work Phone: 09-17-2017 15:17-0400 Pulse (Heart Rate) 82 /min Lashae Stevens RN [facility] Work Phone: Comment on above: Pattern: Regular 09-17-2017 15:17-0400 Pulse Oximetry 98 % Sommer اعلراقي [facility] Work Phone: Comment on above: Room air 09-17-2017 15:17-0400 Respiratory Rate 18 /min Lashae Stevens RN [facility] Work Phone: Comment on above: Pattern: Unlabored 09-17-2017 15:17-0400 SaO2% (BldA) [Mass fraction] 98 % Lashae Stevens RN [facility]; [facility] Work Phone: Comment on above: Room air 09-17-2017 15:17-0400 Weight 98.09 kg Sommer العراقي [facility] Medicine Work Phone: 03-27-2017 14:49-0400 BMI (Body Mass Index) 30.2 kg/m2 Neda Slarb ELECTROPHYSIOLOGY TECHNOLOGIST [facility] Work Phone: 03-27-2017 14:49-0400 Body Temperature 98.5 [degF] Neda Slarb ELECTROPHYSIOLOGY TECHNOLOGIST [facility] Work Phone: Comment on above: Method: Oral 03-27-2017 14:49-0400 Body weight 92.76 kg Neda Slarb ELECTROPHYSIOLOGY TECHNOLOGIST [facility] Work Phone: 03-27-2017 14:49-0400 BP Diastolic 80 mm[Hg] Neda Slarb ELECTROPHYSIOLOGY TECHNOLOGIST [facility] Work Phone: Comment on above: Patient Position: Sitting; Cuff Location : Left Arm; Cuff Size: Standard 03-27-2017 14:49-0400 BP Systolic 116 mm[Hg] Neda Slarb ELECTROPHYSIOLOGY TECHNOLOGIST [facility] Work Phone: Comment on above: Patient Position: Sitting; Cuff Location : Left Arm; Cuff Size: Standard 03-27-2017 14:49-0400 BSA (Body Surface Area) 2.09 m2 Neda Slarb ELECTROPHYSIOLOGY TECHNOLOGIST [facility] Work Phone: 03-27-2017 14:49-0400 Height 175.26 cm Neda Slarb ELECTROPHYSIOLOGY TECHNOLOGIST [facility] Work Phone: 03-27-2017 14:49-0400 Pulse (Heart Rate) 80 /min Neda Slarb ELECTROPHYSIOLOGY TECHNOLOGIST [facility] Work Phone: Comment on above: Pattern: Regular 03-27-2017 14:49-0400 Pulse Oximetry 97 % Sommer العراقي [facility] Medicine Work Phone: Comment on above: Room air 03-27-2017 14:49-0400 Respiratory Rate 16 /min Neda Slarb ELECTROPHYSIOLOGY TECHNOLOGIST [facility] Work Phone: Comment on above: Pattern: Unlabored 03-27-2017 14:49-0400 SaO2% (BldA) [Mass fraction] 97 % Neda Slarb ELECTROPHYSIOLOGY TECHNOLOGIST [facility]; [facility] Work Phone: Comment on above: Room air 03-27-2017 14:49-0400 Weight 92.76 kg Sommer العراقي [facility] Work Phone: 03-25-2017 11:30-0400 BMI (Body Mass Index) 30.2 kg/m2 Lashae Stevens RN [facility] Work Phone: 03-25-2017 11:30-0400 Body Temperature 99.3 [degF] Lasahe Stevens RN [facility] Work Phone: Comment on above: Method: Temporal 03-25-2017 11:30-0400 Body weight 92.76 kg Lashae Stevens RN [facility] Work Phone: 03-25-2017 11:30-0400 BP Diastolic 78 mm[Hg] Lashae Stevens RN [facility] Work Phone: Comment on above: Patient Position: Sitting; Cuff Location : Left Arm; Cuff Size: Large 03-25-2017 11:30-0400 BP Systolic 118 mm[Hg] Lashae Stevens RN [facility] Work Phone: Comment on above: Patient Position: Sitting; Cuff Location : Left Arm; Cuff Size: Large 03-25-2017 11:30-0400 BSA (Body Surface Area) 2.09 m2 Lashae Stevens RN [facility] Work Phone: 03-25-2017 11:30-0400 Height 175.26 cm Lashae Stevens RN [facility] Work Phone: 03-25-2017 11:30-0400 Pulse (Heart Rate) 88 /min Lashae Stevens RN [facility] Work Phone: Comment on above: Pattern: Regular 03-25-2017 11:30-0400 Pulse Oximetry 98 % Sommer العراقي [facility] Work Phone: Comment on above: Room air 03-25-2017 11:30-0400 Respiratory Rate 18 /min Lashae Stevens RN [facility] Work Phone: Comment on above: Pattern: Unlabored 03-25-2017 11:30-0400 SaO2% (BldA) [Mass fraction] 98 % Lashae Stevens RN [facility]; [facility] Work Phone: Comment on above: Room air 03-25-2017 11:30-0400 Weight 92.76 kg Sommer العراقي [facility] Work Phone: 02-21-2017 07:51-0400 BMI (Body Mass Index) 30.2 kg/m2 Lashae Stevens RN [facility] Work Phone: 02-21-2017 07:51-0400 Body weight 92.76 kg Lashae Stevens RN [facility] Work Phone: 02-21-2017 07:51-0400 BP Diastolic 80 mm[Hg] Lashae Stevens RN [facility] Work Phone: Comment on above: Patient Position: Sitting; Cuff Location : Left Arm; Cuff Size: Large 02-21-2017 07:51-0400 BP Systolic 122 mm[Hg] Lashae Stevens RN [facility] Work Phone: Comment on above: Patient Position: Sitting; Cuff Location : Left Arm; Cuff Size: Large 02-21-2017 07:51-0400 BSA (Body Surface Area) 2.09 m2 Lashae Stevens RN [facility] Work Phone: 02-21-2017 07:51-0400 Height 175.26 cm Lashae Stevens RN [facility] Work Phone: 02-21-2017 07:51-0400 Pulse (Heart Rate) 70 /min Lashae Stevens RN [facility] Work Phone: Comment on above: Pattern: Regular 02-21-2017 07:51-0400 Pulse Oximetry 98 % Sommer العراقي [facility] Work Phone: Comment on above: Room air 02-21-2017 07:51-0400 Respiratory Rate 18 /min Lashae Stevens RN [facility] Work Phone: Comment on above: Pattern: Unlabored 02-21-2017 07:51-0400 SaO2% (BldA) [Mass fraction] 98 % Lashae Stevens RN [facility]; [facility] Work Phone: Comment on above: Room air 02-21-2017 07:51-0400 Weight 92.76 kg Sommer العراقي [facility] Work Phone: 01-31-2017 07:01-0400 BMI (Body Mass Index) 29.72 kg/m2 Lashae Stevens RN [facility] Work Phone: 01-31-2017 07:01-0400 Body weight 91.29 kg Lashae Stevens RN [facility] Work Phone: 01-31-2017 07:01-0400 BP Diastolic 80 mm[Hg] Lashae Stevens RN [facility] Work Phone: Comment on above: Patient Position: Sitting; Cuff Location : Left Arm; Cuff Size: Large 01-31-2017 07:01-0400 BP Systolic 110 mm[Hg] Lashae Stevens RN [facility] Work Phone: Comment on above: Patient Position: Sitting; Cuff Location : Left Arm; Cuff Size: Large 01-31-2017 07:01-0400 BSA (Body Surface Area) 2.07 m2 Lashae Stevens RN [facility] Work Phone: 01-31-2017 07:01-0400 Height 175.26 cm Lashae Stevens RN [facility] Work Phone: 01-31-2017 07:01-0400 Pulse (Heart Rate) 64 /min Lashae Stevens RN [facility] Work Phone: Comment on above: Pattern: Regular 01-31-2017 07:01-0400 Pulse Oximetry 98 % Sommer العراقي [facility] Work Phone: Comment on above: Room air 01-31-2017 07:01-0400 Respiratory Rate 18 /min Lashae Stevens RN [facility] Work Phone: Comment on above: Pattern: Unlabored 01-31-2017 07:01-0400 SaO2% (BldA) [Mass fraction] 98 % Lashae Stevens RN [facility]; [facility] Work Phone: Comment on above: Room air 01-31-2017 07:01-0400 Weight 91.29 kg Sommer العراقي [facility] Work Phone: 12-26-2016 11:03-0400 BMI (Body Mass Index) 28.57 kg/m2 Lashae Stevens RN [facility] Work Phone: 12-26-2016 11:03-0400 Body weight 87.77 kg Lashae Stevens RN [facility] Work Phone: 12-26-2016 11:03-0400 BP Diastolic 82 mm[Hg] Lashae Stevens RN [facility] Work Phone: Comment on above: Patient Position: Sitting; Cuff Location : Left Arm; Cuff Size: Large 12-26-2016 11:03-0400 BP Systolic 126 mm[Hg] Lashae Stevens RN [facility] Work Phone: Comment on above: Patient Position: Sitting; Cuff Location : Left Arm; Cuff Size: Large 12-26-2016 11:03-0400 BSA (Body Surface Area) 2.04 m2 Lashae Stevens RN [facility] Work Phone: 12-26-2016 11:03-0400 Height 175.26 cm Lashae Stevens RN [facility] Work Phone: 12-26-2016 11:03-0400 Pulse (Heart Rate) 92 /min Lashae Stevens RN [facility] Work Phone: Comment on above: Pattern: Regular 12-26-2016 11:03-0400 Pulse Oximetry 96 % Sommer Hollowayon [facility] Work Phone: Comment on above: Room air 12-26-2016 11:03-0400 Respiratory Rate 18 /min Lashae Stevens RN [facility] Work Phone: Comment on above: Pattern: Unlabored 12-26-2016 11:03-0400 SaO2% (BldA) [Mass fraction] 96 % Lashae Stevens RN [facility]; [facility] Work Phone: Comment on above: Room air 12-26-2016 11:03-0400 Weight 87.77 kg Sommer العراقي [facility] Work Phone: Encounters Encounter Date Encounter Type Care Provider Facility Start: 12-15-2024 ambulatory Sommer العراقي Facilit y:[facility] Start: 12-15-2024 Non-patient / Non-visit Dr. Guillaume Alfaro MD -[facility] Start: 12-15-2024 End: 12-15-[address] Sommer العراقي DO Work Phone: [facility] Work Phone: Start: 12-15-2024 End: 12-15-[address] Sommer العراقي DO -Cat Scan [facility] Work Phone: Start: 12-15-2024 End: 12-15-2024 ambulatory Sommer Hollowayon Facility:[facility] Start: 03-28-2022 End: 03-28-2022 Office outpatient visit 25 minutes Sommer العراقي DO Work Phone: [facility] Start: 03-11-2022 ambulatory Sommer العراقي DO Comp rehensive Internal Med Start: 09-18-2020 End: 09-18-2020 Office outpatient visit 10 minutes Sommer العراقي [facility] Start: 08-04-2020 End: 08-07-2020 Office outpatient visit 10 minutes Sommer العراقي [facility] Start: 07-17-2020 End: 07-17-2020 Office outpatient visit 15 minutes Sommer العراقي [facility] Start: 05-12-2020 End: 05-12-2020 Office outpatient visit 15 minutes Sommer العراقي [facility] Start: 03-15-2020 End: 03-15-2020 Office outpatient visit 10 minutes Sommer العراقي [facility] Start: 12-13-2019 End: 12-13-2019 Office outpatient visit 10 minutes Sommer العراقي [facility] Start: 11-29-2019 End: 11-29-2019 Office outpatient visit 15 minutes Sommer العراقي [facility] Start: 12-25-2017 End: 12-25-2017 Office outpatient visit 15 minutes Sommer العراقي [facility] Start: 11-18-2017 End: 11-18-2017 Office outpatient visit 15 minutes Sommer العراقي [facility] Start: 09-17-2017 End: 09-17-2017 Office outpatient visit 25 minutes Sommer Santizo Internal [facility] Start: 09-12-2017 End: 09-12-2017 Admission Note Sommer Santizo Complaint Coordinator al Medicine Start: 04-03-2017 End: 04-03-2017 Office outpatient visit 5 minutes Sommer Santizo [facility] Start: 03-27-2017 End: 03-27-2017 Office outpatient visit 15 minutes Sommer Santizo [facility] Start: 03-25-2017 End: 03-25-2017 Office outpatient visit 15 minutes Sommer Santizo [facility] Start: 03-17-2017 End: 03-17-2017 Office outpatient visit 5 minutes Sommer Santizo [facility] Start: 03-05-2017 End: 03-07-2017 Office outpatient visit 5 minutes Sommer Santizo [facility] Start: 02-21-2017 End: 02-21-2017 Office outpatient visit 15 minutes Sommer Santizo [facility] Start: 01-31-2017 End: 01-31-2017 Office outpatient visit 15 minutes Sommer Santizo [facility] Start: 12-26-2016 End: 12-26-2016 Office outpatient new 30 minutes Sommer Santizo Internal [facility] Procedures Date Procedure Procedure Detail Performing Clinician Start: 12-15-2024 CT angiography of coronary arteries Dr. Sommer العراقي DO Work Phone: Start: 08-01-2022 End: 08-01-2022 Urgent Care Visit Report Procedure Note: See Note; NOTES: [facility] [address] [place], [place] [id number] OFFICE VISIT Date of Service: 08/01/22 MR#: [id number] Acct: [id number] Name: SHEYLA LAWRENCE Rep #: [id number] : [id number] Provider: HAILEY white Age/Sex: 32/M Location: [facility] Status: Signed Intake Vital Signs 08/01/22 13:24 08/01/22 13:36 Height 5 ft 10 in BP 142/82 H Blood Pressure Location Lt brachial Position Sitting Respiration 14 Pulse 74 Pulse Source Monitor Temp 97.8 F Temp Source Temporal Pulse Oximetry (%) 98 Oxygen Delivery Method room air Intake Visit Reasons: COLD SYMPTOMS X 2WEEKS Chief Complaint: Sore throat, cough Allergies Pertussis Vaccines Allergy (Verified 02/20/22 10:48) Hives [facility] Medical History (Updated 08/01/22 @ 14:15 by HAILEY Pa) Acute bronchitis, unspecified Acute sinusitis, unspecified Anxiety History of back strain History of broken collarbone history of left shoulder repair Social History (Updated 08/19/19 @ 17:35 by HAILEY Pa) Smoking Status: Never smoker alcohol intake: current alcohol intake frequency: a few times a month HPI HPI Chief Complaint: Sore throat, cough Details: SHEYLA LAWRENCE, is a 32 M who presents to the office today for initial evaluation approximately 2- week history of progressively worsening forehead/facial pressure with purulent productive cough. New chills appreciated over the last 24 to 48 hours as well. No complaints of chest pressure/shortness of breath/dyspnea on exertion. Non-smoker. No close contacts with similar complaints. No [id number] products taken to assist. No other associated symptoms and no alleviating/aggravating factors. ROS Const Constitutional: No other (As above) Exam Const General: cooperative, healthy appearing and no acute distress Nutritional Appearance: average body habitus Orientation: alert, awake and oriented x3 HENMT Head: normal to inspection Ears: hearing grossly normal bilaterally, external ears normal, TM's normal bilaterally and EAC's normal Nose: external nose normal, nares normal, septum normal and no nasal discharge Face and sinus: normal facial exam, face symmetric and sinus tenderness frontal and maxillary Mouth: oral mucosae normal, lip normal, tongue normal and oropharynx normal Throat: posterior oropharynx normal, tonsils normal, uvula midline and no postnasal drainage Eyes General: appearance normal, both eyes and all related structures Neck Neck: normal visual inspection, full ROM, no meningeal signs, supple and lymphadenopathy (Bilateral anterior cervical lymph node swelling/tender to palpation) Neck mass: No Thyroid: thyroid normal Chest Chest palpation inspection: normal inspection of the chest Resp Effort Inspection: normal respiratory effort, able to speak in complete sentences and cough Quality of cough: wet (Nonproductive in office today.) Auscultation: Bilateral: Clear to Auscultation Cardio Palpation: normal PMI Rate: regular rate Rhythm: regular rhythm Heart Sounds: S1 normal, S2 normal, no gallops, no murmurs and no rubs Pulses: radial pulses present GI Inspection: normal to inspection Palpation: soft and no hepatosplenomegaly Skin General: no rashes or lesions noted Neuro General: patient alert, patient awake, patient oriented x3 and gait normal Cognition: normal cognition Speech: speech normal Gait: normal gait Motor: muscle tone normal throughout Sensory Exam: no sensory deficits noted Psych Appearance: grossly normal Mental Status: mental status grossly normal Mood: congruent mood Affect: normal affect Speech and Movement: speech and movement normal Attitude: cooperative Thought Process: normal Thought Content: normal Judgment: judgment good Coding Level of Care Code Off vis,est,level 3 Diagnoses Acute sinusitis, unspecified J01.90 Acute bronchitis, unspecified J20.9 Assessment and Plan Assessment and Plan (1) Acute sinusitis, unspecified: Status: Acute (2) Acute bronchitis, unspecified: Status: Acute Plan: Augmentin as prescribed today. Supportive measures as instructed today. Follow-up with PCP in 3 to 5 days should symptoms not improve, sooner should symptoms worsen or any other concerns develop. Patient states acknowledging understanding all the above. This note was generated with [employer] dictation software. It may contain incorrect words, spelling, and punctuation that were not noted in checking the note before signing. Medications: New amoxicillin-pot clavulanate 875-125 mg 1 TAB PO BID 20 tabs 0RF 08/01/22 1415 <Electronically signed by Efrain HART> Date Efrain HART Cosigner Signature: Date (if applicable) CC: Sommer العراقي DO Work Phone: Start: 09-13-2019 End: 09-13-2019 12 lead ECG Comments: See Note; NOTES: [facility] Cardiovascular Services [address] [place] [id number] 12 Lead EKG 09/11/19 0010 MR#: [id number] Acct: [id number] Name: SHEYLA LAWRENCE Rep #: [id number] : 1990 29 From: Jose D Allen MD Attending Dr: Status: DEP ER Ordering Dr: Denis Hitchcock DO Date: 09/11/19 Location: ED Sex: M C Admitted: Test Reason : DYSRHYTHMIA Blood Pressure : / mmHG Vent. Rate : 120 BPM Atrial Rate : 120 BPM P-R Int : 154 ms QRS Dur : 090 ms QT Int : 320 ms P-R-T Axes : 036 053 012 degrees QTc Int : 452 ms Sinus tachycardia Otherwise normal ECG Confirmed by ROLANDO QUEZADA, RAFI ([id number]), photography editor DEBORAH HOANG ([id number]) on 09/13/2019 1:50:20 PM Referred By: TL Confirmed By:KALYAN ALLEN MD 09/13/19 1350 Date Jose D Allen MD CC: Sommer العراقي DO; Denis Hitchcock Signed Sommer العراقي Start: 09-11-2019 End: 09-11-2019 Emergency Department Summary Comments: See Note; NOTES: [facility] Medical Records Department [address] [place] [id number] Emergency Department Summary 09/11/19 0002 MR#: [id number] Acct: [id number] Name: SHEYLA LAWRENCE Rep #: [id number] : 1990 29 From: Denis Joya PCP: Sommer العراقي DO Status: REG ER History of Present Illness Chief Complaint: Substance Abuse Informant: Patient Onset: Today Narrative: Patient brought by EMS from bar for palpitations after smoking for what is told a cigarette. This was at 11 PM. States he was drinking, states he smoked unfiltered cigarette for which he thought. Suddenly had palpitations racing heart and states feeling of impending doom. Nausea and vomiting. Denies any past medical history. Denies any illicit drug use. Allergy to pertussis. EMS EKG reviewed with sinus tachycardia in the 120s. Prior similar symptoms: No Past Medical History - Allergies and Home Meds Allergies/Adverse Reactions: Allergies PERTUSIS VAC Allergy (Uncoded 09/10/19 23:57) Hives Primary Care Physician: Sommer العراقي DO [Primary Care Provider] - Past Medical History: None Smoking Status: Never smoker Review of Systems General: Denies: Chills, Fever, Sweats Eyes: Denies: Visual changes - bilaterally, Diplopia ENT: Denies: Rhinorrhea, Sore throat Cardiovascular: Reports: Palpitations, Heart racing. Denies: Chest pain Respiratory: Denies: Dyspnea, Cough, Dyspnea on exertion Gastrointestinal: Reports: Nausea, Vomiting. Denies: Abdominal pain, Diarrhea, Melena, Hematochezia Genitourinary: Denies: Dysuria, Hematuria, Frequency Musculoskeletal: Denies: Back pain, Extremity Pain Skin: Denies: Rash, Wounds Neurological: Denies: Headache, Weakness, Numbness Physical Exam Vital Signs/Narrative: Vital Signs 09/10/19 23:54 98 F 127 H 20 H 142/76 H 97 Inital Vital Signs reviewed: Yes General: Well nourished, Well developed, - - Anxious, nontoxic, cooperative following commands. Head: Normocephalic, Atraumatic Eyes: Perrl, EOMI ENT: Moist mucous membranes, No rhinorrhea Neck: Supple, Nontender Cardiovascular: Regular rate, Regular rhythm, No murmurs, Tachycardia Respiratory: No distress, CTA bilaterally, Chest nontender Abdomen: Soft, Nontender, Nondistended, Normal bowel sounds Back: Nontender, Normal Inspection Extremities: Nontender, No edema Skin: Normal color, No rash Neurological: Alert, Oriented x3, Cranial nerves II-XII grossly intact, Normal Strength, Normal Sensation Psychological: Normal affect, Normal Mood Diagnostic/Tx/Re-eval - Medical Decision Making Patient's history I suspect drug ingestion with a stimulant causing his palpitations and tachycardia. He is anxious. IV is placed IV fluids, Ativan given. Did initially order for tox screen for further evaluation however unable to collect. He was monitored heart rate improved to the low 100s, clinically was improving. He is clinically stable. He is not suicidal homicidal. He will be discharged with outpatient follow-up. All questions were answered. ED Disposition - Plan for ED Patient: Disposition: Home or Assisted Living Diagnosis: Palpitations, likely drug inhalation Instructions: Palpitations Referrals: Sommer العراقي DO [Primary Care Provider] - 5-7 Days Additional Instructions: Suspect you smoked drug stimulant causing symptoms. What to do if you have Problems For any increased pain, shortness of breath, bleeding, nausea or vomiting, chest pain, or any unexpected problems, contact your Primary Care Provider. Call [facility] ([phone]) or report to the closest Emergency Room. Call 911 if necessary. 09/11/19 0241 <Electronically signed by Denis Joya> Date Denis Joya Cosigner Signature (If Indicated): Date CC: Sommer العراقي DO ADDENDUM by Denis Hitchcock on 09/11/19 at 0242 EKG: Sinus rate of 120, no ST or T wave changes. 09/11/19 0242 Date Denis Hitchcock DO cc: Sommer العراقي DO * Signed Sommer العراقي Start: 08-19-2019 End: 08-19-2019 Urgent Care Visit Report Comments: See Note; NOTES: [facility] [address] [place] [address] OFFICE VISIT Date of Service: 08/19/19 MR#: [id number] Acct: [id number] Name: SHEYLA LAWRENCE Scott Rep #: [id number] : 1990 Provider: Efrain HART Age/Sex: 29/M Location: [facility] Status: Signed Intake Vital Signs08/19/19 BMI 29.5 08/19/19 Height 5 ft 10 in 08/19/19 Weight: 206 lb 08/19/19 BMI 29.5 Intake Visit Reasons: cough, sore throat, headache Chief Complaint: Sore throat, cough 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 Accompanied by: SELF Is patient in pain?: No Allergies PERTUSIS VAC Allergy (Uncoded 08/19/19 17:14) Hives Medications citalopram 20 mg tablet 20 mg PO DAILY 03/19/18 [History Confirmed 07/02/19] [facility] Medical History Anxiety (Acute) History of back strain (Acute) History of broken collarbone (Acute) history of left shoulder repair (Acute) Social History (Updated 08/19/19 @ 17:35 by HAILEY Parrish) Smoking Status: Current every day smoker alcohol intake: current alcohol intake frequency: a few times a month HPI HPI Chief Complaint: Sore throat, cough Details: SHEYLA LAWRENCE, is a 29 M who presents to the office today for initial evaluation 2-day history of mild headache, myalgias, chills, intermittently dry and moist productive transudate of cough. Mild sore throat due to postnasal drip patient notes. No complaints of fever, sweats, rash, chest pressure/shortness of breath/wheeze, difficulty swallowing/drooling. Patient notes he is currently getting his house assessed for mold as both he and his have been sick several times over the last 2 to 3 years and is concerned this may be the culprit as he states. He is a non-smoker, noting no other members in household with similar complaints. He has taken no pyup-izj-[id number] products to assist with symptoms. He notes no other associated symptoms and no other alleviating or aggravating factors. ROS Const Constitutional: No other (ROS negative x14 other than as noted above) Exam Const General: cooperative, healthy appearing, comfortable, no acute distress Nutritional Appearance: well nourished Orientation: alert, awake, oriented x3 HENMT Head: normal to inspection Ears: hearing grossly normal bilaterally, external ears normal, TM's normal bilaterally, EAC's normal Nose: external nose normal, nares normal, septum normal, nasal discharge clear bilaterally Face and sinus: normal facial exam, sinuses nontender, face symmetric Mouth: oral mucosae normal, lip normal, tongue normal, oropharynx normal Teeth and gingiva: dentition normal, gingiva normal Throat: posterior oropharynx normal, tonsils normal, uvula midline, no postnasal drainage Eyes General: appearance normal, both eyes and all related structures Neck Neck: normal visual inspection, full ROM, no lymphadenopathy, no meningeal signs, supple Neck mass: No Thyroid: thyroid normal Lymphatic: no lymphadenopathy noted Chest Chest palpation AND inspection: normal inspection of the chest Resp Effort AND Inspection: normal respiratory effort, able to speak in complete sentences, symmetric chest movement, cough Quality of cough: dry Auscultation: Bilateral: Clear to Auscultation Cardio Palpation: normal PMI Rate: regular rate Rhythm: regular rhythm Heart Sounds: S1 normal, S2 normal, no gallops, no murmurs, no rubs Pulses: radial pulses present GI Inspection: normal to inspection Skin General: no rashes or lesions noted Neuro General: alert, awake, oriented x3, gait normal Cognition: normal cognition Speech: speech normal Gait: normal gait Motor: muscle tone normal throughout Sensory Exam: no sensory deficits noted Psych Appearance: grossly normal Mental Status: mental status grossly normal Mood: congruent mood Affect: normal affect Speech and Movement: speech and movement normal Attitude: cooperative Thought Process: normal Thought Content: normal Judgment: judgment good Results POC FLU A AND B Office Flu A AND B Negative FLU A AND B Last Edit by Kerry Doran on 08/19/19 17:34 Assessment AND Plan Problems 1. URI (upper respiratory infection) J06.9 Plan Rapid flu test today was negative. Clear fluids, rest, Advil/Tylenol/Claritin as needed for symptomatic relief. Follow-up with PCP in 5 to 7 days should symptoms not improve, sooner should symptoms worsen or any other concerns develop. Patient states acknowledging understanding all the above. This note was generated with [employer] dictation software. It may contain incorrect words, spelling, and punctuation that were not noted in checking the note before signing. Orders Orders: Coding Level of Care Code Off vis,est,level 3 Diagnoses URI (upper respiratory infection) J06.9 08/19/19 1668 <Electronically signed by Efrain HART> Date Efrain HART Cosigner Signature: Date (if applicable) CC: Sommer العراقي Start: 07-19-2019 End: 07-21-2019 Urgent Care Visit Report Comments: See Note; NOTES: [facility] [address] [place] [address] [address] [place] [address] OFFICE VISIT Date of Service: 07/19/19 MR#: [id number] Acct: [id number] Name: SHEYLA LAWRENCE Rep #: [id number] : 1990 Provider: Efrain HART Age/Sex: 28/M Location: [facility] Status: Signed Intake Vital Signs07/19/19 BMI 29.5 07/19/19 Height 5 ft 10 in 07/19/19 Weight: 206 lb 07/19/19 BMI 29.5 07/19/19 BP 148/98 H Intake Visit Reasons: SORE THROAT, COUGH Chief Complaint: Sore throat, cough Allergies PERTUSIS VAC Allergy (Uncoded 07/19/19 15:28) Hives Medications citalopram 20 mg tablet 20 mg PO DAILY 03/19/18 [History Confirmed 07/02/19] [facility] Medical History Anxiety (Acute) History of back strain (Acute) History of broken collarbone (Acute) history of left shoulder repair (Acute) Social History (Updated 07/19/19 @ 16:00 by HAILEY Parrish) Smoking Status: Current every day smoker alcohol intake: current alcohol intake frequency: a few times a month HPI HPI Chief Complaint: Sore throat, cough Details: SHEYLA LAWRENCE, is a 28 M who presents to the office today for initial evaluation 4-day history of sore throat, cough. Patient states he feels his throat is very uncomfortable particularly with swallowing, stating he recently removed a tonsillolith from the right tonsillar pillar and has had localized aching discomfort since. He notes no complaints of fever, chills, sweats, myalgias, headache, difficulty swallowing/drooling. He notes his cough is dry and nonproductive. He has taken no mlib-khg-[id number] products to assist with symptoms. He notes no other associated symptoms no other alleviating or aggravating factors. ROS Const Constitutional: No other (ROS negative x14 other than as noted above) Exam Const General: cooperative, healthy appearing, comfortable, no acute distress Nutritional Appearance: overweight Orientation: alert, awake, oriented x3 HENMT Head: normal to inspection Ears: hearing grossly normal bilaterally, external ears normal, TM's normal bilaterally, EAC's normal Nose: external nose normal, nares normal, septum normal, no nasal discharge Face and sinus: normal facial exam, sinuses nontender, face symmetric Mouth: oral mucosae normal, lip normal, tongue normal, oropharynx normal Teeth and gingiva: dentition normal, gingiva normal Throat: posterior oropharynx normal, uvula midline, abnormal tonsil bilaterally erythema (Rapid strep test today was negative); Negative for no exudates or no hypertrophy, no postnasal drainage Eyes General: appearance normal, both eyes and all related structures Neck Neck: normal visual inspection, full ROM, no lymphadenopathy, no meningeal signs, supple Neck mass: No Thyroid: thyroid normal Lymphatic: no lymphadenopathy noted Chest Chest palpation AND inspection: normal inspection of the chest Resp Effort AND Inspection: normal respiratory effort, able to speak in complete sentences, symmetric chest movement, no cough (No unsolicited cough appreciated during today's exam) Auscultation: Bilateral: Clear to Auscultation Cardio Palpation: normal PMI Rate: tachycardic Rhythm: regular rhythm Heart Sounds: S1 normal, S2 normal, no gallops, no murmurs, no rubs Pulses: radial pulses present GI Inspection: normal to inspection Palpation: soft, no hepatosplenomegaly Skin General: no rashes or lesions noted Neuro General: alert, awake, oriented x3, gait normal Cognition: normal cognition Speech: speech normal Gait: normal gait Motor: muscle tone normal throughout Sensory Exam: no sensory deficits noted Psych Appearance: grossly normal Mental Status: mental status grossly normal Mood: congruent mood Affect: normal affect Speech and Movement: speech and movement normal Attitude: cooperative Thought Process: normal Thought Content: normal Judgment: judgment good Results POC Rapid Strep A Office Rapid Strep A Negative Last Edit by John Hightower on 07/19/19 15:32 Assessment AND Plan Problems 1. Pharyngitis J02.9 Plan Rapid strep test today was negative therefore throat culture sent to lab for further evaluation. Clear fluids, rest, Advil/Tylenol as needed for symptomatic relief. Salt water gargles as needed. Follow-up with PCP in 5 to 7 days should symptoms not improve, ED sooner should symptoms worsen or other concerns develop. Patient states acknowledging understanding all the above. This note was generated with [employer] software. It may contain incorrect words, spelling, and punctuation that were not noted in checking the note before signing. Orders Orders: Coding Level of Care Code Off vis,est,level 3 Diagnoses Pharyngitis J02.9 07/19/19 1600 <Electronically signed by Efrain HART> Date Efrain HART Cosigner Signature: Date (if applicable) CC: Sommer Dulce Maria Start: 07-02-2019 End: 07-02-2019 Urgent Care Visit Report Comments: See Note; NOTES: [facility] [address] [place], [place] [id number] OFFICE VISIT Date of Service: 07/02/19 MR#: [id number] Acct: [id number] Name: MELINDASHEYLA M Rep #: [id number] : 1990 Provider: Corey HART Age/Sex: 28/M Location: [facility] Status: Signed Intake Vital Signs07/02/19 BMI 29.5 07/02/19 Height 5 ft 10 in 07/02/19 Weight: 206 lb 07/02/19 BMI 29.5 07/02/19 BP 132/84 H 07/02/19 Blood Pressure Location Lt brachial 07/02/19 Position Sitting Intake Visit Reasons: Strain Shoulder, Right MCTV Chief Complaint: BWC Allergies PERTUSIS VAC Allergy (Uncoded 07/02/19 07:47) Hives Medications citalopram 20 mg tablet 20 mg PO DAILY 03/19/18 [History Confirmed 07/02/19] amoxicillin 875 mg-potassium clavulanate 125 mg tablet 1 tab PO BID #20 tab 06/24/19 [Rx Confirmed 07/02/19] [facility] Medical History Anxiety (Acute) History of back strain (Acute) History of broken collarbone (Acute) history of left shoulder repair (Acute) Social History (Updated 07/02/19 @ 07:51 by HAILEY Davila) Smoking Status: Current every day smoker alcohol intake: current alcohol intake frequency: a few times a month HPI HPI Chief Complaint: [facility] Details: SHEYLA LAWRENCE, is a 28 M who presents to the office today for follow-up of a work-related injury which occurred on 06/25/2019. On that date the patient was diagnosed with right shoulder strain. Patient states today that most of his pain has resolved and claims a 1 out of 10 pain at worst. He denies any numbness, tingling or loss of range of motion to the right shoulder or arm. He has been using ibuprofen and a heating pad which does help with the ache. No other associated symptoms or alleviating/aggravating factors. ROS Const Constitutional: Positive for other (6 system ROS completed with pertinent findings in the HPI otherwise normal.) Exam Const General: cooperative, healthy appearing Resp Effort AND Inspection: normal respiratory effort Auscultation: Bilateral: Clear to Auscultation Cardio Palpation: normal PMI Rate: regular rate Rhythm: regular rhythm Skin General: no rashes or lesions noted Neuro General: alert, CN's II-XI intact bilaterally Extrem General: normal to inspection, full ROM, normal capillary refill, no joint enlargement Psych Appearance: grossly normal Mental Status: mental status grossly normal Assessment AND Plan Problems 1. Strain of right shoulder, initial encounter S46.795W Plan [employer] filled out releasing patient back to work today without restrictions. Patient advised he no longer needs to follow-up here unless he should have an exacerbation of symptoms or new concerns. Patient verbalized understanding and agreement with all the above. Coding Level of Care Code Off vis,est,level 3 Diagnoses Strain of right shoulder, initial encounter S46.530N Encounter type: initial encounter 07/02/19 0752 <Electronically signed by Corey HART> Date Corey HART Cosignpaty Signature: Date (if applicable) CC: Sommer العراقي Start: 06-25-2019 End: 06-25-2019 Urgent Care Visit Report Comments: See Note; NOTES: [facility] [address] [place] [address] [address] [place] [address] OFFICE VISIT Date of Service: 06/25/19 MR#: [id number] Acct: [id number] Name: SHEYLA LAWRENCE Rep #: [id number] : 1990 Provider: Corey HART Age/Sex: 28/M Location: [facility] Status: Signed Intake Vital Signs06/25/19 BMI 29.5 06/25/19 Height 5 ft 10 in Intake Visit Reasons: R SHOULDER Accompanied by: self Is patient in pain?: Yes (R shoulder) Pain scale (1-10): 4 Allergies PERTUSIS VAC Allergy (Uncoded 06/25/19 15:09) Hives Medications citalopram 20 mg tablet 20 mg PO DAILY 03/19/18 [History Confirmed 06/25/19] amoxicillin 875 mg-potassium clavulanate 125 mg tablet 1 tab PO BID #20 tab 06/24/19 [Rx Confirmed 06/25/19] [facility] Medical History Anxiety (Acute) History of back strain (Acute) History of broken collarbone (Acute) history of left shoulder repair (Acute) Social History (Updated 06/25/19 @ 15:39 by HAILEY Davila) Smoking Status: Current every day smoker alcohol intake: current alcohol intake frequency: a few times a month HPI HPI Details: SHEYLA LAWRENCE, is a 28 M who presents to the office today for complaint of right shoulder pain which started today while at work. Patient states that he was lifting his bladder up over his head to the top of his truck and started experiencing right shoulder pain and stiffness. Patient states that the shoulder pain travels up to the bottom of his right neck. He denies numbness, tingling or loss of range of motion. He has had no previous injuries to the shoulder. No other associated symptoms or alleviating/aggravating factors. ROS Const Constitutional: Positive for other (6 system ROS completed with pertinent findings in the HPI otherwise normal.) Exam Const General: cooperative, healthy appearing Neck Neck: full ROM, no lymphadenopathy Resp Effort AND Inspection: normal respiratory effort Auscultation: Bilateral: Clear to Auscultation Cardio Palpation: normal PMI Rate: regular rate Rhythm: regular rhythm Skin General: no rashes or lesions noted Neuro General: alert, CN's II-XI intact bilaterally Extrem General: full ROM, normal capillary refill, normal exam except as noted, no joint enlargement Other: Muscle spasm to palpation over the right trapezius with pain to the same. Patient able to touch the top of his head with a negative Apley scratch and crossarm test. Psych Appearance: grossly normal Mental Status: mental status grossly normal Assessment AND Plan Problems 1. Strain of right shoulder, initial encounter S46.911A Status Acute Plan First report of injury form and [employer] filled out releasing patient back to work today with restrictions of no lifting/pushing/pulling greater than 20 pounds with the right arm and no over shoulder height or below knee level work. Patient advised of symptomatic management techniques as well as range of motion stretches. Advised to follow-up here in 1 week for reevaluation or sooner should his symptoms worsen or he develop new concerns. Patient advised of potential red flags and when appropriate to report to the ED. Patient verbalized understanding and agreement with all the above. Coding Level of Care Code Off vis,est,level 3 Diagnoses Strain of right shoulder, initial encounter S46.919N Encounter type: initial encounter 06/25/19 7289 <Electronically signed by Corey HART> Date Corey HART Cosigner Signature: Date (if applicable) CC: Sommer العراقي Start: 06-24-2019 End: 06-24-2019 Urgent Care Visit Report Comments: See Note; NOTES: [facility] [address] [place] [address] [address] [place] [id number] OFFICE VISIT Date of Service: 06/24/19 MR#: [id number] Acct: [id number] Name: SHEYLA LAWRENCE Rep #: [id number] : 1990 Provider: Efrain HART Age/Sex: 28/M Location: [facility] Status: Signed Intake Vital Signs06/24/19 Height 5 ft 10 in 06/24/19 Weight: 206 lb 06/24/19 BMI 29.5 06/24/19 BP 134/88 H Intake Visit Reasons: Sinus infection Chief Complaint: sinus congestion and cough 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 Accompanied by: self Is patient in pain?: No Allergies PERTUSIS VAC Allergy (Uncoded 06/24/19 17:45) Hives Medications citalopram 20 mg tablet 20 mg PO DAILY 03/19/18 [History Confirmed 06/24/19] amoxicillin 875 mg-potassium clavulanate 125 mg tablet 1 tab PO BID #20 tab 06/24/19 [Rx Confirmed 06/24/19] PFSH Medical History Anxiety (Acute) History of back strain (Acute) History of broken collarbone (Acute) history of left shoulder repair (Acute) Social History (Updated 06/24/19 @ 17:52 by HAILEY Parrish) Smoking Status: Current every day smoker alcohol intake: current alcohol intake frequency: a few times a month HPI HPI Chief Complaint: sinus congestion and cough Details: SHEYLA LAWRENCE, is a 28 M who presents to the office today for initial evaluation approximate 1 week history progressive worsening facial pressure, postnasal drip, cough, chills. No complaints of fever, sweats, rash, chest pressure/shortness of breath/wheeze, difficulty swallowing/drooling. He is taken no [id number]-oczykot products to assist with symptoms. He notes no other associated symptoms no other alleviating or aggravating factors. ROS Const Constitutional: No other (ROS negative x14 other than as noted above) Exam Const General: cooperative, healthy appearing, comfortable, no acute distress Nutritional Appearance: average body habitus Orientation: alert, awake, oriented x3 HENMT Head: normal to inspection Ears: hearing grossly normal bilaterally, external ears normal, TM's normal bilaterally, EAC's normal Nose: external nose normal, nares normal, septum normal, no nasal discharge Face and sinus: normal facial exam, face symmetric, sinus tenderness frontal Teeth and gingiva: dentition normal, gingiva normal Throat: posterior oropharynx normal, tonsils normal, uvula midline, postnasal drainage (Scant purulent) Eyes General: appearance normal, both eyes and all related structures Neck Neck: normal visual inspection, full ROM, no lymphadenopathy, no meningeal signs, supple Neck mass: No Thyroid: thyroid normal Lymphatic: no lymphadenopathy noted Chest Chest palpation AND inspection: normal inspection of the chest Resp Effort AND Inspection: normal respiratory effort, able to speak in complete sentences, symmetric chest movement, cough Quality of cough: wet (Nonproductive in office today) Auscultation: Bilateral: Clear to Auscultation Cardio Palpation: normal PMI Rate: regular rate Rhythm: regular rhythm Heart Sounds: S1 normal, S2 normal, no gallops, no murmurs, no rubs Pulses: radial pulses present GI Inspection: normal to inspection Palpation: soft, no hepatosplenomegaly Skin General: no rashes or lesions noted Neuro General: alert, awake, oriented x3, gait normal Cognition: normal cognition Speech: speech normal Gait: normal gait Motor: muscle tone normal throughout Sensory Exam: no sensory deficits noted Psych Appearance: grossly normal Mental Status: mental status grossly normal Mood: congruent mood Affect: normal affect Speech and Movement: speech and movement normal Attitude: cooperative Thought Process: normal Thought Content: normal Judgment: judgment good Assessment AND Plan 1. Bronchitis J40 2. Acute sinusitis, unspecified J01.90 Plan Augmentin as prescribed today. Clear fluids, rest, Advil/Tylenol as needed for symptomatic relief. Avoid tobacco smoke exposure. Follow-up PCP in 3 to 5 days should symptoms not improve, sooner should symptoms worsen or any other concerns develop. Patient states acknowledging understanding all the above. This note was generated with [employer].comation software. It may contain incorrect words, spelling, and punctuation that were not noted in checking the note before signing. Plan Detail Other Medications New: Coding Level of Care Code Off vis,est,level 3 Diagnoses Bronchitis J40 Acute sinusitis, unspecified J01.90 06/24/19 5915 <Electronically signed by Efrain HART> Date Efrain HART Cosigner Signature: Date (if applicable) CC: Sommer العراقي Start: 03-26-2018 End: 03-26-2018 Urgent Care Visit Report Comments: See Note; NOTES: [facility] [address] [place] [address] OFFICE VISIT Date of Service: 03/26/18 MR#: [id number] Acct: [id number] Name: SHEYLA LAWRENCE Rep #: [id number] : 1990 Provider: Efrain HART Age/Sex: 27/M Location: [facility] Status: Signed Intake Vital Signs03/26/18 Height 5 ft 10 in 03/26/18 Weight: 206 lb 03/26/18 Body Mass Index (BMI) 29.5 03/26/18 Blood Pressure 112/70 Intake Visit Reasons: ANKLE SPRAIN 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 Accompanied by: self Is patient in pain?: Yes Allergies PERTUSIS VAC Allergy (Uncoded 03/26/18 08:16) Hives Medications citalopram 20 mg tablet 20 mg PO DAILY 03/19/18 [History Confirmed 03/26/18] [facility] Medical History Anxiety (Acute) History of back strain (Acute) History of broken collarbone (Acute) history of left shoulder repair (Acute) Social History Smoking Status: Current every day smoker alcohol intake: current alcohol intake frequency: a few times a month HPI HPI Details: SHEYLA LAWRENCE, is a 27 M who presents to the office today for follow-up status post left ankle/foot sprains. Patient notes since his last evaluation here at the clinic, he has been compliant with stirrup splint use as well as home range of motion exercises. He notes his symptoms are essentially resolved and would like to be released to return to work without restrictions at this time. He notes no locking or giving way of the same. He notes no other associated symptoms and no other alleviating or aggravating factors. ROS Const Constitutional: No other (ROS negative x10 other than as noted above) Exam Const General: cooperative, healthy appearing, no acute distress Nutritional Appearance: average body habitus Orientation: alert, awake, oriented x3 HENMT Head: normal to inspection, atraumatic, normocephalic Chest Chest palpation AND inspection: normal inspection of the chest Resp Effort AND Inspection: normal respiratory effort, able to speak in complete sentences, symmetric chest movement Cardio Rate: regular rate Pulses: radial pulses present, posterior tibial pulses present, dorsalis pedis pulses present Skin General: no rashes or lesions noted Neuro General: alert, awake, oriented x3, gait normal Cognition: normal cognition Speech: speech normal Gait: normal gait Motor: muscle tone normal throughout Sensory Exam: no sensory deficits noted Extrem General: normal to inspection, full ROM, normal capillary refill, no joint enlargement Psych Appearance: grossly normal Mental Status: mental status grossly normal Mood: congruent mood Affect: normal affect Speech and Movement: speech and movement normal Attitude: cooperative Thought Process: normal Thought Content: normal Judgment: judgment good Assessment AND Plan Problems 1. Left ankle sprain S93.402A 2. Sprain of left foot S93.602A Plan Released to return to work without restrictions at this time, recommending continuing home range of motion exercises as previously instructed for another month. Patient states acknowledging understanding all the above. This note was generated with [employer] dictation software. It may contain incorrect words, spelling, and punctuation that were not noted in checking the note before signing. Coding Level of Care Code Off vis,est,level 3 Diagnoses Left ankle sprain S93.402A Sprain of left foot S93.602A 03/26/18 0825 <Electronically signed by Efrain HART> Date Efrain HART [facility] Signature: Date (if applicable) CC: Sommer Dulce Maria Start: 03-19-2018 End: 03-23-2018 Ankle min 3 Views Comments: See Note; NOTES: [facility] Imaging Services [address] [place] [address] Ankle min 3 Views MR#: [id number] Acct: [id number] Name: SHEYLA LAWRENCE Rep #: [id number] : 1990 M 27 From: Claus Montero DO PCP: Sommer العراقي DO Status: REG CLI Study: Ankle min 3 Views Date of Exam: 03/19/18 Exam# [id number] Ordering Dr: Efrain Mueller STUDY: X-RAY - LEFT ANKLE REASON FOR EXAM: Male, 27 years old. Rolled ankle 2 days ago. Lateral bruising. TECHNIQUE: 3 view(s) of the ankle. COMPARISON: Left foot, March 19, 2018. FINDINGS: Normal visualized distal tibia and fibula. There are small bony densities along the medial aspect of the talus near the tip of the medial malleolus which appear well-corticated. Normal tibiotalar articulation and ankle mortise. Normal visualized talus and calcaneus. The visualized subtalar, talonavicular, calcaneocuboid and tarsal articulations are normal. Soft tissue swelling about the ankle. RAD/Ankle min 3 Views IMPRESSION: Soft tissue swelling of the ankle. There are small bony densities along the medial malleolus thought to represent secondary ossicles versus old evulsion fractures. The possibility of a current avulsion fracture cannot be completely ruled out. Electronically Signed: Claus Montero DO at 23:47 EDT Tel [phone], Service support , CC: Sommer العراقي DO; Efrain HART Assistant Branch Operations Manager: Signed [place] Work Phone: Start: 03-19-2018 End: 03-23-2018 Foot min 3 Views Comments: See Note; NOTES: [facility] Imaging Services [address] [place] [address] Foot min 3 Views MR#: [id number] Acct: [id number] Name: SHEYLA LAWRENCE Rep #: [id number] : 1990 M 27 From: Claus Montero DO PCP: Sommer العراقي DO Status: REG CLI Study: Foot min 3 Views Date of Exam: 03/19/18 Exam# [id number] Ordering Dr: Efrain Mueller STUDY: X-RAY - LEFT FOOT CLINICAL: Male, 27 years old. Rolled ankle 2 days ago. Lateral bruising. TECHNIQUE: view(s) of the foot. COMPARISON: None. FINDINGS: Normal talus, calcaneus, and tarsal bones. Normal visualized subtalar, talonavicular, calcaneocuboid, tarsal and tarsometatarsal articulations. Normal metatarsi. Normal metatarsophalangeal joint of the great toe. There is a bipartite fibula sesamoid. Normal interphalangeal joint of the great toe. Normal phalanges of the great toe. Normal second through fifth metatarsophalangeal joints. Normal interphalangeal joints and phalanges of the lesser toes. The soft tissue structures are unremarkable. RAD/Foot min 3 Views IMPRESSION: Normal x-ray examination of the foot. Electronically Signed: Claus Montero DO at 23:45 EDT Tel [phone], Service support , CC: Sommer العراقي DO; Efrain HART Assistant Branch Operations Manager: Signed [place] Work Phone: Operative procedure on shoulder Neda Baron Comment on above: lt 2011 Operative procedure on shoulder Calvin Hui JEREMY Comment on above: lt 2011 Shoulder Surgery Lashae pennington Comment on above: lt 2011 Shoulder Surgery Magno Silva s Comment on above: lt 2011 Shoulder Surgery Yessica Perez s Comment on above: 2011 Plan of Treatment Date Care Activity Detail Author Start: 03-28-2022 Procedure Education Eprescribed prescriptions (G8553) [facility] Work Phone: Start: 03-28-2022 Provider Instructions for Treatment [facility]; [facility] Work Phone: Start: 03-28-2022 Iadna chlamydia trachomatis amplified probe tq CHLAMYDIA BY URINE (41812) [facility]; [facility] Work Phone: Start: 03-28-2022 Iadna neisseria gonorrhoeae amplified probe tq GONORRHEA BY URINE (35000) [facility]; [facility] Work Phone: Start: 03-28-2022 Cyanocobalamin vitamin b-12 VITAMIN B-12 (CYANOCOBALAMIN) (52349) [facility]; [facility] Work Phone: Start: 03-28-2022 25 hydroxy includes fractions if performed CALCIFIDIOL (93198) VIT D 25 [facility]; [facility] Work Phone: Start: 03-28-2022 Urnls dip stick/tablet reagent auto microscopy URINALYSIS, W/ MICRO (09361) [facility]; [facility] Work Phone: Start: 03-28-2022 Urine albumin quantitative MICROALBUMIN: CREATININE RATIO (79157) AND (81838) [facility]; [facility] Work Phone: Start: 03-28-2022 Comprehensive metabolic panel METABOLIC PANEL, COMPREHENSIVE (47848) [facility]; [facility] Work Phone: Start: 03-28-2022 Lipid panel LIPID PANEL (89348) [facility]; [facility] Work Phone: Start: 03-28-2022 Blood count complete auto&auto difrntl wbc CBC W/AUTO DIFF WBC (77638) [facility]; [facility] Work Phone: Start: 09-18-2020 Provider Instructions for Treatment Continue Current Prescription(s) [facility]; [facility] Work Phone: Start: 08-04-2020 Procedure Education Eprescribed prescriptions (G8553) [facility]; [facility] Work Phone: Start: 08-04-2020 Provider Instructions for Treatment Follow up in 4 weeks [facility]; [facility] Work Phone: Start: 07-17-2020 Procedure Education Eprescribed prescriptions (G8553) [facility]; [facility] Work Phone: Start: 07-17-2020 Provider Instructions for Treatment [facility]; [facility] Work Phone: Start: 05-12-2020 Procedure Education Eprescribed prescriptions (G8553) [facility] Work Phone: Start: 05-12-2020 Provider Instructions for Treatment [facility] Work Phone: Start: 05-12-2020 TSH Qn TSH (13153) [facility] Work Phone: Start: 05-12-2020 Blood count complete auto&auto difrntl wbc CBC, Platelets & Auto Diff (98342) [facility] Work Phone: Start: 05-12-2020 Comprehensive metabolic panel Metabolic Panel, Comprehensive (63617) [facility] Work Phone: Start: 05-12-2020 25 hydroxy includes fractions if performed CALCIFEDIOL (75101) [facility] Work Phone: Start: 05-12-2020 Cobalamin (Vitamin B12) [Mass/Vol] VITAMIN B12 AND FOLATES (75048) [facility] Work Phone: Start: 03-15-2020 Procedure Education Eprescribed prescriptions (G8553) [facility] Work Phone: Start: 03-15-2020 Provider Instructions for Treatment [facility] Work Phone: Start: 12-13-2019 Provider Instructions for Treatment [facility] Work Phone: Start: 11-29-2019 Comprehensive metabolic panel METABOLIC PANEL, COMPREHENSIVE (04305) [facility] Work Phone: Start: 11-29-2019 Blood count complete auto&auto difrntl wbc CBC W/AUTO DIFF WBC (48982) [facility] Work Phone: Start: 11-29-2019 Lipid panel LIPID PANEL (53716) [facility] Work Phone: Start: 11-29-2019 Assay of thyroid stimulating hormone tsh TSH (81078) [facility]; [facility] Work Phone: Start: 11-29-2019 TSH Qn TSH (90233) [facility] Work Phone: Start: 11-29-2019 Cobalamin (Vitamin B12) [Mass/Vol] VITAMIN B-12 (CYANOCOBALAMIN) (21251) [facility] Work Phone: Start: 11-29-2019 Cyanocobalamin vitamin b-12 VITAMIN B-12 (CYANOCOBALAMIN) (22760) [facility]; [facility] Work Phone: Start: 11-29-2019 Procedure Education Eprescribed prescriptions (G8553) [facility] Work Phone: Start: 11-29-2019 Provider Instructions for Treatment [facility] Work Phone: Start: 12-25-2017 Patient Education Heartburn *: gerd [facility] Work Phone: Start: 12-25-2017 Provider Instructions for Treatment Follow up if no improvement or if symptoms worsen [facility] Work Phone: Start: 11-18-2017 Procedure Education Eprescribed prescriptions (G8553) [facility] Work Phone: Start: 11-18-2017 Provider Instructions for Treatment Follow up if no improvement or if symptoms worsen [facility] Work Phone: Start: 09-17-2017 Provider Instructions for Treatment Reviewed Lab [facility] Work Phone: Start: 03-27-2017 Patient Education Sinusitis *: sinus infection [facility] Work Phone: Start: 03-27-2017 Procedure Education Eprescribed prescriptions (G8553) [facility] Work Phone: Start: 03-27-2017 Provider Instructions for Treatment Follow up if no improvement or if symptoms worsen [facility] Work Phone: Start: 03-25-2017 Patient Education Flu (Influenza) *: flu shot [facility] Work Phone: Start: 03-25-2017 Procedure Education Eprescribed prescriptions (G8553) [facility] Work Phone: Start: 03-25-2017 Provider Instructions for Treatment Follow up if no improvement or if symptoms worsen [facility] Work Phone: Start: 01-31-2017 Patient Education Anxiety: emotional health [facility] Work Phone: Start: 12-26-2016 Provider Instructions for Treatment [facility] Work Phone: [facility] Work Phone: [facility] Work Phone: [facility] Work Phone: [facility] Work Phone: [facility] Work Phone[facility] Work Phone: [facility] Work Phone: [facility] Work Phone: [facility] Work Phone: [facility] Work Phone: Payers Date Payer Category Payer Self-pay 2024 Unknown [id number] 2017 Unknown [id number] 1990 Unknown [id number] Unknown Unknown [id number] Unknown AUBREY [id number] Unknown [id number] Unknown [id number] Social History Date Type Detail Facility Alcohol Use: Former smoker [facility] Work Phone: Caffeine Use [facility] Work Phone: Comment on above: did 1 mo ago none Exercise History: Does not exercise. [facility] Work Phone: Living Situation: Lives with spouse. [facility] Work Phone: Number of Child (age 0-17) Dependents: 2. [facility] Work Phone: Tobacco use: Former smoker. [facility] Work Phone: Comment on above: quit 4 yrs ago Alcohol Use: Alcohol Use: [facility] Work Phone: Exercise History: Exercise History: [facility]; [facility] Work Phone: [facility] Work Phone: Number of Child (age 0-17) Dependents: Number of Child (age 0-17) Dependents: [facility]; [facility] Work Phone: Tobacco use: Tobacco use: [facility]; [facility] Work Phone: Comment on above: quit 4 yrs ago Start: 08-01-2022 Tobacco smoking status NHIS Never smoked tobacco (finding) [facility] Start: 1990 Sex Assigned At Male W [facility] Radiology Diagnostic study note 12-15-2024 Note Date & Type Note Facility 12-15-2024 Radiology Diagnostic study note [facility] Imaging Services [address] [place] [address] Cardiac Only MR#: [id number] Acct: [id number] Name: SHEYLA LAWRENCE Rep #: [id number] : 1990 M 34 From: Guero Berg MD PCP: Dr. Sommer العراقي DO Status: RE Job LOPEZ Study:Limited Chest CT Cardiac Only Date of E xam: 12/15/24 Exam# [id number] Ordering Dr: Zari العراقي DO PROCEDURE: LIMITED CHEST CT CARDIAC ONLY 12/15/2024 REASON FOR EXAM: MIXED HYPERLIPIDEMIA TECHNIQUE: LIMITED CHEST CT CARDIAC ONLY One or more dose reduction techniques were used (e.g., Automated exposure control, adjustment of the mA and/or kV according to patient size, use of iterative reconstruction technique). RADIATION DOSE SUMMARY: CTDlvol: 12.19 mGy DLP: 219.42 mGycm COMPARISON: None FINDINGS: Mild right coronary artery calcification. The lungs are clear. Fatty infiltration of the liver. Small hiatal hernia. CT/Limited Chest CT Cardiac Only IMPRESSION: Mild degree of coronary artery calcification. Reading Location: [place] [address] CC: Dr. Sommer العراقي DO ~ Assistant Branch Operations Manager: Signed [facility] Radiology Diagnostic study note 12-15-2024 Note Date & Type Note Facility 12-15-2024 Radiology Diagnostic study note [facility] Imaging Services [address] [place] [address] 12/15/24 0946 MR#: [id number] Acct: [id number] Name: SHEYLA LAWRENCE Rep #:[id number] : 1990 34 From: Guillaume Alfaro MD PCP: Dr. Sommer العراقي DO Status:RE Job LOPEZ Y Location: CT Calcium Scoring Date of Study:: 12/15/24 Indications Indications: Hyperlipidemia Coronary Calcium Scoring: High-resolution Computed Tomographic imaging of the chest was performed on [12/15/2024], with particular attention paid to the coronary arteries. Images from the examination were analyzed for the presence and extent of coronary artery calcification , using coronary calcium quantification software. The patient tolerated the procedure well and there were no complications. The results of the coronary calcification analysis are provided below. Findings Coronary Artery Left Main (LM): 0 Left Anterior Descending (LAD): 0 Left Circumflex (LCX): 0 Right Coronary Artery (RCA): 0 Total Agatston Score: 0 Percentile Rankin% Calcium Scoring Interpretation: Different methods to categorize the overall amount of coronary plaque. Overall amount CAC SIS Visual of coronary plaque P1 Mild -100 <2 1-2 vessels with mild amount of plaque P2 Moderate 101-300 3-4 1-2 vessels with moderate amount, 3 vessels with mild amount of plaque P3 Severe 301-999 5-7 3 vessels with moderate amount, 1 vessel with severe amount of plaque P4 Extensive >1000 >8 2-3 vessels with severe amount of plaque Conclusion: No atherosclerotic plaque 12/15/24 0948 Date __ _ Guillaume Alfaro MD Cosigner Signature (if applicable): Date ____ CC: Dr. Guillaume Alfaro MD; Dr. Sommer العراقي, DO ~ Signed [facility] Work Phone: Evaluation note Note Date & Type Note Facility Evaluation note No assessment information availa ble [facility] Work Phone: Instructions Note Date & Type Note Facility Instructions Name Patient Instructions Indication:Non-smoker Start: Instruction Type:Provider Instructions for Treatment How to Access Health Information Online using Patient Portal and 3rd [employer] Apps Indication:Non-smoker Start: Instruction Type:Patient Education Patient Instructions Indication:Anxiety Start:04-Aug-2020 Instruction Type:Provider Instructions for Treatment How to Access Health Information Online using Patient Portal and 3rd [employer] Apps Indication:Anxiety Start:04-Aug-2020 Instruction Type:Patient Education Patient Instructions Indication:Non-smoker Start: Instruction Type:Provider Instructions for Treatment How to Access Health Information Online using Patient Portal and 3rd [employer] Apps Indication:Non-smoker Start: 1 Instruction Type:Patient Education How to access health information online Indication:BMI 31.0-31.9,adult Start: 0 Instruction Type:Patient Education How to access health information online - Detail Indication:BMI 31.0-31.9,adult Start: 0 Instruction Type:Patient Education Patient Instructions Indication:BMI 31.0-31.9,adult Start: 0 Instruction Type:Provider Instructions for Treatment How to access health information online Indication:Non-smoker Start: 0 Instruction Type:Patient Education How to access health information online - Detail Indication:Non-smoker Start: 0 Instruction Type:Patient Education Patient Instructions Indication:Non-smoker Start: 0 Instruction Type:Provider Instructions for Treatment How to access health information online - Detail Indication:Non-smoker Start: 0 Instruction Type:Patient Education How to access health information online Indication:Non-smoker Start: 0 Instruction Type:Patient Education Patient Instructions Indication:Non-smoker Start: 0 Instruction Type:Provider Instructions for Treatment How to access health information online Indication:BMI 32.0-32.9,adult Start:29-Nov-2019 Instruction Type:Patient Education How to access health information online - Detail Indication:BMI 32.0-32.9,adult Start:29-Nov-2019 Instruction Type:Patient Education Patient Instructions Indication:BMI 32.0-32.9,adult Start:29-Nov-2019 Instruction Type:Provider Instructions for Treatment How to access health information online Indication:Non-smoker Start: 8 Instruction Type:Patient Education How to access health information online - Detail Indication:Non-smoker Start: 8 Instruction Type:Patient Education Patient Instructions Indication:Acid reflux Start: 8 Instruction Type:Provider Instructions for Treatment How to access health information online Indication:Non-smoker Start: 8 Instruction Type:Patient Education How to access health information online - Detail Indication:Non-smoker Start: 8 Instruction Type:Patient Education Patient Instructions Indication:Sore throat Start: 8 Instruction Type:Provider Instructions for Treatment How to access health information online Indication:BMI 31.0-31.9,adult Start: 8 Instruction Type:Patient Education How to access health information online - Detail Indication:BMI 31.0-31.9,adult Start: 8 Instruction Type:Patient Education Patient Instructions Indication:BMI 31.0-31.9,adult Start: 8 Instruction Type:Provider Instructions for Treatment How to access health information online Indication:BMI 30.0-30.9,adult Start: 7 Instruction Type:Patient Education How to access health information online - Detail Indication:BMI 30.0-30.9,adult Start: 7 Instruction Type:Patient Education Patient Instructions Indication:BMI 30.0-30.9,adult Start: 7 Instruction Type:Provider Instructions for Treatment How to access health information online Indication:Non-smoker Start: Instruction Type:Patient Education How to access health information online - Detail Indication:Non-smoker Start: Instruction Type:Patient Education Patient Instructions Indication:Non-smoker Start: Instruction Type:Provider Instructions for Treatment How to access health information online Indication:Anxiety Start: Instruction Type:Patient Education How to access health information online - Detail Indication:Anxiety Start: Instruction Type:Patient Education Patient Instructions Indication:Anxiety Start: Instruction Type:Provider Instructions for Treatment How to access health information online Indication:Anxiety Start:31-Jan-2017 Instruction Type:Patient Education How to access health information online - Detail Indication:Anxiety Start:31-Jan-2017 Instruction Type:Patient Education Patient Instructions Indication:Anxiety Start:31-Jan-2017 Instruction Type:Provider Instructions for Treatment [facility]; [facility] Work Phone: Instructions Note Date & Type Note Facility Instructions Name Patient Instructions Indication:Non-smoker Start: Instruction Type:Provider Instructions for Treatment How to Access Health Information Online using Patient Portal and [employer]rd [employer] Apps Indication:Non-smoker Start: Instruction Type:Patient Education Patient Instructions Indication:Anxiety Start:04-Aug-2020 Instruction Type:Provider Instructions for Treatment How to Access Health Information Online using Patient Portal and [employer]rd [employer] Apps Indication:Anxiety Start:04-Aug-2020 Instruction Type:Patient Education Patient Instructions Indication:Non-smoker Start: Instruction Type:Provider Instructions for Treatment How to Access Health Information Online using Patient Portal and [employer]rd [employer] Apps Indication:Non-smoker Start: Instruction Type:Patient Education How to access health information online Indication:BMI 31.0-31.9,adult Start: 0 Instruction Type:Patient Education How to access health information online - Detail Indication:BMI 31.0-31.9,adult Start: 0 Instruction Type:Patient Education Patient Instructions Indication:BMI 31.0-31.9,adult Start: 0 Instruction Type:Provider Instructions for Treatment How to access health information online Indication:Non-smoker Start: 0 Instruction Type:Patient Education How to access health information online - Detail Indication:Non-smoker Start: 0 Instruction Type:Patient Education Patient Instructions Indication:Non-smoker Start: 0 Instruction Type:Provider Instructions for Treatment How to access health information online - Detail Indication:Non-smoker Start: 0 Instruction Type:Patient Education How to access health information online Indication:Non-smoker Start: 0 Instruction Type:Patient Education Patient Instructions Indication:Non-smoker Start: 0 Instruction Type:Provider Instructions for Treatment How to access health information online Indication:BMI 32.0-32.9,adult Start:29-Nov-2019 Instruction Type:Patient Education How to access health information online - Detail Indication:BMI 32.0-32.9,adult Start:29-Nov-2019 Instruction Type:Patient Education Patient Instructions Indication:BMI 32.0-32.9,adult Start:29-Nov-2019 Instruction Type:Provider Instructions for Treatment How to access health information online Indication:Non-smoker Start: 8 Instruction Type:Patient Education How to access health information online - Detail Indication:Non-smoker Start: 8 Instruction Type:Patient Education Patient Instructions Indication:Acid reflux Start: 8 Instruction Type:Provider Instructions for Treatment How to access health information online Indication:Non-smoker Start: Instruction Type:Patient Education How to access health information online - Detail Indication:Non-smoker Start: Instruction Type:Patient Education Patient Instructions Indication:Sore throat Start: 8 Instruction Type:Provider Instructions for Treatment How to access health information online Indication:BMI 31.0-31.9,adult Start: 8 Instruction Type:Patient Education How to access health information online - Detail Indication:BMI 31.0-31.9,adult Start: 8 Instruction Type:Patient Education Patient Instructions Indication:BMI 31.0-31.9,adult Start: 8 Instruction Type:Provider Instructions for Treatment How to access health information online Indication:BMI 30.0-30.9,adult Start: 7 Instruction Type:Patient Education How to access health information online - Detail Indication:BMI 30.0-30.9,adult Start: 7 Instruction Type:Patient Education Patient Instructions Indication:BMI 30.0-30.9,adult Start: 7 Instruction Type:Provider Instructions for Treatment How to access health information online Indication:Non-smoker Start: Instruction Type:Patient Education How to access health information online - Detail Indication:Non-smoker Start: Instruction Type:Patient Education Patient Instructions Indication:Non-smoker Start: Instruction Type:Provider Instructions for Treatment How to access health information online Indication:Anxiety Start: Instruction Type:Patient Education How to access health information online - Detail Indication:Anxiety Start: Instruction Type:Patient Education Patient Instructions Indication:Anxiety Start: Instruction Type:Provider Instructions for Treatment How to access health information online Indication:Anxiety Start:31-Jan-2017 Instruction Type:Patient Education How to access health information online - Detail Indication:Anxiety Start:31-Jan-2017 Instruction Type:Patient Education Patient Instructions Indication:Anxiety Start:31-Jan-2017 Instruction Type:Provider Instructions for Treatment [facility]; [facility] Work Phone: Instructions Note Date & Type Note Facility Instructions Name Patient Instructions Indication:Non-smoker Start: Instruction Type:Provider Instructions for Treatment How to Access Health Information Online using Patient Portal and [employer]rd [employer] Apps Indication:Non-smoker Start: Instruction Type:Patient Education Patient Instructions Indication:Anxiety Start:04-Aug-2020 Instruction Type:Provider Instructions for Treatment How to Access Health Information Online using Patient Portal and [employer]rd [employer] Apps Indication:Anxiety Start:04-Aug-2020 Instruction Type:Patient Education Patient Instructions Indication:Non-smoker Start: Instruction Type:Provider Instructions for Treatment How to Access Health Information Online using Patient Portal and [employer]rd [employer] Apps Indication:Non-smoker Start: Instruction Type:Patient Education How to access health information online Indication:BMI 31.0-31.9,adult Start: 0 Instruction Type:Patient Education How to access health information online - Detail Indication:BMI 31.0-31.9,adult Start: 0 Instruction Type:Patient Education Patient Instructions Indication:BMI 31.0-31.9,adult Start: 0 Instruction Type:Provider Instructions for Treatment How to access health information online Indication:Non-smoker Start: 0 Instruction Type:Patient Education How to access health information online - Detail Indication:Non-smoker Start: 0 Instruction Type:Patient Education Patient Instructions Indication:Non-smoker Start: 0 Instruction Type:Provider Instructions for Treatment How to access health information online - Detail Indication:Non-smoker Start: 0 Instruction Type:Patient Education How to access health information online Indication:Non-smoker Start: 0 Instruction Type:Patient Education Patient Instructions Indication:Non-smoker Start: 0 Instruction Type:Provider Instructions for Treatment How to access health information online Indication:BMI 32.0-32.9,adult Start:29-Nov-2019 Instruction Type:Patient Education How to access health information online - Detail Indication:BMI 32.0-32.9,adult Start:29-Nov-2019 Instruction Type:Patient Education Patient Instructions Indication:BMI 32.0-32.9,adult Start:29-Nov-2019 Instruction Type:Provider Instructions for Treatment How to access health information online Indication:Non-smoker Start: 8 Instruction Type:Patient Education How to access health information online - Detail Indication:Non-smoker Start: Instruction Type:Patient Education Patient Instructions Indication:Acid reflux Start: Instruction Type:Provider Instructions for Treatment How to access health information online Indication:Non-smoker Start: Instruction Type:Patient Education How to access health information online - Detail Indication:Non-smoker Start: Instruction Type:Patient Education Patient Instructions Indication:Sore throat Start: Instruction Type:Provider Instructions for Treatment How to access health information online Indication:BMI 31.0-31.9,adult Start: Instruction Type:Patient Education How to access health information online - Detail Indication:BMI 31.0-31.9,adult Start: Instruction Type:Patient Education Patient Instructions Indication:BMI 31.0-31.9,adult Start: Instruction Type:Provider Instructions for Treatment How to access health information online Indication:BMI 30.0-30.9,adult Start: 7 Instruction Type:Patient Education How to access health information online - Detail Indication:BMI 30.0-30.9,adult Start: Instruction Type:Patient Education Patient Instructions Indication:BMI 30.0-30.9,adult Start: Instruction Type:Provider Instructions for Treatment How to access health information online Indication:Non-smoker Start: Instruction Type:Patient Education How to access health information online - Detail Indication:Non-smoker Start: Instruction Type:Patient Education Patient Instructions Indication:Non-smoker Start: Instruction Type:Provider Instructions for Treatment How to access health information online Indication:Anxiety Start: Instruction Type:Patient Education How to access health information online - Detail Indication:Anxiety Start: Instruction Type:Patient Education Patient Instructions Indication:Anxiety Start: Instruction Type:Provider Instructions for Treatment How to access health information online Indication:Anxiety Start:31-Jan-2017 Instruction Type:Patient Education How to access health information online - Detail Indication:Anxiety Start:31-Jan-2017 Instruction Type:Patient Education Patient Instructions Indication:Anxiety Start:31-Jan-2017 Instruction Type:Provider Instructions for Treatment [facility]; [facility] Work Phone: Instructions Note Date & Type Note Facility Instructions Name Patient Instructions Indication:Screen for STD (sexually transmitted disease) Start: 2 Instruction Type:Provider Instructions for Treatment How to Access Health Information Online using Patient Portal and [employer]rd [employer] Apps Indication:BMI 33.0-33.9,adult Start: 2 Instruction Type:Patient Education Patient Instructions Indication:Non-smoker Start: Instruction Type:Provider Instructions for Treatment How to Access Health Information Online using Patient Portal and [employer]rd [employer] Apps Indication:Non-smoker Start: Instruction Type:Patient Education Patient Instructions Indication:Anxiety Start:04-Aug-2020 Instruction Type:Provider Instructions for Treatment How to Access Health Information Online using Patient Portal and [employer]rd [employer] Apps Indication:Anxiety Start:04-Aug-2020 Instruction Type:Patient Education Patient Instructions Indication:Non-smoker Start: 1 Instruction Type:Provider Instructions for Treatment How to Access Health Information Online using Patient Portal and [employer]rd [employer] Apps Indication:Non-smoker Start: 1 Instruction Type:Patient Education How to access health information online Indication:BMI 31.0-31.9,adult Start: 0 Instruction Type:Patient Education How to access health information online - Detail Indication:BMI 31.0-31.9,adult Start: 0 Instruction Type:Patient Education Patient Instructions Indication:BMI 31.0-31.9,adult Start: 0 Instruction Type:Provider Instructions for Treatment How to access health information online Indication:Non-smoker Start: 0 Instruction Type:Patient Education How to access health information online - Detail Indication:Non-smoker Start: 0 Instruction Type:Patient Education Patient Instructions Indication:Non-smoker Start: 0 Instruction Type:Provider Instructions for Treatment How to access health information online - Detail Indication:Non-smoker Start: 0 Instruction Type:Patient Education How to access health information online Indication:Non-smoker Start: 0 Instruction Type:Patient Education Patient Instructions Indication:Non-smoker Start: 0 Instruction Type:Provider Instructions for Treatment How to access health information online Indication:BMI 32.0-32.9,adult Start:29-Nov-2019 Instruction Type:Patient Education How to access health information online - Detail Indication:BMI 32.0-32.9,adult Start:29-Nov-2019 Instruction Type:Patient Education Patient Instructions Indication:BMI 32.0-32.9,adult Start:29-Nov-2019 Instruction Type:Provider Instructions for Treatment How to access health information online Indication:Non-smoker Start: 8 Instruction Type:Patient Education How to access health information online - Detail Indication:Non-smoker Start: 8 Instruction Type:Patient Education Patient Instructions Indication:Acid reflux Start: 8 Instruction Type:Provider Instructions for Treatment How to access health information online Indication:Non-smoker Start: 8 Instruction Type:Patient Education How to access health information online - Detail Indication:Non-smoker Start: 8 Instruction Type:Patient Education Patient Instructions Indication:Sore throat Start: 8 Instruction Type:Provider Instructions for Treatment How to access health information online Indication:BMI 31.0-31.9,adult Start: 8 Instruction Type:Patient Education How to access health information online - Detail Indication:BMI 31.0-31.9,adult Start: 8 Instruction Type:Patient Education Patient Instructions Indication:BMI 31.0-31.9,adult Start: 8 Instruction Type:Provider Instructions for Treatment How to access health information online Indication:BMI 30.0-30.9,adult Start: 7 Instruction Type:Patient Education How to access health information online - Detail Indication:BMI 30.0-30.9,adult Start: 7 Instruction Type:Patient Education Patient Instructions Indication:BMI 30.0-30.9,adult Start: 7 Instruction Type:Provider Instructions for Treatment How to access health information online Indication:Non-smoker Start: 7 Instruction Type:Patient Education How to access health information online - Detail Indication:Non-smoker Start: 7 Instruction Type:Patient Education Patient Instructions Indication:Non-smoker Start: 7 Instruction Type:Provider Instructions for Treatment How to access health information online Indication:Anxiety Start: 7 Instruction Type:Patient Education How to access health information online - Detail Indication:Anxiety Start: Instruction Type:Patient Education Patient Instructions Indication:Anxiety Start: Instruction Type:Provider Instructions for Treatment How to access health information online Indication:Anxiety Start:31-Jan-2017 Instruction Type:Patient Education How to access health information online - Detail Indication:Anxiety Start:31-Jan-2017 Instruction Type:Patient Education Patient Instructions Indication:Anxiety Start:31-Jan-2017 Instruction Type:Provider Instructions for Treatment [facility]; [facility] Work Phone: Instructions Note Date & Type Note Facility Instructions Name Patient Instructions Indication:Screen for STD (sexually transmitted disease) Start: 2 Instruction Type:Provider Instructions for Treatment How to Access Health Information Online using Patient Portal and [employer]rd [employer] Apps Indication:BMI 33.0-33.9,adult Start: 2 Instruction Type:Patient Education Patient Instructions Indication:Non-smoker Start: Instruction Type:Provider Instructions for Treatment How to Access Health Information Online using Patient Portal and [employer]rd [employer] Apps Indication:Non-smoker Start: Instruction Type:Patient Education Patient Instructions Indication:Anxiety Start:04-Aug-2020 Instruction Type:Provider Instructions for Treatment How to Access Health Information Online using Patient Portal and [employer]rd [employer] Apps Indication:Anxiety Start:04-Aug-2020 Instruction Type:Patient Education Patient Instructions Indication:Non-smoker Start: Instruction Type:Provider Instructions for Treatment How to Access Health Information Online using Patient Portal and [employer]rd [employer] Apps Indication:Non-smoker Start: 1 Instruction Type:Patient Education How to access health information online Indication:BMI 31.0-31.9,adult Start: 0 Instruction Type:Patient Education How to access health information online - Detail Indication:BMI 31.0-31.9,adult Start: 0 Instruction Type:Patient Education Patient Instructions Indication:BMI 31.0-31.9,adult Start: 0 Instruction Type:Provider Instructions for Treatment How to access health information online Indication:Non-smoker Start: 0 Instruction Type:Patient Education How to access health information online - Detail Indication:Non-smoker Start: 0 Instruction Type:Patient Education Patient Instructions Indication:Non-smoker Start: 0 Instruction Type:Provider Instructions for Treatment How to access health information online - Detail Indication:Non-smoker Start: 0 Instruction Type:Patient Education How to access health information online Indication:Non-smoker Start: 0 Instruction Type:Patient Education Patient Instructions Indication:Non-smoker Start: 0 Instruction Type:Provider Instructions for Treatment How to access health information online Indication:BMI 32.0-32.9,adult Start:29-Nov-2019 Instruction Type:Patient Education How to access health information online - Detail Indication:BMI 32.0-32.9,adult Start:29-Nov-2019 Instruction Type:Patient Education Patient Instructions Indication:BMI 32.0-32.9,adult Start:29-Nov-2019 Instruction Type:Provider Instructions for Treatment How to access health information online Indication:Non-smoker Start: 8 Instruction Type:Patient Education How to access health information online - Detail Indication:Non-smoker Start: 8 Instruction Type:Patient Education Patient Instructions Indication:Acid reflux Start: 8 Instruction Type:Provider Instructions for Treatment How to access health information online Indication:Non-smoker Start: 8 Instruction Type:Patient Education How to access health information online - Detail Indication:Non-smoker Start: 8 Instruction Type:Patient Education Patient Instructions Indication:Sore throat Start: 8 Instruction Type:Provider Instructions for Treatment How to access health information online Indication:BMI 31.0-31.9,adult Start: 8 Instruction Type:Patient Education How to access health information online - Detail Indication:BMI 31.0-31.9,adult Start: 8 Instruction Type:Patient Education Patient Instructions Indication:BMI 31.0-31.9,adult Start: 8 Instruction Type:Provider Instructions for Treatment How to access health information online Indication:BMI 30.0-30.9,adult Start: 7 Instruction Type:Patient Education How to access health information online - Detail Indication:BMI 30.0-30.9,adult Start:28-Sep-201 7 Instruction Type:Patient Education Patient Instructions Indication:BMI 30.0-30.9,adult Start: Instruction Type:Provider Instructions for Treatment How to access health information online Indication:Non-smoker Start: Instruction Type:Patient Education How to access health information online - Detail Indication:Non-smoker Start: Instruction Type:Patient Education Patient Instructions Indication:Non-smoker Start: Instruction Type:Provider Instructions for Treatment How to access health information online Indication:Anxiety Start: Instruction Type:Patient Education How to access health information online - Detail Indication:Anxiety Start: Instruction Type:Patient Education Patient Instructions Indication:Anxiety Start: Instruction Type:Provider Instructions for Treatment How to access health information online Indication:Anxiety Start:31-Jan-2017 Instruction Type:Patient Education How to access health information online - Detail Indication:Anxiety Start:31-Jan-2017 Instruction Type:Patient Education Patient Instructions Indication:Anxiety Start:31-Jan-2017 Instruction Type:Provider Instructions for Treatment [facility]; [facility] Work Phone: Instructions Note Date & Type Note Facility Instructions Name Patient Instructions Indication:Screen for STD (sexually transmitted disease) Start: 2 Instruction Type:Provider Instructions for Treatment How to Access Health Information Online using Patient Portal and [employer]rd [employer] Apps Indication:BMI 33.0-33.9,adult Start: 2 Instruction Type:Patient Education Patient Instructions Indication:Non-smoker Start: Instruction Type:Provider Instructions for Treatment How to Access Health Information Online using Patient Portal and [employer]rd [employer] Apps Indication:Non-smoker Start: Instruction Type:Patient Education Patient Instructions Indication:Anxiety Start:04-Aug-2020 Instruction Type:Provider Instructions for Treatment How to Access Health Information Online using Patient Portal and [employer]rd [employer] Apps Indication:Anxiety Start:04-Aug-2020 Instruction Type:Patient Education Patient Instructions Indication:Non-smoker Start: Instruction Type:Provider Instructions for Treatment How to Access Health Information Online using Patient Portal and [employer]rd [employer] Apps Indication:Non-smoker Start: Instruction Type:Patient Education How to access health information online Indication:BMI 31.0-31.9,adult Start: 0 Instruction Type:Patient Education How to access health information online - Detail Indication:BMI 31.0-31.9,adult Start: 0 Instruction Type:Patient Education Patient Instructions Indication:BMI 31.0-31.9,adult Start: 0 Instruction Type:Provider Instructions for Treatment How to access health information online Indication:Non-smoker Start: 0 Instruction Type:Patient Education How to access health information online - Detail Indication:Non-smoker Start: 0 Instruction Type:Patient Education Patient Instructions Indication:Non-smoker Start: 0 Instruction Type:Provider Instructions for Treatment How to access health information online - Detail Indication:Non-smoker Start: 0 Instruction Type:Patient Education How to access health information online Indication:Non-smoker Start: 0 Instruction Type:Patient Education Patient Instructions Indication:Non-smoker Start: 0 Instruction Type:Provider Instructions for Treatment How to access health information online Indication:BMI 32.0-32.9,adult Start:29-Nov-2019 Instruction Type:Patient Education How to access health information online - Detail Indication:BMI 32.0-32.9,adult Start:29-Nov-2019 Instruction Type:Patient Education Patient Instructions Indication:BMI 32.0-32.9,adult Start:29-Nov-2019 Instruction Type:Provider Instructions for Treatment How to access health information online Indication:Non-smoker Start: 8 Instruction Type:Patient Education How to access health information online - Detail Indication:Non-smoker Start: 8 Instruction Type:Patient Education Patient Instructions Indication:Acid reflux Start: 8 Instruction Type:Provider Instructions for Treatment How to access health information online Indication:Non-smoker Start: 8 Instruction Type:Patient Education How to access health information online - Detail Indication:Non-smoker Start: 8 Instruction Type:Patient Education Patient Instructions Indication:Sore throat Start: 8 Instruction Type:Provider Instructions for Treatment How to access health information online Indication:BMI 31.0-31.9,adult Start: 8 Instruction Type:Patient Education How to access health information online - Detail Indication:BMI 31.0-31.9,adult Start: Instruction Type:Patient Education Patient Instructions Indication:BMI 31.0-31.9,adult Start: Instruction Type:Provider Instructions for Treatment How to access health information online Indication:BMI 30.0-30.9,adult Start: Instruction Type:Patient Education How to access health information online - Detail Indication:BMI 30.0-30.9,adult Start: Instruction Type:Patient Education Patient Instructions Indication:BMI 30.0-30.9,adult Start: Instruction Type:Provider Instructions for Treatment How to access health information online Indication:Non-smoker Start: Instruction Type:Patient Education How to access health information online - Detail Indication:Non-smoker Start: Instruction Type:Patient Education Patient Instructions Indication:Non-smoker Start: Instruction Type:Provider Instructions for Treatment How to access health information online Indication:Anxiety Start: Instruction Type:Patient Education How to access health information online - Detail Indication:Anxiety Start: Instruction Type:Patient Education Patient Instructions Indication:Anxiety Start: Instruction Type:Provider Instructions for Treatment How to access health information online Indication:Anxiety Start:31-Jan-2017 Instruction Type:Patient Education How to access health information online - Detail Indication:Anxiety Start:31-Jan-2017 Instruction Type:Patient Education Patient Instructions Indication:Anxiety Start:31-Jan-2017 Instruction Type:Provider Instructions for Treatment [facility] Work Phone: Reason for referral (narrative) Note Date & Type Note Facility Reason for referral (narrative) No reason for referral information available [facility] Work Phone: Instructions Name Dates Details Non-smoker : How to access h ealth information online Indication:Non-smoker Non-smoker : How to access h ealth information online - Detail Indication:Non-smoker Acid reflux : Patient Instru ctions Indication:Acid reflux Sore throat : Patient Instru ctions Indication:Sore throat BMI 31.0-31.9,adult : How to access health information online Indication:BMI 31.0-31.9,adult BMI 31.0-31.9,adult : How to access health information online - Detail Indication:BMI 31.0-31.9,adult BMI 31.0-31.9,adult : Patien t Instructions Indication:BMI 31.0-31.9,adult BMI 30.0-30.9,adult : How to access health information online Indication:BMI 30.0-30.9,adult BMI 30.0-30.9,adult : How to access health information online - Detail Indication:BMI 30.0-30.9,adult BMI 30.0-30.9,adult : Patien t Instructions Indication:BMI 30.0-30.9,adult Non-smoker : Patient Instruc tions Indication:Non-smoker Anxiety : How to access heal th information online Indication:Anxiety Anxiety : How to access heal th information online - Detail Indication:Anxiety Anxiety : Patient Instructio ns Indication:Anxiety Name Dates Details Non-smoker : How to access h ealth information online Indication:Non-smoker Non-smoker : How to access h ealth information online - Detail Indication:Non-smoker Acid reflux : Patient Instru ctions Indication:Acid reflux Sore throat : Patient Instru ctions Indication:Sore throat BMI 31.0-31.9,adult : How to access health information online Indication:BMI 31.0-31.9,adult BMI 31.0-31.9,adult : How to access health information online - Detail Indication:BMI 31.0-31.9,adult BMI 31.0-31.9,adult : Patien t Instructions Indication:BMI 31.0-31.9,adult BMI 30.0-30.9,adult : How to access health information online Indication:BMI 30.0-30.9,adult BMI 30.0-30.9,adult : How to access health information online - Detail Indication:BMI 30.0-30.9,adult BMI 30.0-30.9,adult : Patien t Instructions Indication:BMI 30.0-30.9,adult Non-smoker : Patient Instruc tions Indication:Non-smoker Anxiety : How to access heal th information online Indication:Anxiety Anxiety : How to access heal th information online - Detail Indication:Anxiety Anxiety : Patient Instructio ns Indication:Anxiety Name Dates Details How to access health informa tion online Indication:BMI 31.0-31.9,adult Start:12-May-2020 Instruction Type:Patient Education How to access health informa tion online - Detail Indication:BMI 31.0-31.9,adult Start:12-May-2020 Instruction Type:Patient Education Patient Instructions Indication:BMI 31.0-31.9,adult Start:12-May-2020 Instruction Type:Provider Instructions for Treatment How to access health informa tion online Indication:Non-smoker Start:15-Mar-2020 Instruction Type:Patient Education How to access health informa tion online - Detail Indication:Non-smoker Start:15-Mar-2020 Instruction Type:Patient Education Patient Instructions Indication:Non-smoker Start:15-Mar-2020 Instruction Type:Provider Instructions for Treatment How to access health informa tion online - Detail Indication:Non-smoker Start:13-Dec-2019 Instruction Type:Patient Education How to access health informa tion online Indication:Non-smoker Start:13-Dec-2019 Instruction Type:Patient Education Patient Instructions Indication:Non-smoker Start:13-Dec-2019 Instruction Type:Provider Instructions for Treatment How to access health informa tion online Indication:BMI 32.0-32.9,adult Start:29-Nov-2019 Instruction Type:Patient Education How to access health informa tion online - Detail Indication:BMI 32.0-32.9,adult Start:29-Nov-2019 Instruction Type:Patient Education Patient Instructions Indication:BMI 32.0-32.9,adult Start:29-Nov-2019 Instruction Type:Provider Instructions for Treatment How to access health informa tion online Indication:Non-smoker Start:25-Dec-2017 Instruction Type:Patient Education How to access health informa tion online - Detail Indication:Non-smoker Start:25-Dec-2017 Instruction Type:Patient Education Patient Instructions Indication:Acid reflux Start:25-Dec-2017 Instruction Type:Provider Instructions for Treatment How to access health informa tion online Indication:Non-smoker Start:18-Nov-2017 Instruction Type:Patient Education How to access health informa tion online - Detail Indication:Non-smoker Start:18-Nov-2017 Instruction Type:Patient Education Patient Instructions Indication:Sore throat Start:18-Nov-2017 Instruction Type:Provider Instructions for Treatment How to access health informa tion online Indication:BMI 31.0-31.9,adult Start:17-Sep-2017 Instruction Type:Patient Education How to access health informa tion online - Detail Indication:BMI 31.0-31.9,adult Start:17-Sep-2017 Instruction Type:Patient Education Patient Instructions Indication:BMI 31.0-31.9,adult Start:17-Sep-2017 Instruction Type:Provider Instructions for Treatment How to access health informa tion online Indication:BMI 30.0-30.9,adult Start:27-Mar-2017 Instruction Type:Patient Education How to access health informa tion online - Detail Indication:BMI 30.0-30.9,adult Start:27-Mar-2017 Instruction Type:Patient Education Patient Instructions Indication:BMI 30.0-30.9,adult Start:27-Mar-2017 Instruction Type:Provider Instructions for Treatment How to access health informa tion online Indication:Non-smoker Start:25-Mar-2017 Instruction Type:Patient Education How to access health informa tion online - Detail Indication:Non-smoker Start:25-Mar-2017 Instruction Type:Patient Education Patient Instructions Indication:Non-smoker Start:25-Mar-2017 Instruction Type:Provider Instructions for Treatment How to access health informa tion online Indication:Anxiety Start:21-Feb-2017 Instruction Type:Patient Education How to access health informa tion online - Detail Indication:Anxiety Start:21-Feb-2017 Instruction Type:Patient Education Patient Instructions Indication:Anxiety Start:21-Feb-2017 Instruction Type:Provider Instructions for Treatment How to access health informa tion online Indication:Anxiety Start:31-Jan-2017 Instruction Type:Patient Education How to access health informa tion online - Detail Indication:Anxiety Start:31-Jan-2017 Instruction Type:Patient Education Patient Instructions Indication:Anxiety Start:31-Jan-2017 Instruction Type:Provider Instructions for Treatment Name Dates Details How to access health informa tion online Indication:BMI 31.0-31.9,adult Start:12-May-2020 Instruction Type:Patient Education How to access health informa tion online - Detail Indication:BMI 31.0-31.9,adult Start:12-May-2020 Instruction Type:Patient Education Patient Instructions Indication:BMI 31.0-31.9,adult Start:12-May-2020 Instruction Type:Provider Instructions for Treatment How to access health informa tion online Indication:Non-smoker Start:15-Mar-2020 Instruction Type:Patient Education How to access health informa tion online - Detail Indication:Non-smoker Start:15-Mar-2020 Instruction Type:Patient Education Patient Instructions Indication:Non-smoker Start:15-Mar-2020 Instruction Type:Provider Instructions for Treatment How to access health informa tion online - Detail Indication:Non-smoker Start:13-Dec-2019 Instruction Type:Patient Education How to access health informa tion online Indication:Non-smoker Start:13-Dec-2019 Instruction Type:Patient Education Patient Instructions Indication:Non-smoker Start:13-Dec-2019 Instruction Type:Provider Instructions for Treatment How to access health informa tion online Indication:BMI 32.0-32.9,adult Start:29-Nov-2019 Instruction Type:Patient Education How to access health informa tion online - Detail Indication:BMI 32.0-32.9,adult Start:29-Nov-2019 Instruction Type:Patient Education Patient Instructions Indication:BMI 32.0-32.9,adult Start:29-Nov-2019 Instruction Type:Provider Instructions for Treatment How to access health informa tion online Indication:Non-smoker Start:25-Dec-2017 Instruction Type:Patient Education How to access health informa tion online - Detail Indication:Non-smoker Start:25-Dec-2017 Instruction Type:Patient Education Patient Instructions Indication:Acid reflux Start:25-Dec-2017 Instruction Type:Provider Instructions for Treatment How to access health informa tion online Indication:Non-smoker Start:18-Nov-2017 Instruction Type:Patient Education How to access health informa tion online - Detail Indication:Non-smoker Start:18-Nov-2017 Instruction Type:Patient Education Patient Instructions Indication:Sore throat Start:18-Nov-2017 Instruction Type:Provider Instructions for Treatment How to access health informa tion online Indication:BMI 31.0-31.9,adult Start:17-Sep-2017 Instruction Type:Patient Education How to access health informa tion online - Detail Indication:BMI 31.0-31.9,adult Start:17-Sep-2017 Instruction Type:Patient Education Patient Instructions Indication:BMI 31.0-31.9,adult Start:17-Sep-2017 Instruction Type:Provider Instructions for Treatment How to access health informa tion online Indication:BMI 30.0-30.9,adult Start:27-Mar-2017 Instruction Type:Patient Education How to access health informa tion online - Detail Indication:BMI 30.0-30.9,adult Start:27-Mar-2017 Instruction Type:Patient Education Patient Instructions Indication:BMI 30.0-30.9,adult Start:27-Mar-2017 Instruction Type:Provider Instructions for Treatment How to access health informa tion online Indication:Non-smoker Start:25-Mar-2017 Instruction Type:Patient Education How to access health informa tion online - Detail Indication:Non-smoker Start:25-Mar-2017 Instruction Type:Patient Education Patient Instructions Indication:Non-smoker Start:25-Mar-2017 Instruction Type:Provider Instructions for Treatment How to access health informa tion online Indication:Anxiety Start:21-Feb-2017 Instruction Type:Patient Education How to access health informa tion online - Detail Indication:Anxiety Start:21-Feb-2017 Instruction Type:Patient Education Patient Instructions Indication:Anxiety Start:21-Feb-2017 Instruction Type:Provider Instructions for Treatment How to access health informa tion online Indication:Anxiety Start:31-Jan-2017 Instruction Type:Patient Education How to access health informa tion online - Detail Indication:Anxiety Start:31-Jan-2017 Instruction Type:Patient Education Patient Instructions Indication:Anxiety Start:31-Jan-2017 Instruction Type:Provider Instructions for Treatment Name Dates Details Patient Instructions Indication:Non-smoker Start:18-Sep-2020 Instruction Type:Provider Instructions for Treatment How to Access Health Informa tion Online using Patient Portal and [employer]rd [employer] Apps Indication:Non-smoker Start:18-Sep-2020 Instruction Type:Patient Education Patient Instructions Indication:Anxiety Start:04-Aug-2020 Instruction Type:Provider Instructions for Treatment How to Access Health Informa tion Online using Patient Portal and [employer]rd [employer] Apps Indication:Anxiety Start:04-Aug-2020 Instruction Type:Patient Education Patient Instructions Indication:Non-smoker Start:17-Jul-2020 Instruction Type:Provider Instructions for Treatment How to Access Health Informa tion Online using Patient Portal and [employer]rd [employer] Apps Indication:Non-smoker Start:17-Jul-2020 Instruction Type:Patient Education How to access health informa tion online Indication:BMI 31.0-31.9,adult Start:12-May-2020 Instruction Type:Patient Education How to access health informa tion online - Detail Indication:BMI 31.0-31.9,adult Start:12-May-2020 Instruction Type:Patient Education Patient Instructions Indication:BMI 31.0-31.9,adult Start:12-May-2020 Instruction Type:Provider Instructions for Treatment How to access health informa tion online Indication:Non-smoker Start:15-Mar-2020 Instruction Type:Patient Education How to access health informa tion online - Detail Indication:Non-smoker Start:15-Mar-2020 Instruction Type:Patient Education Patient Instructions Indication:Non-smoker Start:15-Mar-2020 Instruction Type:Provider Instructions for Treatment How to access health informa tion online - Detail Indication:Non-smoker Start:13-Dec-2019 Instruction Type:Patient Education How to access health informa tion online Indication:Non-smoker Start:13-Dec-2019 Instruction Type:Patient Education Patient Instructions Indication:Non-smoker Start:13-Dec-2019 Instruction Type:Provider Instructions for Treatment How to access health informa tion online Indication:BMI 32.0-32.9,adult Start:29-Nov-2019 Instruction Type:Patient Education How to access health informa tion online - Detail Indication:BMI 32.0-32.9,adult Start:29-Nov-2019 Instruction Type:Patient Education Patient Instructions Indication:BMI 32.0-32.9,adult Start:29-Nov-2019 Instruction Type:Provider Instructions for Treatment How to access health informa tion online Indication:Non-smoker Start:25-Dec-2017 Instruction Type:Patient Education How to access health informa tion online - Detail Indication:Non-smoker Start:25-Dec-2017 Instruction Type:Patient Education Patient Instructions Indication:Acid reflux Start:25-Dec-2017 Instruction Type:Provider Instructions for Treatment How to access health informa tion online Indication:Non-smoker Start:18-Nov-2017 Instruction Type:Patient Education How to access health informa tion online - Detail Indication:Non-smoker Start:18-Nov-2017 Instruction Type:Patient Education Patient Instructions Indication:Sore throat Start:18-Nov-2017 Instruction Type:Provider Instructions for Treatment How to access health informa tion online Indication:BMI 31.0-31.9,adult Start:17-Sep-2017 Instruction Type:Patient Education How to access health informa tion online - Detail Indication:BMI 31.0-31.9,adult Start:17-Sep-2017 Instruction Type:Patient Education Patient Instructions Indication:BMI 31.0-31.9,adult Start:17-Sep-2017 Instruction Type:Provider Instructions for Treatment How to access health informa tion online Indication:BMI 30.0-30.9,adult Start:27-Mar-2017 Instruction Type:Patient Education How to access health informa tion online - Detail Indication:BMI 30.0-30.9,adult Start:27-Mar-2017 Instruction Type:Patient Education Patient Instructions Indication:BMI 30.0-30.9,adult Start:27-Mar-2017 Instruction Type:Provider Instructions for Treatment How to access health informa tion online Indication:Non-smoker Start:25-Mar-2017 Instruction Type:Patient Education How to access health informa tion online - Detail Indication:Non-smoker Start:25-Mar-2017 Instruction Type:Patient Education Patient Instructions Indication:Non-smoker Start:25-Mar-2017 Instruction Type:Provider Instructions for Treatment How to access health informa tion online Indication:Anxiety Start:21-Feb-2017 Instruction Type:Patient Education How to access health informa tion online - Detail Indication:Anxiety Start:21-Feb-2017 Instruction Type:Patient Education Patient Instructions Indication:Anxiety Start:21-Feb-2017 Instruction Type:Provider Instructions for Treatment How to access health informa tion online Indication:Anxiety Start:31-Jan-2017 Instruction Type:Patient Education How to access health informa tion online - Detail Indication:Anxiety Start:31-Jan-2017 Instruction Type:Patient Education Patient Instructions Indication:Anxiety Start:31-Jan-2017 Instruction Type:Provider Instructions for Treatment Name Dates Details How to access health informa tion online Indication:Non-smoker Start:15-Mar-2020 Instruction Type:Patient Education How to access health informa tion online - Detail Indication:Non-smoker Start:15-Mar-2020 Instruction Type:Patient Education Patient Instructions Indication:Non-smoker Start:15-Mar-2020 Instruction Type:Provider Instructions for Treatment How to access health informa tion online - Detail Indication:Non-smoker Start:13-Dec-2019 Instruction Type:Patient Education How to access health informa tion online Indication:Non-smoker Start:13-Dec-2019 Instruction Type:Patient Education Patient Instructions Indication:Non-smoker Start:13-Dec-2019 Instruction Type:Provider Instructions for Treatment How to access health informa tion online Indication:BMI 32.0-32.9,adult Start:29-Nov-2019 Instruction Type:Patient Education How to access health informa tion online - Detail Indication:BMI 32.0-32.9,adult Start:29-Nov-2019 Instruction Type:Patient Education Patient Instructions Indication:BMI 32.0-32.9,adult Start:29-Nov-2019 Instruction Type:Provider Instructions for Treatment How to access health informa tion online Indication:Non-smoker Start:25-Dec-2017 Instruction Type:Patient Education How to access health informa tion online - Detail Indication:Non-smoker Start:25-Dec-2017 Instruction Type:Patient Education Patient Instructions Indication:Acid reflux Start:25-Dec-2017 Instruction Type:Provider Instructions for Treatment How to access health informa tion online Indication:Non-smoker Start:18-Nov-2017 Instruction Type:Patient Education How to access health informa tion online - Detail Indication:Non-smoker Start:18-Nov-2017 Instruction Type:Patient Education Patient Instructions Indication:Sore throat Start:18-Nov-2017 Instruction Type:Provider Instructions for Treatment How to access health informa tion online Indication:BMI 31.0-31.9,adult Start:17-Sep-2017 Instruction Type:Patient Education How to access health informa tion online - Detail Indication:BMI 31.0-31.9,adult Start:17-Sep-2017 Instruction Type:Patient Education Patient Instructions Indication:BMI 31.0-31.9,adult Start:17-Sep-2017 Instruction Type:Provider Instructions for Treatment How to access health informa tion online Indication:BMI 30.0-30.9,adult Start:27-Mar-2017 Instruction Type:Patient Education How to access health informa tion online - Detail Indication:BMI 30.0-30.9,adult Start:27-Mar-2017 Instruction Type:Patient Education Patient Instructions Indication:BMI 30.0-30.9,adult Start:27-Mar-2017 Instruction Type:Provider Instructions for Treatment How to access health informa tion online Indication:Non-smoker Start:25-Mar-2017 Instruction Type:Patient Education How to access health informa tion online - Detail Indication:Non-smoker Start:25-Mar-2017 Instruction Type:Patient Education Patient Instructions Indication:Non-smoker Start:25-Mar-2017 Instruction Type:Provider Instructions for Treatment How to access health informa tion online Indication:Anxiety Start:21-Feb-2017 Instruction Type:Patient Education How to access health informa tion online - Detail Indication:Anxiety Start:21-Feb-2017 Instruction Type:Patient Education Patient Instructions Indication:Anxiety Start:21-Feb-2017 Instruction Type:Provider Instructions for Treatment How to access health informa tion online Indication:Anxiety Start:31-Jan-2017 Instruction Type:Patient Education How to access health informa tion online - Detail Indication:Anxiety Start:31-Jan-2017 Instruction Type:Patient Education Patient Instructions Indication:Anxiety Start:31-Jan-2017 Instruction Type:Provider Instructions for Treatment Summary Purpose Family History No Family History Records Found Advance Directives No Advanced Directives Records FoundNo Advanced Directives Records Found Chief Complaint and Reason for Visit Chief Complaint Admit Date Hyperlipidemia, mixed December 15, 2024 7: 25am Hyperlipidemia, mixed December 15, 2024 9: 46am Additional Source Comments (unrecognized sect ion and content) No Status Records FoundNo Status Records Found INFORMATION SOURCE (unrecogn ized section and content) DATE CREATED AUTHOR 03/12/2022 [facility] DATE CREATED AUTHOR AUTHOR'S ORGANIZ ATION [facility] Teams (unrecognized sec tion and content) Team Status: Active Member Role Status Dates Dr. Sommer العراقي DO Primary Care Provider Active Team Status: Inactive Member Role Status Dates Dr. Sommer العراقي DO Primary Care Provider Active Start: December 15, 2024 End: December 15, 2024 Dr. Sommer العراقي DO Attending Provider Active Start: December 15, 2024 End: December 15, 2024 Dr. Sommer العراقي DO Referring Provider Active Start: December 15, 2024 End: December 15, 2024 Team Status: Active Member Role Status Dates Dr. Sommer العراقي DO Primary Care Provider Active Start: December 15, 2024 Dr. Sommer العراقي DO Referring Provider Active Start: December 15, 2024 Dr. Sommer العراقي DO Other Provider Active S tart: December 15, 2024 Dr. Guillaume Alfaro MD Attending Provider Active S tart: December 15, 2024 Goals (unrecognized section and content) Goals may be documented in a n alternate section FOR RECORDS PERTAINING TO PATIENTS WHO ARE OR HAVE BEEN ENROLLED IN A CHEMICAL DEPENDENCY/SUBSTANCEABUSE PROGRAM, SOME INFORMATION MAY BE OMITTED. This clinical summary was aggregated from multiple sources. Caution should be exercised in using it in the provision of clinical care. This summary normalizes information from multiple sources, and as a consequence, information in this document may materially change the coding, format and clinical context of patient data. In addition, data may be omitted in some cases. CLINICAL DECISIONS SHOULD BE BASED ON THE PRIMARY CLINICAL RECORDS. [facility] [employer] [facility]. provides no warranty or guarantee of the accuracy or completeness of information in this document.
== END | disposition home or self-care (01) ==
PROVIDERS: PCP Internal Medicine; Visit Provider Otolaryngology
DX: G47.30 Sleep apnea, unspecified (principal)
CPT/HCPCS: 95806